=== PATIENT | male | born 1960 | race Caucasian/White ===

== ENCOUNTER → 2020-04-11 08:40 | Outpatient (CLI) | payer OTHER, SELFPAY ==
[2020-04-11 09:21] LABS: Bacteria Urine None Seen; RBC Urine None Seen (0-5/HPF); WBC Urine None Seen (0-5/HPF)
[2020-04-11 10:02] LABS: Add Manual Diff / Slide Review NO; Basophils Absolute Auto 0 /uL (0-100); Basophils Percent Auto 0.4 % (0-2); Eosinophils Absolute Auto 100 /uL (0-450); Eosinophils Percent Auto 1.6 % (2-4); Hematocrit 46.4 % (41-53); Hemoglobin 15.7 g/dL (13.5-17.5); Lymphocytes Absolute Auto 1700 /uL (1100-4500); Lymphocytes Percent Auto 25.1 % (25-40); Mean Corpuscular HGB Conc 33.8 % (30-36); Mean Corpuscular Hemoglobin 29.7 PG (26-34); Mean Corpuscular Volume 87.9 fL (80-100); Monocytes Absolute Auto 800 /uL (0-900); Monocytes Percent Auto 11.1 % (3-14); Neutrophils Absolute Auto 4200 /uL (1500-7000); Neutrophils Percent Auto 61.8 % (50-75); Platelet Count 295 X10^3/uL (150-400); Red Blood Cell Count 5.28 X10^6/uL (4.5-5.9); Red Cell Distribution Width 13.5 % (11.6-14.8); White Blood Cell Count 6.8 X10^3/uL (4.5-11.0)
[2020-04-11 10:04] LABS: Appearance Urine UA CLEAR; Bilirubin Urine UA NEGATIVE (NEGATIVE); Color Urine UA YELLOW; Glucose Urine UA NEGATIVE (Negative); Ketones Urine UA NEGATIVE (NEGATIVE); Leukocyte Esterase Urine UA NEGATIVE (NEGATIVE); Nitrite Urine UA NEGATIVE (Negative); Occult Blood Urine UA NEGATIVE (Negative); Protein Urine UA NEGATIVE (Negative); Specific Gravity Urine UA 1.015 (1.000-1.035); Urobilinogen Urine UA 0.2 E.U./dL (0.2)
[2020-04-11 10:21] LABS: Hemoglobin A1C% w Est Avg Glu 5.8 % (4.0-6.0)
[2020-04-11 10:27] LABS: BUN Creatinine Ratio 20.6 (6-22); Blood Urea Nitrogen 14 mg/dL (9-20); Calcium 9.5 mg/dL (8.4-10.2); Carbon Dioxide 27 mmol/L (22-32); Chloride 101 mmol/L (98-107); Estimated Glomerular Filt Rate > 60.0 mL/min (>60); Glucose 110 mg/dL (80-110); HEMOLYSIS < 15 (0-50); Potassium 4.3 mmol/L (3.4-5.1); Sodium 138 mmol/L (137-145)
[2020-04-11 10:39] LABS: Culture Indicated Urine Cult Not Indicated; Urine Comments Microscopic Normal
== END ==
PROVIDERS: PCP Family Medicine; Referring Provider Orthopaedic Surgery; Visit Provider Orthopaedic Surgery
DX: Z01.818 Encounter for other preprocedural examination (principal); Z01.812 Encounter for preprocedural laboratory examination; R73.9 Hyperglycemia, unspecified; N39.0 Urinary tract infection, site not specified
CPT/HCPCS: 36415; 80048; 81001; 83036; 85025; 93005

== ENCOUNTER → 2020-05-18 13:15 | Outpatient (CLI) | payer OTHER, SELFPAY ==
[2020-05-18 14:50] LABS: COVID19 -Nasal RAPID Negative (Negative)
== END ==
PROVIDERS: PCP Family Medicine; Visit Provider Physician Assistant
DX: Z11.59 Encounter for screening for other viral diseases (principal)
CPT/HCPCS: 87635

== ENCOUNTER 2020-05-22 14:30 | Observation (INO) | payer OTHER, SELFPAY ==
[2020-05-12 12:35] VITALS: BMI 41.8
[2020-05-21] VITALS (17 sets, daily range): BP systolic 84–180; BP diastolic 46–84; PULSE 64–86; RESP 9–20; TEMP 36.2–37.2; O2SAT 90–99; BMI 42.0
[2020-05-21] MEDS: PREGABALIN 75 MG CAPSULE PO (07:05)
[2020-05-21] MEDS: LACTATED RINGERS 1,000 ML 42 ML IV ×2 (07:05→08:40)
[2020-05-21] MEDS: ACETAMINOPHEN 325 MG TABLET 975 MG PO (07:05)
[2020-05-21] MEDS: VANCOMYCIN 1,000 MG/200 ML PIGGYBACK 200 MG IV (07:10)
[2020-05-21] MEDS: CELECOXIB 200 MG CAPSULE PO (07:10)
--- NOTE | 2020-05-21 07:38 | PM.PREOP ---
Pre-operative Note COVID-19 COVID-19 status: Negative Interval Note History & Physical reviewed/Exam performed by Physician: Yes Changes to H&P: No
--- NOTE | 2020-05-21 07:38 | PM.OP.1 ---
Operative Date/Time/Diagnoses Date of procedure: 05/21/20 Time of procedure: 07:58 Pre-op diagnosis: right knee OA Post-op diagnosis: same Procedure & Clinicians Procedure: Right total knee replacement Same procedure as scheduled: Yes Indications: The patient has had progressively worsening right knee pain with radiographic changes consistent with arthritis. Non-operative management has failed and the patient has requested total knee replacement. The risks, benefits and alternatives to surgery were discussed with the patient prior to proceeding. Risks discussed included, but were not limited to, failure to relieve pain, stiffness, infection, nerve damage, deep venous thrombosis, pulmonary embolism, stroke, coma, heart attack, permanent paralysis and , as well as the potential need for eventual revision of the prosthetic. Surgeon: Yazmin De La Cruz Senior Clinical Project Manager: Craig Argueta Anesthesia Type: General and Spinal Operative Notes Findings: Severe right knee osteoarthritis, adequate stability, good bone Closure Type: primary Specimen(s): none sent Prosthetic devices, grafts, tissues, transplants, or devices: [facility] BCS 2 8 femur, 8 tibia, +10 poly, 41 oval patella Applied: drain(s) Estimated Blood Loss (mL): 250 Tourniquet time (min): 74 Procedure in detail: The patient was seen in the pre-operative area, where the patient identified the right knee as the operative site and this was marked with my initials. The patient received pre-operative antibiotics, and was taken to the operating room and placed on the operative table in the supine position. After satisfactory anesthesia, a multimedia services manager out was performed. The right leg was encircled with a tourniquet about the proximal thigh, and the leg was prepared from the toes to the tourniquet with ChloroPrep in the usual fashion and draped through sterile drapes. The leg was elevated and exsanguinated with Eschmark bandage and the tourniquet inflated to [250] mmHg pressure. The knee was approached through an approximately 18 cm incision centered over the patella and carried into the knee through a medial parapatellar arthrotomy. A portion of the medial and lateral meniscus was resected. Soft tissue was carefully mobilized around the patella the patella was measured with a caliper. Bone was resected from the patella and the patellar height was reconstituted with up an appropriate sized patellar component. A cover was then placed on the patella. A small amount of additional medial and lateral meniscus was resected. The distal femur was cut at 5?. A [+2] cut was used. It looked like an appropriate distal femoral cut and the cut was made without difficulty. An extramedullary guide was used for the tibial cut. 10 mm was resected off the least affected side.The tibia was prepared. The rotation was assessed. The patient was placed in extension residual medial and lateral meniscus as well as any residual bone was carefully resected. [No] additional tibia was resected. Hemostasis was achieved especially posteriorly. Additional local was injected into the posterior capsule. The extension gap was assessed and additional releases for gap balancing were performed as necessary. It was checked with the gap soa architect. The femoral component was trial was placed and the notch was finished. The rotation was assessed and the appropriate size femoral guide was placed on the distal femur and finishing cuts were made. There was no evidence of notching. The anterior, posterior and chamfer cuts were then made. The posterior osteophytes and soft tissues were then removed. The posterior capsule was injected with part of a mixture of 60 ml 0.25% Marcaine mixed with 20 ml Exparel for post operative pain control. The remainder of this mixture was injected into the capsule and subcutaneous tissues during cement curing. The tibial and femoral components were then placed and the knee placed through a range of motion. Range of motion was [0-130], with good stability throughout the range. The trials were then removed, and the tibia was finished. The bone was prepared with pulsatile lavage, and dried with a sponge. Cement was applied and the final prosthetics placed. Excess cement was removed during and after cement curing. A brief Betadine soak was performed. After confirming there was no extruded cement posteriorly, the final tibial insert was placed. The knee was copiously irrigated and the tourniquet deflated. Hemostasis was obtained with the Bovie cautery. A drain was placed and brought out superolaterally. The capsule was closed with interrupted nonabsorbable suture. The subcutaneous layer was closed with barbed sutures, and the skin with a running 3-0 V-Lock suture and Surgical glue. An Aquacel Ag dressing was applied and the patient was taken to recovery having tolerated the procedure well. Complications: none Post-operative Condition: stable Disposition: Acute Care Plan for aftercare: The patient will be maintained on a standard total knee replacement protocol with weight bearing as tolerated. The patient will receive aspirin and sequential compression devices for DVT prophylaxis. The patient will be discharged home when safe for the home environment.
[2020-05-21] MEDS: CLINDAMYCIN 900 MG/50 ML PIGGYBACK 50 MG IV ×3 (07:57→23:53)
[2020-05-21] MEDS: TRANEXAMIC ACID 1,000 MG VIAL 1000 MG INJ ×2 (08:05→09:40)
--- NOTE | 2020-05-21 08:14 | SUR.OPER ---
Supine on padded OR bed. Pillow under head, arms secured on padded armboards <90 degree abduction. Safety belt across torso. Non-operative leg secured with tape over blanket over lower leg. Operative leg secured in DeMayo positioner. Foam padded brace at thigh of operative leg.
[2020-05-21] MEDS: BUPIVACAINE LIPOSOME 266 MG/20 ML VIAL INJ (08:19)
[2020-05-21] MEDS: BUPIVACAINE 0.25% W/ EPI (PF) 10 ML VIAL 20 ML INJ (08:20)
[2020-05-21] MEDS: SODIUM CHLORIDE IRRIG SOLUTION 250 ML, POVIDONE-IODINE SPONGE STICKS 1 APPLIC IRR (08:22)
--- NOTE | 2020-05-21 10:40 | DI.RAD.S_ITS ---
PROCEDURE: XR KNEE RT 1TO2V INDICATIONS: post operative films TECHNIQUE: 2 view(s) of the knee acquired. COMPARISON: None. FINDINGS: Bones: Patient is status post knee joint arthroplasty. Hardware components are in expected positions. Visualized bony structures are intact. Soft tissues: Overlying postoperative changes are noted. IMPRESSION: Expected postsurgical change for right knee arthroplasty. Dictated by: Kailey Gilman MD, PhD on 05/21/2020 at 16:43 Approved by: Kailey Gilman MD, PhD on 05/21/2020 at 16:43
[2020-05-21] MEDS: LACTATED RINGERS 1,000 ML 100 ML IV ×2 (11:20→21:28)
[2020-05-21] MEDS: ACETAMINOPHEN 325 MG TABLET 650 MG PO ×2 (12:33→21:28)
[2020-05-21] MEDS: IBUPROFEN 400 MG TABLET PO ×3 (12:33→21:27)
[2020-05-21] MEDS: OXYCODONE IR 5 MG TABLET PO (12:57)
[2020-05-21] MEDS: HYDROMORPHONE 2 MG TABLET PO ×2 (14:36→23:53)
--- NOTE | 2020-05-21 16:53 | PT.IIE ---
Current Diagnoses Unilateral primary osteoarthritis, right knee (05/21/20) Surgery Performed Operation Date: 05/21/20 07:45 Actual Procedures p Total Knee Arthroplasty(Right) - Yazmin De La Cruz MD Surgical History (Last Updated 05/12/20 @ 13:12 by Lucero Banda RN) History of arthroscopy of left shoulder (Acute) History of carpal tunnel release (Acute) History of nasal surgery (Acute) Hx of arthroscopy of left knee (Acute) Hx of knee surgery (Acute ~1975) Medical History (Last Updated 05/12/20 @ 13:12 by Lucero Banda RN) Diverticulitis (Acute) Enlarged prostate (Acute) HLD (hyperlipidemia) (Acute) HTN (hypertension) (Acute) IBS (irritable bowel syndrome) (Acute) OBDULIA on CPAP (Acute) Osteoarthritis (Acute) Physical Therapy Inpatient Evaluation/Re-Eval M1 PT/OT-IP Prior Functional Status Start: 05/21/20 13:41 Freq: NEEDED Status: Active Protocol: Document 05/21/20 14:42 DE (Rec: 05/21/20 14:46 DE [id number]) Medical Review Prior Functional Status Medical History Reviewed Yes Diet/Fluid Consistency Regular Communication WNL. No deficits noted. Able to make needs known. Mobility and Gait IND for all mobility and amb without limitations or using an AD at baseline. Activities of Daily Living and IADL's IND for all ADLs and IADLs including driving at baseline. Social History Household Members spouse Living Arrangements House Number of Floors (Floors) One Floor Number of Stairs To Enter/Railing? 2 small PF steps with no railing. 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 Pt is currently on sick leave. M2 PT-IP Current Condition Start: 05/21/20 13:41 Freq: NEEDED Status: Active Protocol: Document 05/21/20 15:29 DE (Rec: 05/21/20 16:03 DE [id number]) Physical Therapy Current Condition Current Condition Evaluation Date 05/21/20 Treatment Diagnosis R TKA; Difficulty with walking Onset Date 05/21/20 Weight Bearing Status Weight Bearing Status Weight Bear as Tolerated M3 PT-IP Subjective Start: 05/21/20 13:41 Freq: NEEDED Status: Active Protocol: Document 05/21/20 15:29 DE (Rec: 05/21/20 16:03 DE [id number]) Subjective Physical Therapy Visit Type Type Initial Evaluation Visit Start Time 14:28 Visit Stop Time 15:26 Total Visit Minutes 38 Notes SPT Anand led the session under direct supervision of PT Pennie throughout the entire session. Pt was seen in split visit from 1428 to 1440 and from 1500 to 1526. Pt's was present throughout the entire session. Number of WREATH MACHINE OPERATOR Visits 0 Physical Therapy Visit Comments Patient Comments Pt is agreeable to do PT. Patient Goals To return home. Therapy Pain Assessment Pain When Pain Assessed At Rest Pain Present Pain Present Pain Reported Location neck Intensity 5 Scale Used Numeric (0 - 10) Description Aching Pain Management Techniques Timing of Activity with Medications M4 PT-IP Mobility and Gait Start: 05/21/20 13:41 Freq: NEEDED Status: Active Protocol: Document 05/21/20 15:29 DE (Rec: 05/21/20 16:03 DE [id number]) PT-Bed Mobility Assessment Supine to Sit Supine to Sit Contact Guard Assistance, Bedrails Scooting Scooting to Edge of Bed Contact Guard Assistance PT-Transfer Assessment Sit to and From Stand Sit to and from Stand Contact Guard Assistance,Use of Upper Extremities Equipment Transfer Assistive Device Gait Belt,Front Wheeled Walker Orthotic/Prosthetic Devices or Brace: No Transfers Transfer Destination Chair Transfer Technique Stand Step Pivot Transfer Ability Level of Assist Contact Guard Assistance,Use of Upper Extremities Comments Mobility Comments Pt was lying supine in bed with elevated HOB as PT and SPT arrived. Pt's was at bedside. BP in supine was 148/ 89. Pt completed supine to sit at R EOB from flat bed with CGA and use of R bedrail. At EOB, pt performed R heel slides x8 with wash cloth under his foot. Pt then completed sit to stand with CGA and FWW. Pt relied heavily on momentum to stand up. Pt performed side to side weight shifting exercise and was able to tolerate WB on his RLE. Pt then amb ~8 ft to the toilet with CGA and FWW. Pt demonstrated step-to gait pattern with limping, decreased stride length, and decreased feet clearance. Pt attempted to void in standing but was unsuccessful. Pt amb ~ 20 ft out of the bathroom, around foot of bed, and back to the chair with CGA and FWW. Pt demonstrated mild labored breathing during and after amb . Pt sat down on the chair with CGA and use of B armrests . Pt was reclined in the chair . Call light placed within reach. Gait Assessment Gait Gait Assistance Required: Contact Guard Assist Distance (Feet) 20 Able to Maintain Weight Bearing Status Yes During Gait Assistive Devices Assistive Device Gait Belt,Front Wheeled Walker Orthotic/Prosthetic Devices or Brace: No Gait Deviations General Gait Pattern Antalgic,Decreased Stride Length,Decreased Feet Clearance,Flexed Trunk,Step-to Gait Factors Limiting Gait Function Factors Limiting Gait Function Decreased Activity Tolerance, Decreased Strength,Limited Range of Motion,Pain,Poor Balance,Respiratory Distress Comments Gait Comments See mobility comments. Stair Climbing Assessment Comments Stair Climbing Comments Not assessed. PT-Balance Assessment Sitting Balance and Reactions Static Sitting Balance Ability Normal Dynamic Sitting Balance Ability Normal Standing Balance and Reactions Static Standing Balance Ability Good Dynamic Standing Balance Ability Fair M5 PT-IP Objective Assessments Start: 05/21/20 13:41 Freq: NEEDED Status: Active Protocol: Document 05/21/20 15:29 DE (Rec: 05/21/20 16:03 DE [id number]) Orientation Orientation/Cognition Level of Alertness Alert Orientation Name,Age,Birthday,Month,Date, Year,Day of Week,Place, Situation Language Function Ability No Deficits Noted Safety Awareness Understands Safety Issues Memory Description No Deficits Noted Gross Range of Motion Lower Extremity ROM Assessment Right Impaired Strength Lower Extremity Strength Assessment Right Impaired Coordination Assessment Gross Coordination Gross Coordination WNL Sensation Assessment Sensation Gross Sensation WNL Light Touch Intact Muscle Tone Muscle Tone WNL Yes M6 PT-IP Treatment Start: 05/21/20 13:41 Freq: NEEDED Status: Active Protocol: Document 05/21/20 15:29 DE (Rec: 05/21/20 16:03 DE [id number]) Physical Therapy Treatment Exercises Exercises Ankle Pumps,Gluteal Sets,Quad Sets,Heel Slides Education Education Provided Weight Bearing Status,Post-Op Packet,Safety Other Treatments Other Treatment Performed Pt education was provided on WB status, safety, and role of PT. M7 PT-IP Assessment and Plan Start: 05/21/20 13:41 Freq: NEEDED Status: Active Protocol: Document 05/21/20 15:29 DE (Rec: 05/21/20 16:03 DE [id number]) PT Summary Assessment and Plan Potential Rehabilitation Potential Good Status of Condition at Evaluation Stable Summary Impairments Pain,ROM,Strength,Balance,Bed Mobility,Transfers,Gait, Activity Tolerance Assessment Summary Tyrone is a 59 yo male s/p R TKA POD0. At baseline, pt was IND for all mobility, amb, and ADLs including driving without limitations or using assistive device. On evaluation, pt requires CGA for all mobility, transfers, and amb with use of FWW. Pt amb ~20 ft without any loss of balance but demonstrated some labored breathing. Pt is not safe to d/c home at this point . Pt will need to improve activity tolerance and perform 2 PF steps without railing before d/c. PT anticipates pt will d/c home with assistance and FWW once medically stable. Pt will benefit from outpatient PT to improve his knee strength and ROM. Goals Bed Mobility Goal Standby Assistance Transfer Goal Standby Assistance,Front Wheeled Walker Gait Goal Standby Assistance,Front Wheel Walker Gait Distance 100 Other Goals Pt will perform 2 PF steps with FWW and no railing. Days to Meet Goals 5 Frequency of Treatment Frequency Of Treatment Twice a Day Treatment Plan Physical Therapy Treatment Plan Bed Mobility Training,Transfer Training,Gait Training, Therapeutic Exercise,Balance Retraining,Post Op Education, Discharge Planning,Hot or Cold Pack Other Recommendations and Next Treatment Supine to sit without using Focus bedrail. 2 PF steps. Amb distance. Recommendations To Nursing Amount of Assist Needed 1 Person Assist Discharge Recommendations PT Discharge Recommendations Home with Assistance, Outpatient PT Transportation Needs at Discharge Private Vehicle
--- NOTE | 2020-05-21 17:03 | PC.NURSE ---
Addendum entered by Xochilt Bailey R.N. 05/21/20 22:20: Pt continues to have increased H/V drainage 510 ml for shift total. Dr. Guerra notified. Per MD continue to monitor drainage. Addendum entered by Xochilt Bailey R.N. 05/21/20 22:13: Pt noted to have increased drainage from H/V. Dr. De La Cruz notified. Per MD clamp drain for 2 hours. Drain clamped from [id number]. Original Note: Bladder scanned; 446 urine retained. Straight cath completed 650 ml UOP. Pt tolerated well.
[2020-05-21] MEDS: OXYCODONE IR 10 MG TABLET PO ×2 (17:08→21:27)
[2020-05-21] MEDS: ASPIRIN EC 81 MG TABLET PO (21:25)
[2020-05-21] MEDS: DOCUSATE 100 MG CAPSULE PO (21:25)
[2020-05-21] MEDS: lisinopriL 10 MG TABLET 30 MG PO (21:25)
[2020-05-21] MEDS: ATORVASTATIN 20 MG TABLET 10 MG PO (21:26)
[2020-05-21] MEDS: TAMSULOSIN 0.4 MG CAPSULE 0.8 MG PO (21:26)
[2020-05-22] VITALS (8 sets, daily range): BP systolic 137–158; BP diastolic 70–82; PULSE 78–93; RESP 12–16; TEMP 36.1–36.9; O2SAT 94–98
[2020-05-22] MEDS: IBUPROFEN 400 MG TABLET PO ×6 (00:01→21:06)
--- NOTE | 2020-05-22 00:37 | PC.NURSE ---
Patient seen and assessed at 0005. Is alert and oriented. Breath sounds CTA with RA sat of 95%. HRR. BP elevated at 143/76 but was trending higher yesterday afternoon/evening. Denies nausea. BT present and states he has passed flatus. Voiding know per urinal after having retention problems post op; denies dysuria, frequency or urgency. Aquacel dressing covered with andrea wrap to right knee is intact with small spot of drainage noted on distal end. States pain is currently 6/10 but was too early to give Oxycodone so switched to po Dilaudid since Oxycodone does not seem to be lasting long enough; also medicated with scheduled Ibuprofen and ice pack applied. CMS is intact. Wearing bilateral calf SCD's. Fall risk score is moderate but in room and patient verbalizes agreement to call for assistance so bed alarm is not activated at this time. Patient reports he was up with therapy yesterday walking with walker and 1 assist and also worked on stairs and is expecting to DC in a.m.
[2020-05-22] MEDS: HYDROMORPHONE 2 MG TABLET PO ×2 (04:02→10:59)
[2020-05-22 06:12] LABS: Hematocrit 38.2 % (41-53); Hemoglobin 12.9 g/dL (13.5-17.5)
--- NOTE | 2020-05-22 09:31 | P.DS_ITS ---
History of Present Illness History of Present Illness Date Patient Seen: 05/22/20 Time Patient Seen: 09:31 Chief complaint: OPB Narrative: Patient's pain is mild. Denies fever /chills. No nausea /vomiting. Discharge Providers Provider Discharge Date: 05/22/20 Primary care physician: Gino Gu MD Consults: 05/20/20 10:40 Consult to Anesthesiology Routine Comment: Consulting Provider: Anesthesiologist Reason for consultation: Regional block for post operative pain control 05/21/20 11:06 Consult to Discharge Planning Routine Comment: Consult to Physical Therapy Evaluate & Treat Comment: Physician Instructions: postop TKA protocol Consult to Respiratory Therapy Evaluate & Treat Comment: Physician Instructions: Evaluate and treat Discharge provider: Craig Argueta PA-C Summary Hospital Course Discharge Diagnosis: Right knee osteoarthritis Hospital Course: [address] [address] Operative Note Patient: Tyrone Ellis CMR#: [id number] : 1960Acct:[id number] Age/Sex: 59 / M Date of Service: 05/21/20 Provider: Yazmin De La Cruz MD Operative Date/Time/Diagnoses Date of procedure: 05/21/20 Time of procedure: 07:58 Pre-op diagnosis: right knee OA Post-op diagnosis: same Procedure & Clinicians Procedure: Right total knee replacement Same procedure as scheduled: Yes Indications: The patient has had progressively worsening right knee pain with radiographic changes consistent with arthritis. Non-operative management has failed and the patient has requested total knee replacement. The risks, benefits and alternatives to surgery were discussed with the patient prior to proceeding. Risks discussed included, but were not limited to, failure to relieve pain, stiffness, infection, nerve damage, deep venous thrombosis, pulmonary embolism, stroke, coma, heart attack, permanent paralysis and , as well as the potential need for eventual revision of the prosthetic. Surgeon: Yazmin De La Cruz Armhole Feller Handstitching Machine: Craig Argueta Anesthesia Type: General and Spinal Operative Notes Findings: Severe right knee osteoarthritis, adequate stability, good bone Closure Type: primary Specimen(s): none sent Prosthetic devices, grafts, tissues, transplants, or devices: [facility] [employer] [facility] [employer] [facility] BCS 2 8 femur, 8 tibia, +10 poly, 41 oval patella Applied: drain(s) Estimated Blood Loss (mL): 250 Tourniquet time (min): 74 Patient admitted to the hospital for right total knee arthroplasty. Patient consented to the same. Patient taken to operating room yesterday underwent right total knee replacement. Patient back in his room recovering well as in stable condition. Patient did well with physical therapy. Patient does have assistance at home. He will be discharged home today in stable condition. Status at Discharge Cognitive/behavioral status at discharge: at baseline, oriented Functional status at discharge: uses cane/walker Overall status at discharge: patient is progressing back to baseline Time Spent with Patient Time spent: Less than 30 minutes Exam Vital Signs (past 8 hours): - 05/22/20 03:50 05/22/20 08:05 Temperature 98.0 F 97.5 F L Pulse Rate 83 78 Respiratory Rate 16 16 Blood Pressure 139/70 137/77 Pulse Oximetry 96 95 Oxygen Delivery Method Room Air Oxygen Flow Rate 0 Narrative Exam Narrative: 59-year-old male resting comfortably in bed in no apparent distress. Right knee dressing is clean, dry and intact. Motor functions intact distal right lower extremity. Sensation grossly intact to light touch distal right lower extremity. Objective Labs Result Diagrams: 05/22/20 05:30 Labs: Laboratory Results - last 24 hr 05/22/20 05:30 Hgb 12.9 L Hct 38.2 L Discharge Assessment & Plan Assessment and Plan Assessment: Patient progressing as expected status post right total knee arthroplasty Plan of Treatment: Discharged today in stable condition. Discharge Plan Discharge Plan Patient Disposition: Home Discharge orders & Medications Discharge Orders: Discharge (Order); Ordered 05/22/20 Ordered By: Craig Argueta Prescriptions: Continued atorvastatin 10 mg Tablet 10 mg PO BEDTIME RF: 0 tamsulosin [Flomax] 0.4 mg Capsule 0.8 mg PO BEDTIME RF: 0 lisinopril 30 mg Tablet 30 mg PO BEDTIME RF: 0 ibuprofen 600 mg Tablet 600 mg PO QD-BID PRN (Reason: Pain) RF: 0 Multi Complete with Iron 18-400 mg-mcg Tablet 1 tab PO DAILY RF: 0 Follow up/Referrals: Gino Gu MD [Primary Care Provider] - Yazmin De La Cruz MD [Physician] - (2 weeks) Diet/Activity/Treatments Activity: WBAT Cold/Heat Therapy: ice as needed Skin/Wound/Dressing Care Report to your healthcare provider any signs of infection, such as:: chills, fever, increased pain, unusual drainage and unusual redness Dressing: keep clean and dry Visit Report/Discharge Packet Instructions: DI for Knee Replacement Stand Alone Forms: Surgery Discharge Discharge Data Primary Care Provider: Gino Gu Attending Provider: Yazmin De La Cruz VTE Deep Vein Thrombosis/Pulmonary Embolism Present on Admission: No
[2020-05-22] MEDS: DOCUSATE 100 MG CAPSULE PO ×2 (09:40→21:06)
[2020-05-22] MEDS: ASPIRIN EC 81 MG TABLET PO ×2 (09:41→21:07)
[2020-05-22] MEDS: MULTIVITAMIN 1 TABLET 1 TAB PO (09:41)
[2020-05-22] MEDS: OXYCODONE IR 10 MG TABLET PO ×3 (09:41→19:11)
[2020-05-22] MEDS: ACETAMINOPHEN 325 MG TABLET 650 MG PO ×3 (09:42→21:06)
--- NOTE | 2020-05-22 12:03 | PC.NURSE ---
Addendum entered by Kourtney Mendez R.N. 05/22/20 14:48: Patient did not want to do afternoon PT because of pain level. I did get him to walk in the [place] with me with the walker. Patient would like to stay another night to continue PT tomorrow and keep up pain control. Patient pain level has now come to a 6/10. Original Note: Patient pain control an issue after PT this AM, patient reports pain 8/10. Patient given 10mg oxycodone at 0941 and 2mg of dilaudid at 1100. Still has no reports of pain relief. Dannielle BLAKE telephoned and she gave a verbal order for 4mg of Dilaudid Q3 and 50mg of Vistaril Q6. Will see if these changes help pain level.
--- NOTE | 2020-05-22 12:16 | PT.IPTN ---
Current Diagnoses Unilateral primary osteoarthritis, right knee (05/21/20) Surgery Performed Operation Date: 05/21/20 07:45 Actual Procedures p Total Knee Arthroplasty(Right) - Yazmin De La Cruz MD Physical Therapy Treatment Note M2 PT-IP Current Condition Start: 05/21/20 13:41 Freq: NEEDED Status: Active Protocol: Document 05/21/20 15:29 DE (Rec: 05/21/20 16:03 DE [id number]) Physical Therapy Current Condition Current Condition Evaluation Date 05/21/20 Treatment Diagnosis R TKA; Difficulty with walking Onset Date 05/21/20 Weight Bearing Status Weight Bearing Status Weight Bear as Tolerated M3 PT-IP Subjective Start: 05/21/20 13:41 Freq: NEEDED Status: Active Protocol: Document 05/22/20 11:34 DE (Rec: 05/22/20 12:02 DE [id number]) Subjective Physical Therapy Visit Type Type Treatment Note Visit Start Time 09:42 Visit Stop Time 10:12 Total Visit Minutes 30 Notes SPT Anand led the session under direct supervision of PT Eulogio throughout the entire session. Number of DENTAL SERVICE TECHNICIAN Visits 0 Physical Therapy Visit Comments Patient Comments Pt is agreeable to do PT. Patient Goals To return home. Therapy Pain Assessment Pain When Pain Assessed At Rest Pain Present Pain Present Pain Reported Location Right Knee Intensity 3 Scale Used Numeric (0 - 10) Description Aching M4 PT-IP Mobility and Gait Start: 05/21/20 13:41 Freq: NEEDED Status: Active Protocol: Document 05/22/20 11:34 DE (Rec: 05/22/20 12:02 DE [id number]) PT-Bed Mobility Assessment Supine to Sit Supine to Sit Contact Guard Assistance Scooting Scooting to Edge of Bed Contact Guard Assistance PT-Transfer Assessment Sit to and From Stand Sit to and from Stand Contact Guard Assistance,Use of Upper Extremities Equipment Transfer Assistive Device Gait Belt,Front Wheeled Walker Orthotic/Prosthetic Devices or Brace: No Transfers Transfer Destination Chair Transfer Technique Stand Step Pivot Transfer Ability Level of Assist Contact Guard Assistance,Use of Upper Extremities Comments Mobility Comments Pt was lying supine in bed with elevated HOB as PT and SPT arrived. Pt completed supine to sit at R EOB from flat bed CGA without using bedrail. Pt then performed sit to stand with FWW CGA in staggered stance. Pt was able to stand up in a more controlled way than yesterday without using excessive momentum. Pt amb ~8 ft to the toilet with FWW CGA. Pt attempted to void in standing but was unsuccessful. Pt then amb ~60 ft around foot of bed, out in the hallway with FWW CGA. Pt demonstrated antalgic step-to gait pattern decreased stride length, decreased feet clearance, and lack of knee extension. When pt was instructed to try step-through pattern, he was able to do it but he had decreased L stride length compared to the R. Pt demonstrated sweating and mild labored breathing. Pt sat down on w/c and rested for ~1 min. Pt then performed 1 PF step up and down x1 with FWW and 1P min assist. Pt demonstrated slight unsteadiness for ascending but was stable for descending. Pt then amb ~60 ft back to his room and sat down on the chair with FWW CGA. Call light placed within reach. Gait Assessment Gait Gait Assistance Required: Contact Guard Assist Distance (Feet) 60 Able to Maintain Weight Bearing Status Yes During Gait Assistive Devices Assistive Device Gait Belt,Front Wheeled Walker Orthotic/Prosthetic Devices or Brace: No Gait Deviations General Gait Pattern Antalgic,Decreased Stride Length,Decreased Feet Clearance,Flexed Trunk,Step-to Gait Factors Limiting Gait Function Factors Limiting Gait Function Decreased Activity Tolerance, Decreased Strength,Limited Range of Motion,Pain,Poor Balance,Respiratory Distress Comments Gait Comments See mobility comments. Stair Climbing Assessment Evaluation Level of Assist On Stairs Minimal Assistance,1 Person Assistance Devices Stair Climbing Assistive Devices Front Wheel Walker Technique/Endurance Stair Climbing Direction Ascend and Descend Stair Climbing Technique Step to Step Number of Steps Climbed 1 Stair Climbing Set # Repetitions (reps) 1 Comments Stair Climbing Comments See mobility comments. PT-Balance Assessment Sitting Balance and Reactions Static Sitting Balance Ability Normal Dynamic Sitting Balance Ability Normal Standing Balance and Reactions Static Standing Balance Ability Good Dynamic Standing Balance Ability Fair M5 PT-IP Objective Assessments Start: 05/21/20 13:41 Freq: NEEDED Status: Active Protocol: Document 05/21/20 15:29 DE (Rec: 05/21/20 16:03 DE [id number]) Orientation Orientation/Cognition Level of Alertness Alert Orientation Name,Age,Birthday,Month,Date, Year,Day of Week,Place, Situation Language Function Ability No Deficits Noted Safety Awareness Understands Safety Issues Memory Description No Deficits Noted Gross Range of Motion Lower Extremity ROM Assessment Right Impaired Strength Lower Extremity Strength Assessment Right Impaired Coordination Assessment Gross Coordination Gross Coordination WNL Sensation Assessment Sensation Gross Sensation WNL Light Touch Intact Muscle Tone Muscle Tone WNL Yes M6 PT-IP Treatment Start: 05/21/20 13:41 Freq: NEEDED Status: Active Protocol: Document 05/22/20 11:34 DE (Rec: 05/22/20 12:02 DE [id number]) Physical Therapy Treatment Exercises Exercises Ankle Pumps,Gluteal Sets,Quad Sets,Heel Slides Education Education Provided Weight Bearing Status,Post-Op Packet,Safety Other Treatments Other Treatment Performed Pt education was provided on WB status, safety, and role of PT. M7 PT-IP Assessment and Plan Start: 05/21/20 13:41 Freq: NEEDED Status: Active Protocol: Document 05/22/20 11:34 DE (Rec: 05/22/20 12:02 DE [id number]) PT Summary Assessment and Plan Potential Rehabilitation Potential Good Status of Condition at Evaluation Stable Summary Impairments Pain,ROM,Strength,Balance,Bed Mobility,Transfers,Gait, Activity Tolerance Assessment Summary Overall, pt tolerated treatment well and was able to demonstrate improvement in mobility and amb. Pt also performed 1 PF step up and down with FWW and 1P min assist. Pt demonstrated slight unsteadiness when ascending. Pt will need to perform 2 PF steps with FWW without any unsteadiness. PT plan to see pt in the PM with his to ensure safety and provide CG. PT anticipates pt will d/c home with assistance once he is able to perform 2 PF steps and medically stable. Goals Bed Mobility Goal Standby Assistance Transfer Goal Standby Assistance,Front Wheeled Walker Gait Goal Standby Assistance,Front Wheel Walker Gait Distance 100 Other Goals Pt will perform 2 PF steps with FWW and no railing. Days to Meet Goals 5 Frequency of Treatment Frequency Of Treatment Twice a Day Treatment Plan Physical Therapy Treatment Plan Bed Mobility Training,Transfer Training,Gait Training, Therapeutic Exercise,Balance Retraining,Post Op Education, Discharge Planning,Hot or Cold Pack Other Recommendations and Next Treatment 2 PF steps. Focus Recommendations To Nursing Amount of Assist Needed 1 Person Assist Discharge Recommendations PT Discharge Recommendations Home with Assistance, Outpatient PT Transportation Needs at Discharge Private Vehicle This IE noted is written by SPT Anand Coffey. It has been reviewed and approved by PT Anneliese Cavazos
[2020-05-22] MEDS: hydrOXYzine pamoate 25 MG CAPSULE 50 MG PO (12:21)
--- NOTE | 2020-05-22 13:18 | CM.DANOTE ---
Discharge Planning/Care Management DCP: assessment: case received, EMR reviewed. Discussed in Team Rounds. PT is a 59 year old male who admitted yesterday for a scheduled R TKA. Surgeon: Tereso De La Cruz PCP: Gino Gu Payer: Abelardo Ramirez [facility] A dc to home order is noted by sandra Argueta, placed early this morning. PT is working with pt today and thus far noted indicate pt will be able to d/c to home with 's support and OUTPT PT. A check in now shows that pt has been having a great deal of pain since PT session and RN caring for pt on unit has called sandra Keith and new pain medications are being tried. P: likely home with spouse Cassandra's assist when stable for same. Unclear is this will be today...will be following. CM Discharge Assessment Start: 05/22/20 13:16 Freq: Status: Active Protocol: Document 05/22/20 13:17 ITV (Rec: 05/22/20 13:17 ITV [id number]) Discharge Planning Assessment Advance Directives? No History Provided By Medical Record Prior Living Arrangements House Household Members spouse Pre-Anesthesia Assessment Start: 05/12/20 12:35 Freq: Status: Complete Protocol: Document 05/12/20 12:35 CAB (Rec: 05/12/20 13:33 CAB [id number]) Pre-Anesthesia Assessment Preferred Name Alan Patient Information Reviewed Via Phone Assessment Assessment Completed With Patient Diagnostic Results BMP/CMP,CBC,EKG,Urinalysis Comment Labs/EKG @ [facility], COVID screen @ [facility] 05/18/20 Primary Care Provider Gino Gu Seen Specialist in Last 12 Months Yes Specialist Seen Orthopedist Primary Language Tristanian Rn Digestive Required No Height 177.8 cm Weight 132.449 kg Body Mass Index (BMI) 41.8 Hearing Ability Normal Visual Assist Glasses Dentition Type Teeth, Natural Present,Teeth, Missing Barriers to Learning None Other Aids No Hx Anesthesia Reactions No Hx Family Anesthesia Reaction No Hx Malignant Hyperthermia No Hx Blood Transfusions No Anesthesia Review Requested No alcohol intake current Alcohol Intake Frequency Other: Occasional Smoking Status Never smoker Substance Use Type does not use Pain Present Pain Reported Musculoskeletal Symptoms Abnormal Gait,Difficulty Walking,Joint Pain,Neck Pain History of Falling (Recent or History of No ) Patient is completely paralyzed or No completely immobile Mental Status Oriented to own ability Is patient on oxygen? No Does patient have NINA/SOB No Hx Sleep Apnea Yes CPAP/BIPAP use prescribed and used routinely Will Bring CPAP/BIPAP DOS Yes Currently Taking a Beta Becky No Can You Climb a Flight of Stairs Without Yes SOB Hx Chest Pain No Hx SOB No Hx Syncope or Dizziness No Anti-Coagulant Therapy No Has a Data Services Developer No Cardiac Testing No Hx Pacemaker/ICD No Pacemaker Rep Required? No Cardiac Clearance Received Not Applicable Diet Type At Home Regular dysphagia No Urinary Catheter Present No Hx Urinary Self Catheterization No Diabetes No HgbA1C 5.8 Date 04/11/20 Hx Drug Resistant Organism No Presence of External or Internal Medical Yes: CPAP Devices Have you had any close contact with Yes: positive in October someone diagnosed with COVID-19? Marital Status Lives With spouse Prior Living Arrangements House Number of Floors (Floors) One Floor Support System Spouse Does the Patient Have Assistance After Yes Surgery Patient Discharge Plan Description Return Home Comment Pt not advised on length of stay per surgeon Feels Safe in Current Environment Yes Been Physically Hurt or Threatened By a No Person in Current Environment Do you have thoughts of harming yourself None or others? Are you currently considering suicide? No Do you have a plan to hurt yourself or No Plan others? Do You Have Any Spiritual Beliefs That No May Affect Your HC Choices? Do You Have Any Cultural Practices That No May Affect Your HC Choices? Who Can We Speak to About Patient's Care Family, friends Identifying Code for Release of Patient Declines to issue Information Health Care Proxy/Next of Kin Cassandra () Health Care Proxy Emergency Contact Name Cassandra () Emergency Contact Advance Directives? No Power of Environmental Remediation Specialist No PAC Instructions Bring CPAP/ BIPAP,Durable medical equipment,Medications to take/avoid,Nasal antibiotic ,No ETOH/petroleum product on skin DOS,NPO,Pre-surgical wash ,Sturdy shoes/comfortable clothes,Do not bring valuables and remove jewelry
[2020-05-22] MEDS: HYDROMORPHONE 2 MG TABLET 4 MG PO (14:21)
--- NOTE | 2020-05-22 14:22 | PT-IP ANOTE ---
Attempted to see pt at 1340. Pt was asleep while pt's was at bedside. Pt's communicated that pt was having increased pain after doing PF step this morning and does not want to participate in PT this afternoon. Pt's reported that the steps at home are much smaller than the steps here at the hospital and they have raza right next to the steps they can use for more support if they need. Pt's reported that she believes pt will be able to go up the 2 steps to enter home safely with her assistance and FWW and does not want him to have more pain while he is in the hospital before d/c. Will see pt tomorrow morning and try 4 inches step if possible.
[2020-05-22] MEDS: TAMSULOSIN 0.4 MG CAPSULE 0.8 MG PO (21:05)
[2020-05-22] MEDS: lisinopriL 10 MG TABLET 30 MG PO (21:06)
[2020-05-22] MEDS: ATORVASTATIN 20 MG TABLET 10 MG PO (21:07)
[2020-05-22] MEDS: SODIUM CHLORIDE 0.9% FLUSH 10 ML IV (21:08)
[2020-05-23] MEDS: IBUPROFEN 400 MG TABLET PO ×3 (00:49→08:26)
--- NOTE | 2020-05-23 01:37 | PC.NURSE ---
Addendum entered by Janet Jack R.N. 05/23/20 02:38: Up to bathroom with SBA + walker to urinate. States pain in knee is now 4/10 after activity but not wanting any narcotic pain medications at this time. Ice applied and medicated with Vistaril. Original Note: Patient assessed at 2345. Is alert and oriented. Breath sounds diminished but CTA with RA sat of 94%; is using home CPAP. HRR. BP elevated at 154/82 which is consistent with previous readings. Denies nausea. BT present and is passing flatus. Voiding per urinal; denies dysuria, frequency or urgency. Is able to move himself in bed. Gait not assessed but reportedly gets up with walker and 1 assist. Aquacel dressing to right knee is covered with andrea; 2 small spots drainage noted toward distal edge of aquacel. Hemovac is intact and compressed. Rates knee pain severity as 2-3/10 but declines need for pain medication. CMS is intact. Wearing bilateral calf SCD's. Fall risk score is moderate but patient calls approrpriately; bed alarm is activated.
[2020-05-23] MEDS: hydrOXYzine pamoate 25 MG CAPSULE 50 MG PO ×2 (02:37→10:13)
[2020-05-23 04:30] VITALS: BP 144/73; PULSE 78; RESP 16; TEMP 36.4; O2SAT 94
[2020-05-23 07:22] VITALS: BP 137/66; PULSE 76; RESP 16; TEMP 35.9; O2SAT 94
[2020-05-23] MEDS: OXYCODONE IR 10 MG TABLET PO ×2 (08:26→11:19)
[2020-05-23] MEDS: ASPIRIN EC 81 MG TABLET PO (08:26)
[2020-05-23] MEDS: DOCUSATE 100 MG CAPSULE PO (08:26)
[2020-05-23] MEDS: MULTIVITAMIN 1 TABLET 1 TAB PO (08:26)
[2020-05-23] MEDS: ACETAMINOPHEN 325 MG TABLET 650 MG PO (08:27)
[2020-05-23] MEDS: SODIUM CHLORIDE 0.9% FLUSH 10 ML IV (08:27)
--- NOTE | 2020-05-23 08:55 | PM.PN.1 ---
Subjective Subjective Date Patient Seen: 05/23/20 Time Patient Seen: 08:56 Interval history: Patient is POD #2 s/p right TKA with Dr. De La Cruz. He was able to mobilize well with PT yesterday AM but had significant pain control issues thereafter and refused PT in the afternoon due to this. He was transitioned to Dilaudid 2-4mg Q3hrs and Vistaril 50mg Q6hr added for spasms which provided relief overnight. He has been voiding appropriately and tolerating a diet. No complaints. Exam Vital Signs (past 8 hours): - 05/23/20 04:30 05/23/20 07:22 Temperature 97.5 F L 96.6 F L Pulse Rate 78 76 Respiratory Rate 16 16 Blood Pressure 144/73 H 137/66 Pulse Oximetry 94 94 Oxygen Delivery Method Room Air Oxygen Flow Rate 0 Narrative Exam Narrative: 59 year old male resting in bed. Alert and oriented in no acute distress. EVER wrap in place. Underlying Aquacel is CDI with minimal shadow drainage. 5/5 ankle dorsiflexion and plantar flexion. Calves are soft, nontender bilaterally. Objective Labs Result Diagrams: 05/22/20 05:30 Assessment & Plan Assessment & Plan narrative: Patient is POD#2 s/p right TKA. Improved pain control overnight with increased Dilaudid/Vistaril. Will provide scripts of these for discharge. Continue ASA 81mg BID for DVT prophylaxis. Continue to work with PT. is available as medical records receptionist. Discharge to home this afternoon. Quality VTE Deep Vein Thrombosis/Pulmonary Embolism Present on Admission: No
--- NOTE | 2020-05-23 09:00 | PT.IPTN ---
Current Diagnoses Unilateral primary osteoarthritis, right knee (05/22/20) Surgery Performed Operation Date: 05/21/20 07:45 Actual Procedures p Total Knee Arthroplasty(Right) - Yazmin De La Cruz MD Physical Therapy Treatment Note M2 PT-IP Current Condition Start: 05/21/20 13:41 Freq: NEEDED Status: Active Protocol: Document 05/21/20 15:29 DE (Rec: 05/21/20 16:03 DE [id number]) Physical Therapy Current Condition Current Condition Evaluation Date 05/21/20 Treatment Diagnosis R TKA; Difficulty with walking Onset Date 05/21/20 Weight Bearing Status Weight Bearing Status Weight Bear as Tolerated M3 PT-IP Subjective Start: 05/21/20 13:41 Freq: NEEDED Status: Active Protocol: Document 05/23/20 09:00 AB (Rec: 05/23/20 10:40 AB [id number]) Subjective Physical Therapy Visit Type Type Treatment Note Visit Start Time 09:00 Visit Stop Time 09:46 Total Visit Minutes 46 Number of ENTERPRISE MOBILITY ARCHITECT Visits 0 Physical Therapy Visit Comments Patient Comments pt is agreeable to do PT Therapy Pain Assessment Pain When Pain Assessed At Rest Pain Present Pain Present Pain Reported Location Right Knee Intensity 3 Scale Used increases to 4-5/10 with mobility Pain Management Techniques Apply Cold,Distraction, Modification of Treatment,Re- positioning,Timing of Activity with Medications M4 PT-IP Mobility and Gait Start: 05/21/20 13:41 Freq: NEEDED Status: Active Protocol: Document 05/23/20 09:00 AB (Rec: 05/23/20 10:40 AB [id number]) PT-Bed Mobility Assessment Supine to Sit Supine to Sit Standby Assistance PT-Transfer Assessment Sit to and From Stand Sit to and from Stand Contact Guard Assistance,1 Person Assistance,Use of Upper Extremities Equipment Transfer Assistive Device Gait Belt,Front Wheeled Walker Orthotic/Prosthetic Devices or Brace: No Transfers Transfer Destination Toilet Transfer Technique ambulated using FWW Transfer Ability Level of Assist Contact Guard Assistance Comments Mobility Comments caregiver training conducted with spouse. educated on how to assist pt with HEP, using safety belt and how to assist pt. pt completed bed mobility supine to sit SBA. educated spouse on how to assist pt if pt needs assistance. spouse was able to put safety belt on pt and how to assist pt with sit<>stand ambulation using FWW. pt ambulated to the toilet using FWW with spouse assisting. ambulated out of the toilet using FWW. spouse was able to assist pt safely. pt ambulated in the hallway using FWW 75 ft SBA to CGA with spouse assisting. educated on stair climbing. pt completed up/down platform step using FWW with spouse assisting and completed safely . pt assisted back to the room. ambulated from w/c to chair using FWW SBA. positioned pt on chair. call light and table placed within reach. pt and spouse has no further concerns. Gait Assessment Gait Gait Assistance Required: Standby Assistance,Contact Guard Assist Distance (Feet) 75 Assistive Devices Assistive Device Gait Belt,Front Wheeled Walker Orthotic/Prosthetic Devices or Brace: No Gait Deviations General Gait Pattern Antalgic,Decreased Stride Length,Decreased Feet Clearance Factors Limiting Gait Function Factors Limiting Gait Function Decreased Activity Tolerance, Decreased Strength,Limited Range of Motion,Pain,Poor Balance Comments Gait Comments pls refer to mobility section for details Stair Climbing Assessment Evaluation Level of Assist On Stairs Contact Guard Assistance, Minimal Assistance Devices Stair Climbing Assistive Devices Front Wheel Walker Technique/Endurance Stair Climbing Direction Ascend and Descend Stair Climbing Technique Step to Step Number of Steps Climbed 1 Stair Climbing Set # Repetitions (reps) 2 Comments Stair Climbing Comments completed up/down platform step using FWW with spouse assisting and completed safely . M5 PT-IP Objective Assessments Start: 05/21/20 13:41 Freq: NEEDED Status: Active Protocol: Document 05/21/20 15:29 DE (Rec: 05/21/20 16:03 DE [id number]) Orientation Orientation/Cognition Level of Alertness Alert Orientation Name,Age,Birthday,Month,Date, Year,Day of Week,Place, Situation Language Function Ability No Deficits Noted Safety Awareness Understands Safety Issues Memory Description No Deficits Noted Gross Range of Motion Lower Extremity ROM Assessment Right Impaired Strength Lower Extremity Strength Assessment Right Impaired Coordination Assessment Gross Coordination Gross Coordination WNL Sensation Assessment Sensation Gross Sensation WNL Light Touch Intact Muscle Tone Muscle Tone WNL Yes M6 PT-IP Treatment Start: 05/21/20 13:41 Freq: NEEDED Status: Active Protocol: Document 05/23/20 09:00 AB (Rec: 05/23/20 10:40 AB [id number]) Physical Therapy Treatment Exercises Exercises Heel Slides Education Education Provided Safety Other Treatments Other Treatment Performed reviewed HEP M7 PT-IP Assessment and Plan Start: 05/21/20 13:41 Freq: NEEDED Status: Active Protocol: Document 05/23/20 09:00 AB (Rec: 05/23/20 10:40 AB [id number]) PT Summary Assessment and Plan Potential Rehabilitation Potential Good Summary Impairments Pain,ROM,Strength,Balance, Coordination,Sensation,Bed Mobility,Transfers,Gait, Activity Tolerance Progress Towards Goals Progressing Toward Goals Assessment Summary caregiver training conducted and spouse was able to assist pt safely. pt plans to go home today and is set up for outpt PT. pt may go home when medically stable Goals Bed Mobility Goal Standby Assistance Transfer Goal Standby Assistance,Front Wheeled Walker Gait Goal Standby Assistance,Front Wheel Walker Gait Distance 100 Other Goals Pt will perform 2 PF steps with FWW and no railing. Days to Meet Goals 5 Frequency of Treatment Frequency Of Treatment Twice a Day Treatment Plan Physical Therapy Treatment Plan Bed Mobility Training,Transfer Training,Gait Training, Therapeutic Exercise,Balance Retraining,Post Op Education, Discharge Planning,Hot or Cold Pack Recommendations To Nursing Amount of Assist Needed 1 Person Assist Discharge Recommendations PT Discharge Recommendations Home with Assistance, Outpatient PT Transportation Needs at Discharge Private Vehicle
--- NOTE | 2020-05-23 11:07 | CM.DPC ---
Addendum entered by Alyson Jones LPN 05/23/20 14:06: Pt was able to d/c home shortly after noon, in company of his . Original Note: DCP: continued: Ortho HAYDEN Keith was here and has updated the d/c order to today. She wishes pt to work with PT again now that his pain is better managed and then to home this afternoon. OUTPT PT planned.
--- NOTE | 2020-05-23 11:48 | PC.NURSE ---
Day shift: Peprwork signed and all questions answered. Pt's spouse had MD scripts filled already. Pt has all personal belongings. Delbert-vac removed per MD and Pt tolerated well. Pt taken to car in by DIRECTOR OF PURCHASING. Pt medicated for car ride and pain per MAR just prior to d/c. Left unit at approx 1205.
== END 2020-05-23 12:12 | disposition home or self-care (01) ==
LOC: OR 14:56 → AC 14:56
PROVIDERS: Admitting Provider Orthopaedic Surgery; PCP Family Medicine; Referring Provider Family Medicine; Visit Provider Orthopaedic Surgery
PROC: 0SRC0JZ Replacement of Right Knee Joint with Synthetic Substitute, Open Approach (ICD-10-PCS; CPT 27447; principal; 2020-05-21 07:45)
DX: M17.11 Unilateral primary osteoarthritis, right knee (principal); E66.9 Obesity, unspecified; I10 Essential (primary) hypertension; G47.33 Obstructive sleep apnea (adult) (pediatric)
CPT/HCPCS: 27447; 36415; 73560; 85014; 85018; 94760; 97110; 97116; 97161; 97530; C1776; G0378; C9290; J2250; J2704; J3010

== ENCOUNTER 2021-09-28 14:54 | Inpatient (IN) | payer OTHER, SELFPAY ==
[2020-05-21 11:23] VITALS: BMI 42.0
[2021-09-28] VITALS (8 sets, daily range): BP systolic 121–143; BP diastolic 46–62; PULSE 92–99; RESP 14–24; TEMP 36.8–38.3; O2SAT 92–97; BMI 43.7
[2021-09-28] MEDS: LACTATED RINGERS 1,000 ML 100 ML IV ×3 (17:36→23:40)
--- NOTE | 2021-09-28 19:06 | PM.HP.1 ---
History of Present Illness History of Present Illness Date Patient Seen: 09/28/21 Time Patient Seen: 19:06 Date of Onset of Symptoms: 09/27/21 Chief complaint: R INFECTED KNEE Narrative: Hannah had a right total knee arthroplasty approximately a year ago. He notes that he was doing well saw him about 3 months ago and his knee was functioning well with no problems. He says that he woke up in the middle of the night after having a normal day and going out to dinner with his and had incapacitating right knee pain. He notes it was swollen and he had difficulty weight-bearing on his right knee. He was quite concerned and called the office in the morning and then presented to the emergency room at [facility]. He was evaluated there noted to be febrile with a right knee effusion and an aspiration showed evidence of white blood cells, uric acid crystals and possible Gram-positive cocci. He did have an elevated white count and a low-grade fever. I was contacted and recommended that he be transferred for urgent irrigation and debridement and polyethylene exchange for possible periprosthetic infection. Patient History Medical History Diverticulitis Enlarged prostate HLD (hyperlipidemia) HTN (hypertension) IBS (irritable bowel syndrome) OBDULIA on CPAP Osteoarthritis Surgical History History of arthroscopy of left shoulder History of carpal tunnel release History of nasal surgery Hx of arthroscopy of left knee Hx of knee surgery (~1975) Family & Social History Social History: household members spouse Safety & Behavioral: Feels Safe in Current Yes Environment Been Physically Hurt or No Threatened By a Person Suicidal Ideation Description None Suicide Plan Description No Plan Tobacco & Substance use: Smoking Status Never smoker alcohol intake current alcohol intake frequency holiday/special occasion Substance Use Type does not use Meds Home Medications and Allergies Home Medications Medication Instructions Recorded Confirmed Type atorvastatin 10 mg tablet 10 mg PO BEDTIME 05/12/20 09/28/21 History ibuprofen 600 mg tablet 600 mg PO QD-BID PRN 05/12/20 09/28/21 History lisinopril 30 mg tablet 30 mg PO BEDTIME 05/12/20 09/28/21 History tamsulosin 0.4 mg capsule (Flomax) 0.8 mg PO BEDTIME 05/12/20 09/28/21 History multivitamin-ferrous 1 tab PO DAILY 05/21/20 09/28/21 History fumarate-folic acid 18 mg-400 mcg tablet (Multi Complete with Iron) cyclobenzaprine 10 mg tablet 5 mg PO DIRECTED PRN 09/28/21 09/28/21 History Allergies Allergy/AdvReac Type Severity Reaction Status Date / Time Penicillins Allergy Intermediate Rash Verified 05/21/20 06:44 terazosin Allergy Unknown Verified 05/21/20 06:44 cefuroxime AdvReac Intermediate Gastrointestinal Verified 05/21/20 06:45 Upset Review of Systems Review of Systems Narrative: He notes he has been otherwise feeling reasonably well. He denies a recent urinary tract infection, sinus infection or problems with his teeth. He specifically states that he is not a diabetic. 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 Exam Narrative Exam Narrative: HEENT is benign, his neck supple is alert he is oriented his lungs are clear cor regular rate rhythm abdomen soft and benign examination of his right lower extremity shows a well-healed incision, there is no evidence of erythema he has a fairly tense effusion and he has severe pain with attempted range of motion, there is no active drainage he does have a Band-Aid in place. Is neurologically intact distally his calf to soft distally. Objective Labs Labs: White blood cell count is reportedly 22,000, aspirate of the knee showed uric acid crystals and presumptive Gram-positive cocci as well as white blood cell, EKG shows a normal sinus rhythm, x-rays show a right total knee arthroplasty with acceptable overall alignment, no evidence of loosening, soft tissue swelling Assessment & Plan Assessment and plan (1) Knee effusion, right: Status: Acute (2) History of total knee arthroplasty: Status: Acute (3) Gout attack: Status: Acute Plan For Alan has an acute right knee effusion. He has a fever to 102 and an elevated white count. He has a history of a right total knee arthroplasty. Aspirate of his knee was positive for white blood cells, uric acid crystals, and Gram positive cocci. I have recommended irrigation and debridement and revision knee arthroplasty with polyethylene exchange. He was asymptomatic prior to yesterday and has had less than 24 hours of symptoms. His clinical examination is suggestive of a probable periprosthetic infection. His cultures are pending but I have recommended an urgent irrigation and debridement plan for polyethylene exchange. He will remain on IV antibiotics pending culture results. He may require a PICC line and more extended IV antibiotics. The procedure alternatives risks benefits and complications were discussed in detail. I specifically discussed the serious nature of the problem and the a difficulty with periprosthetic infections potentially requiring multiple operations are multiple interventions. He was seen about 3 months ago and was specifically noted to be doing very well at that point with no symptoms and did not have symptoms until less than 24 hours ago. does not have a known history of previous gout attacks. He is not a diabetic. Time Spent With Patient Critical Care time: I spent a total of [] minutes of critical care time on this patient's care today; this time is exclusive of procedural time. Quality VTE Deep Vein Thrombosis/Pulmonary Embolism Present on Admission: No
--- NOTE | 2021-09-28 19:18 | PM.OP.1 ---
Operative Date/Time/Diagnoses Date of procedure: 09/28/21 Time of procedure: 20:00 Pre-op diagnosis: Right knee acute effusion and possible periprosthetic joint infection with history of previous right total knee arthroplasty Post-op diagnosis: same Procedure & Clinicians Procedure: Excisional Irrigation and debridement right knee with polyethylene exchange. Same procedure as scheduled: Yes Indications: This is a 60-year-old with a history of a right total knee arthroplasty have developed an acute right knee effusion spontaneously and had fevers at home with an aspiration that showed white blood cells possible Gram-positive cocci and uric acid crystals. He had fevers to 102 with an elevated white count is brought to the operating room urgently for irrigation debridement of his right knee. His right total knee arthroplasty was functioning well prior to the acute episode Surgeon: Yazmin De La Cruz Space Planner: Kacie Shah Anesthesia Type: General Operative Notes Findings: Large cloudy right knee joint effusion, severe synovitis, components well fixed no evidence of loosening Closure Type: primary Specimen(s): other (Multiple deep cultures and PCR) Prosthetic devices, grafts, tissues, transplants, or devices: De La Cruz and Nephew Journey BCS 2 size 8 +10 tibial polyethylene component Applied: drain(s) Estimated Blood Loss (mL): 250 Blood products transfused: none Procedure in detail: The patient was seen in the pre-operative area, where the patient identified the right knee as the operative site and this was marked with my initials. The patient had pre-operative antibiotics held pending additional cultures, and was taken to the operating room and placed on the operative table in the supine position. After satisfactory anesthesia, a real time analyst out was performed. The right leg was encircled with a tourniquet about the proximal thigh, and the leg was prepared from the toes to the tourniquet with ChloroPrep in the usual fashion and draped through sterile drapes. The leg was elevated and exsanguinated with Eschmark bandage and the tourniquet inflated to [250] mmHg pressure. The knee was approached through an approximately 18 cm incision centered over the patella and carried into the knee through a medial parapatellar arthrotomy. Dissection was carried out through skin and subcutaneous tissues. Capsule was incised cultures were sent of the fluid as well as synovial specimens were taken and sent. An extensive synovectomy was performed and excisional debridement removing inflamed synovium was performed. The components were meticulously examined and carefully scrubbed with a combination of lap and a surgical scrub brush. The polyethylene insert was carefully removed. A posterior synovectomy was performed. There was severe synovitis and an extensive synovectomy was performed. Multiple cultures and PCR was sent. The knee was then meticulously irrigated with a pulsatile lavage, and dried with a sponge. The final tibial insert was placed. The knee was copiously irrigated and the tourniquet deflated. Hemostasis was obtained with the Bovie. A drain was placed and brought out superolaterally. The capsule was closed with interrupted monofilament absorbable suture. The subcutaneous layer was closed with barbed sutures, and the skin with a running 3-0 V-Lock suture and skin elysia. An addison dressing was applied and the patient was taken to recovery having tolerated the procedure well. Complications: none Post-operative Condition: stable Disposition: Acute Care Plan for aftercare: IV antibiotics and PICC line depending upon culture results. Anticipate weeks of IV antibiotics. Discharged home when safe and infections appears adequately controlled. Leave drain in for 2 days.
--- NOTE | 2021-09-28 20:05 | SUR.OPER ---
Supine on padded OR bed. Pillow under head, arms secured on padded armboards <90 degree abduction. Safety belt across torso. Non-operative leg secured with tape over blanket over lower leg. Operative leg secured in DeMayo/Gareth/Nathe positioner. Foam padded brace at thigh of operative leg.
[2021-09-28] MEDS: TRANEXAMIC ACID 1,000 MG VIAL 2000 MG INJ ×2 (21:00→21:39)
[2021-09-28] MEDS: CLINDAMYCIN 900 MG/50 ML PIGGYBACK 50 MG IV (21:39)
[2021-09-28] MEDS: TOBRAMYCIN 1.2 GM VIAL INTRA-ARTI (21:48)
[2021-09-28] MEDS: BUPIVACAINE LIPOSOME 266 MG/20 ML VIAL INJ (21:49)
[2021-09-28] MEDS: BUPIVACAINE 0.25% (PF) 60 ML, EPINEPHrine 0.3 MG INJ (21:50)
[2021-09-28] MEDS: VANCOMYCIN 1,000 MG/200 ML PIGGYBACK 200 MG IV (21:51)
[2021-09-28] MEDS: OXYCODONE IR 10 MG TABLET PO (23:58)
[2021-09-29] VITALS (8 sets, daily range): BP systolic 98–142; BP diastolic 49–73; PULSE 83–90; RESP 17–20; TEMP 36.2–37; O2SAT 93–96
[2021-09-29] MEDS: VANCOMYCIN 1,500 MG/300 ML PIGGYBACK 200 MG IV (01:09)
[2021-09-29] MEDS: HYDROMORPHONE 0.5 MG INJ 0.2 MG IV (01:20)
[2021-09-29 05:24] LABS: Hematocrit 40.1 % (41-53); Hemoglobin 13.6 g/dL (13.5-17.5)
[2021-09-29 05:43] LABS: Alanine Aminotransferase 65 IU/L (<50); Albumin 3.7 g/dL (3.5-5.0); Albumin Globulin Ratio 1.2 (1.0-2.8); Alkaline Phosphatase 65 U/L (38-126); Aspartate Aminotransferase 32 IU/L (17-59); BUN Creatinine Ratio 16.3 (6-22); Bilirubin Total 1.1 mg/dL (0.2-1.3); Blood Urea Nitrogen 16 mg/dL (9-20); Calcium 8.3 mg/dL (8.4-10.2); Carbon Dioxide 21 mmol/L (22-32); Chloride 103 mmol/L (98-107); Estimated Glomerular Filt Rate > 60.0 mL/min (>60); Globulin 3.1 g/dL (1.7-4.1); Glucose 133 mg/dL (80-110); HEMOLYSIS < 15 (0-50); Potassium 3.6 mmol/L (3.4-5.1); Sodium 135 mmol/L (137-145); Total Protein 6.8 g/dL (6.3-8.2)
--- NOTE | 2021-09-29 06:09 | PC.NURSE ---
Received a call from the lab at [facility] stating that both sets of the aerobic bottle were positive for cocci resembling staff, Dr. Savage notified. Awaiting fax of results.
[2021-09-29] MEDS: ACETAMINOPHEN 325 MG TABLET 650 MG PO ×3 (08:44→21:05)
[2021-09-29] MEDS: DOCUSATE 100 MG CAPSULE PO ×2 (08:44→21:05)
[2021-09-29] MEDS: MULTIVITAMIN 1 TABLET 1 TAB PO (08:44)
[2021-09-29] MEDS: ASPIRIN EC 81 MG TABLET PO ×2 (08:44→21:05)
[2021-09-29] MEDS: HYDROMORPHONE 2 MG TABLET PO (08:45)
--- NOTE | 2021-09-29 10:30 | CM.DANOTE ---
Addendum entered by Pauline Mancia R.N. 09/29/21 15:52: Faxed [facility] PICC line information, as it was inserted today. Addendum entered by Pauline Mancia R.N. 09/29/21 12:39: Faxed referral over to [facility], and updated Kenn about referral. He will review. Included face sheet, h&P, medication sheet, labs. Patient will be getting PICC line according to ortho notes. Original Note: DCP: Case received, EMR reviewed and met with patient. Introduced self and role. Was able to obtain information from patient regarding his baseline activity level prior to hospitalization. DCP assessment completed with information currently available. Patient is a 60 year old male who admitted yesterday afternoon to the care of the orthopedic team. PCP: Dr. Gu. Payer: confirmed: [facility]. Patient came to the hospital sent by [facility] secondary to having increased knee pain and swelling. According to notes, patient had right total knee arthroplasty about a year ago, and had seen orthopedics for a follow up 3 months ago. He had been functioning with no problems. Patient had awoken in the middle of the night with increased pain and swelling. He went to the ER at [facility], had a fever, and a right knee effusion. The aspiration of the knee noted white blood cells, as well as uric acid crystals. It was then recommended that patient come here for urgent irrigation and debridment. 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 If this is the case, he will get PICC line. Met with patient in his room. He is alert and oriented, resting in bed. 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 He resides in [facility] [place] [facility] with his spouse, Cassandra. Discussed with patient the possibility of him needing home ABO, and he is not opposed to this. P: DCP to continue to follow. Patient could need IV ABO, but is not yet determined. May send referral to [facility]. Pauline Mancia RN/Motorboat Mechanic Inboard Discharge Planning/Care Management CM Discharge Assessment Start: 09/29/21 10:29 Freq: Status: Active Protocol: Document 09/29/21 10:29 [email or web address] (Rec: 09/29/21 10:30 [id number]) Discharge Planning Assessment Assigned Lumber Press Operator Pauline Mancia RN/Motorboat Mechanic Inboard Advance Directives? No History Provided By Medical Record Household Members spouse Type of transporation used prior to Drives own vehicle admit Independent with ADL's Yes Is patient alert and oriented? Yes Caregiver for Another No Barriers to Discharge No Comment If patient does need home IV, he is prepared for this, and has Zhou which most likely would cover. Discharge Plan Home Transportation Arrangement Spouse Referrals Initiated Other Additional Comment May send referral to [facility], but ABO is not yet identified Whiteboard Updated in Patient Room with Yes name and ext. # of Lumber Press Operator Review Status In Process Next Review Type Continued Stay Review
--- NOTE | 2021-09-29 10:50 | PT.IIE ---
Current Diagnoses Gout, unspecified (09/28/21) Effusion, right knee (09/28/21) Infection and inflammatory reaction due to internal right knee prosthesis, initial encounter (09/28/21) Presence of unspecified artificial knee joint (09/28/21) Surgery Performed Operation Date: 09/28/21 18:15 Actual Procedures p Knee I&D & poly exchange(Right) - Yazmin De La Cruz MD Medical History (Last Reviewed 09/28/21 @ 20:12 by Bita Estrada RN) Diverticulitis Enlarged prostate HLD (hyperlipidemia) HTN (hypertension) IBS (irritable bowel syndrome) OBDULIA on CPAP Osteoarthritis Physical Therapy Inpatient Evaluation/Re-Eval M1 PT/OT-IP Prior Functional Status Start: 09/29/21 12:57 Freq: NEEDED Status: Active Protocol: Document 09/29/21 10:50 AB (Rec: 09/29/21 13:09 AB [id number]) Medical Review Prior Functional Status Medical History Reviewed Yes Communication able to make needs known Mobility and Gait pt stated that he is independent with all mobilities and ambulation without AD Social History Household Members spouse Living Arrangements House Number of Floors (Floors) One Floor Number of Stairs To Enter/Railing? 2 platform steps to enter without rails Home Environment Tub/Shower Home Equipment Front Wheel Walker,Straight Cane,Shower Seat without Backrest,Hand Held Shower,Grab Bars Near Toilet,Grab Bars In Shower M2 PT-IP Current Condition Start: 09/29/21 12:57 Freq: NEEDED Status: Active Protocol: Document 09/29/21 10:50 AB (Rec: 09/29/21 13:09 AB [email or web address]) Physical Therapy Current Condition Current Condition Evaluation Date 09/29/21 Treatment Diagnosis s/p R TKA revision and I&D; difficulty in walking Onset Date 09/28/21 M3 PT-IP Subjective Start: 09/29/21 12:57 Freq: NEEDED Status: Active Protocol: Document 09/29/21 10:50 AB (Rec: 09/29/21 13:09 AB [email or web address]) Subjective Physical Therapy Visit Type Type Initial Evaluation Visit Start Time 10:50 Visit Stop Time 11:15 Total Visit Minutes 25 Number of PACKING MACHINE TENDER Visits 0 Physical Therapy Visit Comments Patient Comments requesting to use the toilet Therapy Pain Assessment Pain When Pain Assessed At Rest Pain Present Pain Present Pain Reported Location Right Knee Intensity 4 Scale Used Numeric (0 - 10) Pain Management Techniques Distraction,Modification of Treatment,Re-positioning, Timing of Activity with Medications M4 PT-IP Mobility and Gait Start: 09/29/21 12:57 Freq: NEEDED Status: Active Protocol: Document 09/29/21 10:50 AB (Rec: 09/29/21 13:09 AB [id number]) PT-Bed Mobility Assessment Supine to Sit Supine to Sit Standby Assistance PT-Transfer Assessment Sit to and From Stand Sit to and from Stand Minimal Assistance,1 Person Assistance,Use of Upper Extremities Equipment Transfer Assistive Device Gait Belt,Front Wheeled Walker Orthotic/Prosthetic Devices or Brace: No Transfers Transfer Destination Toilet Transfer Technique ambulated using FWW Transfer Ability Level of Assist Moderate Assistance,1 Person Assistance,Use of Upper Extremities Comments Mobility Comments completed supine to sit SBA. able to sit on EOB SBA. completed sit to stand min A and ambulated to the toilet using FWW mod A and max cues. (+) R knee buckling and cued for quads contraction and required PT to stabilize knee. pt completed sit to stand from the toilet min A using grab bar and ambulated to the chair using FWW mod A and cues . pt agreed to sit up on chair. positioned on chair. call light and table placed within reach. Gait Assessment Gait Gait Assistance Required: Moderate Assistance Distance (Feet) 20 Able to Maintain Weight Bearing Status Yes During Gait Assistive Devices Assistive Device Gait Belt,Front Wheeled Walker Orthotic/Prosthetic Devices or Brace: No Gait Deviations General Gait Pattern Antalgic,Decreased Stride Length,Decreased Feet Clearance,Step-to Gait Factors Limiting Gait Function Factors Limiting Gait Function Decreased Activity Tolerance, Decreased Strength,Limited Range of Motion,Pain,Poor Balance,Poor Safety Awareness PT-Balance Assessment Sitting Balance and Reactions Static Sitting Balance Ability Good Dynamic Sitting Balance Ability Good Standing Balance and Reactions Static Standing Balance Ability Fair Dynamic Standing Balance Ability Poor Device Used FWW M5 PT-IP Objective Assessments Start: 09/29/21 12:57 Freq: NEEDED Status: Active Protocol: Document 09/29/21 10:50 AB (Rec: 09/29/21 13:09 AB [id number]) Orientation Orientation/Cognition Level of Alertness Alert Orientation Name,Place,Situation Safety Awareness Decreased Safety Awareness Memory Description No Deficits Noted Gross Range of Motion Lower Extremity ROM Assessment Right Impaired Impairments R knee flexion: ~ 40 deg R knee extension: 15 deg less to 0 Strength Lower Extremity Strength Assessment Right Impaired Hip 4-/5 Knee 3-/5 Sensation Assessment Sensation Gross Sensation WNL Muscle Tone Muscle Tone WNL Yes M6 PT-IP Treatment Start: 09/29/21 12:57 Freq: NEEDED Status: Active Protocol: Document 09/29/21 10:50 AB (Rec: 09/29/21 13:09 AB [id number]) Physical Therapy Treatment Education Education Provided Precautions,Weight Bearing Status,Safety M7 PT-IP Assessment and Plan Start: 09/29/21 12:57 Freq: NEEDED Status: Active Protocol: Document 09/29/21 10:50 AB (Rec: 09/29/21 13:09 AB [email or web address]) PT Summary Assessment and Plan Potential Rehabilitation Potential Good Status of Condition at Evaluation Evolving Summary Impairments Pain,ROM,Strength,Balance, Coordination,Sensation,Tone, Cognition,Bed Mobility, Transfers,Gait,Activity Tolerance Assessment Summary pt requiring mod A with mobility using FWW. will need further assessment to determine safe d/c plan. will conduct caregiver training when appropriate as well as stair climbing training. pt may require HHPT vs out pt PT depending on progress. Goals Bed Mobility Goal Standby Assistance Transfer Goal Standby Assistance,Front Wheeled Walker Gait Goal Standby Assistance,Front Wheel Walker Gait Distance 200 Other Goals up/down 2 platform steps using fWW SBA Days to Meet Goals 10 Frequency of Treatment Frequency Of Treatment Twice a Day Treatment Plan Physical Therapy Treatment Plan Bed Mobility Training,Transfer Training,Gait Training, Therapeutic Exercise,Balance Retraining,Post Op Education, Discharge Planning,Hot or Cold Pack,Neuromuscular Re-ed, Coordination Retraining,Manual Therapy Weight Bearing Status Weight Bearing Status Weight Bear as Tolerated Allowed Weight Bearing Amount (enter % RLE WBAT or #) (%) Recommendations To Nursing Amount of Assist Needed 1 Person Assist Discharge Recommendations PT Discharge Recommendations Home with 30/01 Assist Available,Home Health,SNF Rehab,Home vs SNF Transportation Needs at Discharge Private Vehicle,Wheelchair/ Cabulance
--- NOTE | 2021-09-29 10:56 | PM.PNPO.1 ---
Subjective Subjective Date Patient Seen: 09/29/21 Time Patient Seen: 15:52 Interval history: Resting comfortably in bed, eating and voiding without difficulty. Worked with PT today. Both pt and are comfortable with his going home with HH for IV antibiotic infusion and PT if needed; they have multiple people for support. Exam Vital Signs (past 8 hours): - 09/29/21 06:22 09/29/21 08:35 Temperature 98.4 F 97.6 F Pulse Rate 90 83 Respiratory Rate 17 20 Blood Pressure 142/63 H 120/53 L Pulse Oximetry 94 95 Oxygen Delivery Method Nasal Cannula Oxygen Flow Rate 0 Narrative Exam Narrative: 5/5 strength in hip flexors, quadriceps, hamstrings, DF, PF, EHL bilaterally. Sensation to light touch intact in BLE. Calves soft, compressible, nontender and without palpable cords or masses. Const General: cooperative and healthy appearing Orientation: alert, awake and oriented x3 Objective Labs Result Diagrams: 09/29/21 04:43 09/29/21 04:43 Labs: Laboratory Results - last 24 hr 09/29/21 09/29/21 04:43 04:43 Hgb 13.6 Hct 40.1 L Sodium 135 L Potassium 3.6 Chloride 103 Carbon Dioxide 21 L BUN 16 Creatinine 0.98 Estimated GFR > 60.0 BUN/Creatinine Ratio 16.3 Glucose 133 H Calcium 8.3 L Total Bilirubin 1.1 AST 32 ALT 65 H Alkaline Phosphatase 65 Total Protein 6.8 Albumin 3.7 Globulin 3.1 Albumin/Globulin Ratio 1.2 PFSH Medical History Diverticulitis Enlarged prostate HLD (hyperlipidemia) HTN (hypertension) IBS (irritable bowel syndrome) OBDULIA on CPAP Osteoarthritis Surgical History History of arthroscopy of left shoulder History of carpal tunnel release History of nasal surgery Hx of arthroscopy of left knee Hx of knee surgery (~1975) Social History household members: spouse Smoking Status: Never smoker alcohol intake: current Assessment & Plan Post-op Assessment and plan (1) Status post revision of total knee: Assessment and Plan narrative: POD# 1 s/p I&D of right knee and poly exchange. Mobilize w/ PT, multimodal pain control, ASA BID and SCDs for VTE prophylaxis. (2) History of total knee arthroplasty: (3) Knee effusion, right: (4) Bacteremia due to Gram-positive bacteria: Assessment and Plan narrative: IH blood cultures pending, but per Dr De La Cruz, blood cxs done at [facility] ED yesterday were positive for GPC. Dr Toya Pearson with infectious disease at [facility] has been contacted for help managing this patient. PICC line placed. Will leave on vancomycin pending cultures, sensitivities, and further ID recommendations. Postoperative Procedures: Procedures Operation Date: 09/28/21 18:15 Actual Procedure Side Surgeon p Knee I&D & poly exchange Right Yazmin De La Cruz MD Quality VTE Deep Vein Thrombosis/Pulmonary Embolism Present on Admission: No
[2021-09-29 11:19] LABS: White Blood Cell Count 20.8 X10^3/uL (4.5-11.0)
[2021-09-29 11:22] LABS: Add Manual Diff / Slide Review YES
--- NOTE | 2021-09-29 11:40 | DI.RAD.S_ITS ---
PROCEDURE: XR CHEST FOR PICC 1V INDICATIONS: line placement COMPARISON: None. FINDINGS: PICC was placed by the intravenous therapy team from the left side. Fluoroscopic spot film demonstrates the tip of PICC projecting to the area of mid SVC. IMPRESSION: Tip of PICC projects to the area of mid SVC. Dictated by: Kailey Gilman MD, PhD on 09/29/2021 at 11:57 Approved by: Kailey Gilman MD, PhD on 09/29/2021 at 11:58
[2021-09-29 11:42] LABS: Erythrocyte Sedimentation Rate 12 MM/HR (0-15)
[2021-09-29 11:44] LABS: Neutrophils Absolute Manual 17680 /uL (3000-5900); RBC Morphology Normal Morphology; Total Cells Counted 100
[2021-09-29] MEDS: OXYCODONE IR 5 MG TABLET PO (12:07)
--- NOTE | 2021-09-29 12:16 | DI.ECHO.S_ITS ---
[facility] +---------+ : : [address] : : : : [id number] : : : : Phone: [phone]+ Echocardiogram Report + + :Name: PACO MCLAUGHLIN Study Date: 09/29/2021 Height: 70 in : :[facility] ReadingLocation: Weight: 304 lb : : Gender: Male BSA: 2.5 m2 : :: 1960 Age: 60 yrs BP: 141/60 mmHg: :Reason For Study: ENDOCARDITIS : : Performed By: Meng Fields : :Referring: HECTOR SILVA A : + + Interpretation Summary The ejection fraction is estimated to be 60-65%. No significant valvular heart disease is noted. If endocarditis is clinically suspected a VLAD may be requested. Procedure: A two-dimensional transthoracic echocardiogram with color flow and Doppler was performed. The study quality was technically adequate. A contrast injection of Definity was performed to improve assessment of LV function. The patient was in normal sinus rhythm during the exam. Left Ventricle: The left ventricle is normal in size. There is normal left ventricular wall thickness. The ejection fraction is estimated to be 60-65%. There are no focal wall motion abnormalities. Right Ventricle: The right ventricle is normal in size and function. Atria: Both atria are normal in size. There is no Doppler evidence for an atrial septal defect. Mitral Valve: The mitral valve is normal in structure and function. There is trace mitral regurgitation. Aortic Valve: The aortic valve is trileaflet. The aortic valve opens well. No aortic regurgitation is present. Tricuspid Valve: The tricuspid valve is normal in structure and function. No tricuspid regurgitation. Pulmonary artery pressures cannot be estimated because of the lack of a measurable TR jet velocity but the IVC suggests a CVP of around 8 mmHg. Pulmonic Valve: The pulmonic valve leaflets are thin and pliable; valve motion is normal. There is no pulmonic valvular regurgitation. Great Vessels: The aortic root is normal size. The ascending aorta is at the upper limits of normal in size. The pulmonary artery is normal size. The IVC is dilated (diameter is greater than 2.1 cm) yet it collapses greater than 50% with a sniff. This suggests a right atrial pressure of 8 mm Hg. Pericardium/ Pleura There is no pericardial effusion. There is no pleural effusion. MMode/2D Measurements & Calculations LVIDd: 5.3 cm LVOT diam: 2.4 cm LVIDs: 3.2 cm Ao root diam: 3.6 cm FS: 38.6 % asc Aorta Diam: 3.5 cm EPSS: 0.65 cm IVSd: 1.0 cm LVPWd: 1.00 cm LV george. diameter/BSA (cm/m^2): 2.1 LV sys. diameter/BSA (cm/m^2): 1.3 LA A2 area: 21.0 cm2 RA long axis: 5.9 cm LA A4 area: 29.4 cm2 RA area: 20.6 cm2 LA length (vol): 6.3 cm RA vol: 61.0 ml LA vol: 82.7 ml RA : 24.4 ml/m2 LA vol index: 33.1 ml/m2 IVC diam: 2.9 cm TAPSE: 3.1 cm Doppler Measurements & Calculations Ao V2 max: 185.0 cm/sec LVOT Max Jaylen: 136.5 cm/sec Ao V2 mean: 151.5 cm/sec LV V1 max P.5 mmHg Ao max P.7 mmHg LV V1 VTI: 21.2 cm Ao mean P.6 mmHg MARSHALL(I,D): 3.2 cm2 Ao V2 VTI: 31.1 cm MARSHALL(V,D): 3.4 cm2 sev ratio: 0.68 MARSHALL indexed to BSA (cm^2/m^2): 1.3 MV E max jaylen: 65.9 cm/sec PA V2 max: 129.3 cm/sec MV A max jaylen: 91.1 cm/sec PA V2 mean: 93.8 cm/sec MV E/A: 0.72 PA mean P.9 mmHg Med Peak E' Jaylen: 6.9 cm/sec PA pr(Accel): 36.2 mmHg E/E' med: 9.6 Lat Peak E' Jaylen: 8.5 cm/sec E/E' lat: 7.8 E/e' average: 8.7 MV dec time: 0.20 sec SV(LVOT): 98.8 ml Reading Physician:04:49 PM
[2021-09-29 13:53] LABS: C-Reactive Protein Quant 34.9 mg/dL (<1.0)
--- NOTE | 2021-09-29 17:45 | PT.IPTN ---
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, initial encounter (09/28/21) Presence of unspecified artificial knee joint (09/28/21) Surgery Performed Operation Date: 09/28/21 18:15 Actual Procedures p Knee I&D & poly exchange(Right) - Yazmin De La Cruz MD Physical Therapy Treatment Note M2 PT-IP Current Condition Start: 09/29/21 12:57 Freq: NEEDED Status: Active Protocol: Document 09/29/21 17:12 MA (Rec: 09/29/21 18:27 MA [id number]) Physical Therapy Current Condition Current Condition Evaluation Date 09/29/21 Treatment Diagnosis s/p R TKA revision and I&D; difficulty in walking Onset Date 09/28/21 M3 PT-IP Subjective Start: 09/29/21 12:57 Freq: NEEDED Status: Active Protocol: Document 09/29/21 17:12 MA (Rec: 09/29/21 18:27 MA [id number]) Subjective Physical Therapy Visit Type Type Treatment Note Visit Start Time 17:12 Visit Stop Time 17:45 Total Visit Minutes 33 Number of EQUITY TRADER Visits 1 Physical Therapy Visit Comments Patient Comments Pt willing to work with PT and try step Therapy Pain Assessment Pain When Pain Assessed During Mobility Pain Present Pain Present Pain Reported Location Right Knee Intensity 6 Scale Used Numeric (0 - 10) Pain Management Techniques Apply Cold,Elevation,Re- positioning,Timing of Activity with Medications M4 PT-IP Mobility and Gait Start: 09/29/21 12:57 Freq: NEEDED Status: Active Protocol: Document 09/29/21 17:12 MA (Rec: 09/29/21 18:27 MA [id number]) PT-Bed Mobility Assessment Supine to Sit Supine to Sit Standby Assistance Scooting Scooting to Edge of Bed Standby Assistance PT-Transfer Assessment Sit to and From Stand Sit to and from Stand Minimal Assistance,1 Person Assistance,Use of Upper Extremities Equipment Transfer Assistive Device Gait Belt,Front Wheeled Walker Orthotic/Prosthetic Devices or Brace: No Transfers Transfer Destination Chair,Toilet Transfer Technique ambulated using FWW Transfer Ability Level of Assist Minimal Assistance,1 Person Assistance,Use of Upper Extremities Comments Mobility Comments Pt was able to complete bed mobility SBA. He requires min A for sit<>stand with cues for hand placement. Pt initially had no pain while supine in bed but had pain upon standing /10. Pt is able to ambulate Min A-CGA with gait belt and FWW once he finds his balance. Pt abulates 5 ft to platform set up in room where he is instructed to place walker on step and step up using LLE first. He then steps down with walker then RLE, relying heavily upon concepcion UEs due to pain. Pt requires Mod A x1 for step. When stepping up, pt's wound drain dislodges and pt requests using restroom while waiting for nurse. Pt ambulates 5 ft into bathroom where he is Min A for sit<> stand from the toilet with cues to use grab bar. Nurse reattaches drain and pt is able to ambulate CGA 5 ft to room chair with FWW and gait belt. Gait Assessment Gait Gait Assistance Required: Minimum Assistance,1 Person Assist Distance (Feet) 20 Able to Maintain Weight Bearing Status Yes During Gait Assistive Devices Assistive Device Gait Belt,Front Wheeled Walker Orthotic/Prosthetic Devices or Brace: No Gait Deviations General Gait Pattern Antalgic,Decreased Stride Length,Decreased Feet Clearance,Step-to Gait Factors Limiting Gait Function Factors Limiting Gait Function Decreased Activity Tolerance, Decreased Strength,Limited Range of Motion,Pain,Poor Balance,Poor Safety Awareness Stair Climbing Assessment Evaluation Level of Assist On Stairs Minimal Assistance,Moderate Assistance,1 Person Assistance Devices Stair Climbing Assistive Devices Front Wheel Walker Technique/Endurance Stair Climbing Direction Ascend and Descend Stair Climbing Technique Step to Step Number of Steps Climbed 1 Stair Climbing Set # Repetitions (reps) 1 Comments Stair Climbing Comments Pt is Min A for ascending stairs and Mod A for descending stairs. See mobility section for details PT-Balance Assessment Sitting Balance and Reactions Static Sitting Balance Ability Good Dynamic Sitting Balance Ability Good Standing Balance and Reactions Static Standing Balance Ability Fair Dynamic Standing Balance Ability Poor Device Used FWW M5 PT-IP Objective Assessments Start: 09/29/21 12:57 Freq: NEEDED Status: Active Protocol: Document 09/29/21 10:50 AB (Rec: 09/29/21 13:09 AB [id number]) Orientation Orientation/Cognition Level of Alertness Alert Orientation Name,Place,Situation Safety Awareness Decreased Safety Awareness Memory Description No Deficits Noted Gross Range of Motion Lower Extremity ROM Assessment Right Impaired Impairments R knee flexion: ~ 40 deg R knee extension: 15 deg less to 0 Strength Lower Extremity Strength Assessment Right Impaired Hip 4-/5 Knee 3-/5 Sensation Assessment Sensation Gross Sensation WNL Muscle Tone Muscle Tone WNL Yes M6 PT-IP Treatment Start: 09/29/21 12:57 Freq: NEEDED Status: Active Protocol: Document 09/29/21 17:12 MA (Rec: 09/29/21 18:27 MA [id number]) Physical Therapy Treatment Education Education Provided Precautions,Weight Bearing Status,Safety Other Treatments Other Treatment Performed Educated pt on proper way to step up on platform/stairs. Adjusted pt's personal walker for home use. M7 PT-IP Assessment and Plan Start: 09/29/21 12:57 Freq: NEEDED Status: Active Protocol: Document 09/29/21 17:12 MA (Rec: 09/29/21 18:27 MA [id number]) PT Summary Assessment and Plan Potential Rehabilitation Potential Good Status of Condition at Evaluation Evolving Summary Impairments Pain,ROM,Strength,Balance, Coordination,Sensation,Tone, Cognition,Bed Mobility, Transfers,Gait,Activity Tolerance Assessment Summary Pt is SBA for all bed mobility and Mary-CGA for ambulation with FWW and gait belt. He requires Min A and cues for standing from toilet due to its low height but is CGA when standing from EOB. Pt ambulates 15 feet in room today with rest break for toileting needs. He is able to perform single platform step using FWW and gait belt with cues for ascending with LLE first and descending with RLE first. During stair training, pt's drain begins leaking and nurse is called to reconnect drain. Adjusted pt's personal walker to proper height. Pt required cues to ensure he has both LEs inside of walker before sit>stand or will stand up with LLE on outside of walker due to pt's large build and narrow walker width. Pt will need to continue with stair training prior to d/c due to stair training interrupted with wound drain leaking. Pt may require HHPT depending on progress. Goals Bed Mobility Goal Standby Assistance Transfer Goal Standby Assistance,Front Wheeled Walker Gait Goal Standby Assistance,Front Wheel Walker Gait Distance 200 Other Goals up/down 2 platform steps using fWW SBA Days to Meet Goals 10 Frequency of Treatment Frequency Of Treatment Twice a Day Treatment Plan Physical Therapy Treatment Plan Bed Mobility Training,Transfer Training,Gait Training, Therapeutic Exercise,Balance Retraining,Post Op Education, Discharge Planning,Hot or Cold Pack,Neuromuscular Re-ed, Coordination Retraining,Manual Therapy Other Recommendations and Next Treatment 2 PF steps. Focus Weight Bearing Status Weight Bearing Status Weight Bear as Tolerated Allowed Weight Bearing Amount (enter % RLE WBAT or #) (%) Recommendations To Nursing Amount of Assist Needed Standby Assistance Discharge Recommendations PT Discharge Recommendations Home with 30/01 Assist Available,Home Health,SNF Rehab,Home vs SNF Transportation Needs at Discharge Private Vehicle,Wheelchair/ Cabulance
[2021-09-29] MEDS: VANCOMYCIN 2,000 MG/400 ML PIGGYBACK 200 MG IV (19:00)
[2021-09-29] MEDS: ATORVASTATIN 20 MG TABLET 10 MG PO (21:04)
[2021-09-29] MEDS: lisinopriL 10 MG TABLET 30 MG PO (21:05)
[2021-09-29] MEDS: TAMSULOSIN 0.4 MG CAPSULE 0.8 MG PO (21:05)
[2021-09-30 01:08] VITALS: BP 144/65; PULSE 85; RESP 18; TEMP 36.3; O2SAT 95
[2021-09-30] MEDS: OXYCODONE IR 5 MG TABLET PO ×2 (04:59→08:39)
[2021-09-30 05:11] VITALS: BP 143/68; PULSE 84; RESP 18; TEMP 36.6; O2SAT 94
[2021-09-30] MEDS: ACETAMINOPHEN 325 MG TABLET 650 MG PO ×3 (08:38→20:08)
[2021-09-30] MEDS: CEFAZOLIN 2 GM/20 ML SYRINGE IV ×3 (08:38→23:27)
[2021-09-30] MEDS: MULTIVITAMIN 1 TABLET 1 TAB PO (08:39)
[2021-09-30] MEDS: DOCUSATE 100 MG CAPSULE PO ×2 (08:39→20:08)
[2021-09-30] MEDS: ASPIRIN EC 81 MG TABLET PO ×2 (08:39→20:07)
[2021-09-30 09:01] LABS: Acinetobacter baumannii Not Detected (Not Detect); Candida albicans Not Detected (Not Detect); Candida glabrata Not Detected (Not Detect); Candida krusei Not Detected (Not Detect); Candida parapsilosis Not Detected (Not Detect); Candida tropicalis Not Detected (Not Detect); E. coli Not Detected (Not Detect); Enterobacter cloacae complex Not Detected (Not Detect); Enterobacteriaceae species Not Detected (Not Detect); Enterococcus species Not Detected (Not Detect); Haemophilus influenzae Not Detected (Not Detect); Listeria monocytogenes Not Detected (Not Detect); Methicillin-resistant gene Not Detected (Not Detect); Neisseria meningitidis Not Detected (Not Detect); Proteus species Not Detected (Not Detect); Pseudomonas aeruginosa Not Detected (Not Detect); Serratia marcescens Not Detected (Not Detect); Staphylococcus species Detected (Not Detect); Streptococcus agalactiae (Gr B Not Detected (Not Detect); Streptococcus pneumonia Not Detected (Not Detect); Streptococcus pyogenes (Gr A) Not Detected (Not Detect); Streptococcus species Not Detected (Not Detect)
[2021-09-30 09:11] LABS: Add Manual Diff / Slide Review NO; Basophils Absolute Auto 0 /uL (0-100); Basophils Percent Auto 0.2 % (0-2); Eosinophils Absolute Auto 100 /uL (0-450); Eosinophils Percent Auto 0.4 % (2-4); Hematocrit 39.8 % (41-53); Hemoglobin 13.4 g/dL (13.5-17.5); Lymphocytes Absolute Auto 900 /uL (1100-4500); Lymphocytes Percent Auto 6.2 % (25-40); Mean Corpuscular HGB Conc 33.7 % (30-36); Mean Corpuscular Hemoglobin 29.2 PG (26-34); Mean Corpuscular Volume 86.5 fL (80-100); Monocytes Absolute Auto 900 /uL (0-900); Monocytes Percent Auto 5.9 % (3-14); Neutrophils Absolute Auto 12700 /uL (1500-7000); Neutrophils Percent Auto 87.3 % (50-75); Platelet Count 247 X10^3/uL (150-400); Red Blood Cell Count 4.59 X10^6/uL (4.5-5.9); Red Cell Distribution Width 13.9 % (11.6-14.8); White Blood Cell Count 14.6 X10^3/uL (4.5-11.0)
[2021-09-30 10:00] VITALS: BP 147/60; PULSE 84; RESP 18; TEMP 36.2; O2SAT 93
--- NOTE | 2021-09-30 11:06 | P.PN_ITS ---
Subjective Subjective Date Patient Seen: 09/30/21 Time Patient Seen: 11:07 Interval history: Resting comfortably in bed. Ambulating, voiding, eating without difficulty. Good pain control. Exam Vital Signs (past 8 hours): - 09/30/21 05:11 09/30/21 10:00 Temperature 97.8 F 97.1 F L Pulse Rate 84 84 Respiratory Rate 18 18 Blood Pressure 143/68 H 147/60 H Pulse Oximetry 94 93 Oxygen Delivery Method Room Air Oxygen Flow Rate 0 Narrative Exam Narrative: 5/5 strength in hip flexors, quadriceps, hamstrings, DF, PF, EHL bilaterally. Sensation to light touch intact in BLE. Calves soft, compressible, nontender and without palpable cords or masses. Objective ECG Impression: Echocardiogram 09/29/2021: The ejection fraction is estimated to be 60-65%. No significant valvular heart disease is noted. If endocarditis is clinically suspected a VLAD may be requested. Labs Result Diagrams: 09/30/21 08:50 09/29/21 04:43 Labs: Laboratory Results - last 24 hr 09/29/21 09/29/21 09/29/21 04:43 04:43 14:00 WBC 20.8 H RBC Hgb Hct MCV MCH MCHC RDW Plt Count Neut % (Auto) Not Reportable Lymph % (Auto) Not Reportable [place] % (Auto) Not Reportable Eos % (Auto) Not Reportable Baso % (Auto) Not Reportable Neut # (Auto) Lymph # (Auto) [place] # (Auto) Eos # (Auto) Baso # (Auto) Total Counted 100 Seg Neutrophils % 81.0 H Band Neutrophils % 4.0 Lymphocytes % (Manual) 3.0 L Atypical Lymphs % 2.0 H Monocytes % (Manual) 10.0 Neutrophils # (Manual) 76591 H RBC Morphology Normal morphology ESR 12 C-Reactive Protein 34.9 H A. baumannii (PCR) Not detected Sayra albicans (PCR) Not detected C. glabrata (PCR) Not detected C. krusei (PCR) Not detected C. parapsilosis (PCR) Not detected C. tropicalis (PCR) Not detected Enterobacteriac sp PCR Not detected E. cloacae complex PCR Not detected Enterococcus sp PCR Not detected E. coli (PCR) Not detected H. influenzae (PCR) Not detected Klebsiella oxytoca PCR Not detected Klebsiella pneumoniae Not detected List. monocytogenes PCR Not detected N. meningitidis (PCR) Not detected Proteus species (PCR) Not detected Serratia marcescens PCR Not detected Staphylococcus sp PCR Detected H Staph aureus (PCR) Detected H mecA-Methicil Res Gene Not detected Streptococcus sp PCR Not detected Group A Strep (PCR) Not detected Strep agalactiae (PCR) Not detected Strep pneumoniae (PCR) Not detected P. aeruginosa (PCR) Not detected Oleg/B-Vanco Res Genes Not Reportable KPC-Carbap Res Gene PCR Not Reportable 09/30/21 08:50 WBC 14.6 H RBC 4.59 Hgb 13.4 L Hct 39.8 L MCV 86.5 MCH 29.2 MCHC 33.7 RDW 13.9 Plt Count 247 Neut % (Auto) 87.3 H Lymph % (Auto) 6.2 L [place] % (Auto) 5.9 Eos % (Auto) 0.4 L Baso % (Auto) 0.2 Neut # (Auto) 27179 H Lymph # (Auto) 900 L [place] # (Auto) 900 Eos # (Auto) 100 Baso # (Auto) 0 Total Counted Seg Neutrophils % Band Neutrophils % Lymphocytes % (Manual) Atypical Lymphs % Monocytes % (Manual) Neutrophils # (Manual) RBC Morphology ESR C-Reactive Protein A. baumannii (PCR) Sayra albicans (PCR) C. glabrata (PCR) C. krusei (PCR) C. parapsilosis (PCR) C. tropicalis (PCR) Enterobacteriac sp PCR E. cloacae complex PCR Enterococcus sp PCR E. coli (PCR) H. influenzae (PCR) Klebsiella oxytoca PCR Klebsiella pneumoniae List. monocytogenes PCR N. meningitidis (PCR) Proteus species (PCR) Serratia marcescens PCR Staphylococcus sp PCR Staph aureus (PCR) mecA-Methicil Res Gene Streptococcus sp PCR Group A Strep (PCR) Strep agalactiae (PCR) Strep pneumoniae (PCR) P. aeruginosa (PCR) Oleg/B-Vanco Res Genes KPC-Carbap Res Gene PCR [facility] Medical History Diverticulitis Enlarged prostate HLD (hyperlipidemia) HTN (hypertension) IBS (irritable bowel syndrome) OBDULIA on CPAP Osteoarthritis Surgical History History of arthroscopy of left shoulder History of carpal tunnel release History of nasal surgery Hx of arthroscopy of left knee Hx of knee surgery (~1975) Social History household members: spouse Smoking Status: Never smoker alcohol intake: current Assessment & Plan Post-op Assessment and plan (1) Status post revision of total knee: Assessment and Plan narrative: POD# 2 s/p I&D and poly exchange right knee. Per Dr De La Cruz, may need removal of all hardware and antibiotic spacer; she will discuss further with patient tomorrow. (2) Bacteremia due to Gram-positive bacteria: Assessment and Plan narrative: Continuing vancomycin, ancef added. Afebrile, WBC decreasing. Echo negative for valvular disease, low suspicion for endocarditis at this point. Postoperative Procedures: Procedures Operation Date: 09/28/21 18:15 Actual Procedure Side Surgeon p Knee I&D & poly exchange Right Yazmin De La Cruz MD Quality VTE Deep Vein Thrombosis/Pulmonary Embolism Present on Admission: No
--- NOTE | 2021-09-30 11:59 | PT.IPTN ---
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, initial encounter (09/28/21) Presence of unspecified artificial knee joint (09/28/21) Surgery Performed Operation Date: 09/28/21 18:15 Actual Procedures p Knee I&D & poly exchange(Right) - Yazmin De La Cruz MD Physical Therapy Treatment Note M2 PT-IP Current Condition Start: 09/29/21 12:57 Freq: NEEDED Status: Active Protocol: Document 09/29/21 17:12 MA (Rec: 09/29/21 18:27 MA [id number]) Physical Therapy Current Condition Current Condition Evaluation Date 09/29/21 Treatment Diagnosis s/p R TKA revision and I&D; difficulty in walking Onset Date 09/28/21 M3 PT-IP Subjective Start: 09/29/21 12:57 Freq: NEEDED Status: Active Protocol: Document 09/30/21 11:43 KS (Rec: 09/30/21 14:09 KS [id number]) Subjective Physical Therapy Visit Type Type Treatment Note Visit Start Time 11:43 Visit Stop Time 11:59 Total Visit Minutes 16 Number of SHARED SERVICES AND OUTSOURCING MANAGER Visits 2 Physical Therapy Visit Comments Patient Comments Pt agreeable to working w/ therapy. Therapy Pain Assessment Pain When Pain Assessed During Mobility Pain Present Pain Present Pain Reported M4 PT-IP Mobility and Gait Start: 09/29/21 12:57 Freq: NEEDED Status: Active Protocol: Document 09/30/21 11:43 KS (Rec: 09/30/21 14:09 KS [id number]) PT-Bed Mobility Assessment Supine to Sit Supine to Sit Standby Assistance,Head of Bed Elevated Scooting Scooting to Edge of Bed Standby Assistance PT-Transfer Assessment Sit to and From Stand Sit to and from Stand Contact Guard Assistance,1 Person Assistance,Use of Upper Extremities Equipment Transfer Assistive Device Gait Belt,Front Wheeled Walker Orthotic/Prosthetic Devices or Brace: No Transfers Transfer Destination Chair Transfer Technique ambulated using FWW Transfer Ability Level of Assist Contact Guard Assistance,1 Person Assistance,Use of Upper Extremities Comments Mobility Comments Pt in bed upon arrival and agreeable to ambulate around room. SBA for sup<>sit w/ HOB elevated and SBA for scooting EOB. Pt able to sit<>stand w/ FWW CGA. He then ambulated ~50 ft around room w/ FWW CGA before transferring to chair. Pt performed bilateral ankle pumps, LAQs, heel slides, and glute sets. Pt left in chair w / all needs in reach. Gait Assessment Gait Gait Assistance Required: Contact Guard Assist,1 Person Assist Distance (Feet) 50 Able to Maintain Weight Bearing Status Yes During Gait Assistive Devices Assistive Device Gait Belt,Front Wheeled Walker Orthotic/Prosthetic Devices or Brace: No Gait Deviations General Gait Pattern Antalgic,Decreased Stride Length,Decreased Feet Clearance,Step-to Gait Factors Limiting Gait Function Factors Limiting Gait Function Decreased Activity Tolerance, Decreased Strength,Limited Range of Motion,Pain,Poor Balance,Poor Safety Awareness Stair Climbing Assessment Comments Stair Climbing Comments Plan to assess this PM. PT-Balance Assessment Sitting Balance and Reactions Static Sitting Balance Ability Good Dynamic Sitting Balance Ability Good Standing Balance and Reactions Static Standing Balance Ability Good Dynamic Standing Balance Ability Fair Device Used FWW M5 PT-IP Objective Assessments Start: 09/29/21 12:57 Freq: NEEDED Status: Active Protocol: Document 09/29/21 10:50 AB (Rec: 09/29/21 13:09 AB [id number]) Orientation Orientation/Cognition Level of Alertness Alert Orientation Name,Place,Situation Safety Awareness Decreased Safety Awareness Memory Description No Deficits Noted Gross Range of Motion Lower Extremity ROM Assessment Right Impaired Impairments R knee flexion: ~ 40 deg R knee extension: 15 deg less to 0 Strength Lower Extremity Strength Assessment Right Impaired Hip 4-/5 Knee 3-/5 Sensation Assessment Sensation Gross Sensation WNL Muscle Tone Muscle Tone WNL Yes M6 PT-IP Treatment Start: 09/29/21 12:57 Freq: NEEDED Status: Active Protocol: Document 09/30/21 11:43 KS (Rec: 09/30/21 14:09 KS [id number]) Physical Therapy Treatment Exercises Exercises Ankle Pumps,Gluteal Sets,Heel Slides,Elbow Flexion/Extension Education Education Provided Precautions,Weight Bearing Status,Safety M7 PT-IP Assessment and Plan Start: 09/29/21 12:57 Freq: NEEDED Status: Active Protocol: Document 09/30/21 11:43 KS (Rec: 09/30/21 14:09 KS [id number]) PT Summary Assessment and Plan Potential Rehabilitation Potential Good Status of Condition at Evaluation Evolving Summary Impairments Pain,ROM,Strength,Balance, Coordination,Sensation,Tone, Cognition,Bed Mobility, Transfers,Gait,Activity Tolerance Assessment Summary Pt SBA for bed mobility, CGA for transfers and ambulation w / FWW. Able to tolerate 50 ft ambulation today and perform LE exercises to improve strength and ROM. Plan to reassess stairs this PM. Pt may require HHPT depending on progress. Goals Bed Mobility Goal Standby Assistance Transfer Goal Standby Assistance,Front Wheeled Walker Gait Goal Standby Assistance,Front Wheel Walker Gait Distance 200 Other Goals up/down 2 platform steps using fWW SBA Days to Meet Goals 10 Frequency of Treatment Frequency Of Treatment Twice a Day Treatment Plan Physical Therapy Treatment Plan Bed Mobility Training,Transfer Training,Gait Training, Therapeutic Exercise,Balance Retraining,Post Op Education, Discharge Planning,Hot or Cold Pack,Neuromuscular Re-ed, Coordination Retraining,Manual Therapy Other Recommendations and Next Treatment 2 PF steps. Focus Weight Bearing Status Weight Bearing Status Weight Bear as Tolerated Allowed Weight Bearing Amount (enter % RLE WBAT or #) (%) Recommendations To Nursing Amount of Assist Needed Standby Assistance Discharge Recommendations PT Discharge Recommendations Home with 30/01 Assist Available,Home Health,SNF Rehab,Home vs SNF Transportation Needs at Discharge Private Vehicle,Wheelchair/ Cabulance
[2021-09-30 12:14] LABS: Alanine Aminotransferase 58 IU/L (<50); Albumin 3.7 g/dL (3.5-5.0); Albumin Globulin Ratio 1.1 (1.0-2.8); Alkaline Phosphatase 78 U/L (38-126); Aspartate Aminotransferase 42 IU/L (17-59); BUN Creatinine Ratio 17.5 (6-22); Bilirubin Total 1.2 mg/dL (0.2-1.3); Blood Urea Nitrogen 14 mg/dL (9-20); Calcium 9.2 mg/dL (8.4-10.2); Carbon Dioxide 24 mmol/L (22-32); Chloride 101 mmol/L (98-107); Estimated Glomerular Filt Rate > 60.0 mL/min (>60); Globulin 3.4 g/dL (1.7-4.1); Glucose 128 mg/dL (80-110); HEMOLYSIS < 15 (0-50); Potassium 3.6 mmol/L (3.4-5.1); Sodium 136 mmol/L (137-145); Total Protein 7.1 g/dL (6.3-8.2)
[2021-09-30 12:41] LABS: C-Reactive Protein Quant 39.4 mg/dL (<1.0)
--- NOTE | 2021-09-30 13:32 | CM.DPC ---
Discharge Plan Cont: COLLECTION AGENT spoke with Kenn at [facility] who is requesting information as to which medication/drug patient will require as well as what doctor will be following patient after discharge from hospital. Kenn stated he will need the PICC insertion record as well. Kenn is hopeful they can open service with patient over weekend depending on their staffing. Provider was not able to answer these questions as cultures were still pending. Patient is not yet medically stable for discharge at this time. Alexi LAMBERT
[2021-09-30] MEDS: VANCOMYCIN 2,000 MG/400 ML PIGGYBACK 200 MG IV (13:50)
--- NOTE | 2021-09-30 16:30 | PT.IPTN ---
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, initial encounter (09/28/21) Presence of unspecified artificial knee joint (09/28/21) Surgery Performed Operation Date: 09/28/21 18:15 Actual Procedures p Knee I&D & poly exchange(Right) - Yazmin De La Cruz MD Physical Therapy Treatment Note M2 PT-IP Current Condition Start: 09/29/21 12:57 Freq: NEEDED Status: Active Protocol: Document 09/29/21 17:12 MA (Rec: 09/29/21 18:27 MA [id number]) Physical Therapy Current Condition Current Condition Evaluation Date 09/29/21 Treatment Diagnosis s/p R TKA revision and I&D; difficulty in walking Onset Date 09/28/21 M3 PT-IP Subjective Start: 09/29/21 12:57 Freq: NEEDED Status: Active Protocol: Document 09/30/21 16:05 KS (Rec: 09/30/21 16:58 KS [id number]) Subjective Physical Therapy Visit Type Type Treatment Note Visit Start Time 16:05 Visit Stop Time 16:30 Total Visit Minutes 25 Number of MACHINE SORTER Visits 3 Physical Therapy Visit Comments Patient Comments Pt agreeable to working w/ therapy. Therapy Pain Assessment Pain When Pain Assessed During Mobility Pain Present Pain Present Pain Reported M4 PT-IP Mobility and Gait Start: 09/29/21 12:57 Freq: NEEDED Status: Active Protocol: Document 09/30/21 16:05 KS (Rec: 09/30/21 16:58 KS [id number]) PT-Bed Mobility Assessment Supine to Sit Supine to Sit Standby Assistance,Head of Bed Elevated Sit to Supine Sit to Supine Contact Guard Assistance Scooting Scooting to Edge of Bed Standby Assistance PT-Transfer Assessment Sit to and From Stand Sit to and from Stand Contact Guard Assistance,1 Person Assistance,Use of Upper Extremities Equipment Transfer Assistive Device Gait Belt,Front Wheeled Walker Orthotic/Prosthetic Devices or Brace: No Transfers Transfer Destination Chair Transfer Technique ambulated using FWW Transfer Ability Level of Assist Contact Guard Assistance,1 Person Assistance,Use of Upper Extremities Comments Mobility Comments Pt in bed upon arrival and agreeable to ambulation. SBA for sup<>sit and scooting EOB. CGA for sit<>stand w/ FWW and ambulated ~70 ft around room before going to bathroom and having bowel movement independently. Pt ambulated to sink to wash hands and then requested to get back in bed. CGA for sit<>sup. Pt left in bed w/ all needs in reach. Gait Assessment Gait Gait Assistance Required: Contact Guard Assist,1 Person Assist Distance (Feet) 80 Able to Maintain Weight Bearing Status Yes During Gait Assistive Devices Assistive Device Gait Belt,Front Wheeled Walker Orthotic/Prosthetic Devices or Brace: No Gait Deviations General Gait Pattern Antalgic,Decreased Stride Length,Decreased Feet Clearance,Step-to Gait Factors Limiting Gait Function Factors Limiting Gait Function Decreased Activity Tolerance, Decreased Strength,Limited Range of Motion,Pain,Poor Balance,Poor Safety Awareness Comments Gait Comments Pt w/ low toelrance for ambulation due to weakness and pain but able to ambulate 80 ft w/ FWW CGA. Stair Climbing Assessment Comments Stair Climbing Comments Pt agreeable to complete tomorrow. PT-Balance Assessment Sitting Balance and Reactions Static Sitting Balance Ability Good Dynamic Sitting Balance Ability Good Standing Balance and Reactions Static Standing Balance Ability Good Dynamic Standing Balance Ability Fair Device Used FWW M5 PT-IP Objective Assessments Start: 09/29/21 12:57 Freq: NEEDED Status: Active Protocol: Document 09/29/21 10:50 AB (Rec: 09/29/21 13:09 AB [id number]) Orientation Orientation/Cognition Level of Alertness Alert Orientation Name,Place,Situation Safety Awareness Decreased Safety Awareness Memory Description No Deficits Noted Gross Range of Motion Lower Extremity ROM Assessment Right Impaired Impairments R knee flexion: ~ 40 deg R knee extension: 15 deg less to 0 Strength Lower Extremity Strength Assessment Right Impaired Hip 4-/5 Knee 3-/5 Sensation Assessment Sensation Gross Sensation WNL Muscle Tone Muscle Tone WNL Yes M6 PT-IP Treatment Start: 09/29/21 12:57 Freq: NEEDED Status: Active Protocol: Document 09/30/21 16:05 KS (Rec: 09/30/21 16:58 KS [id number]) Physical Therapy Treatment Education Education Provided Precautions,Weight Bearing Status,Safety M7 PT-IP Assessment and Plan Start: 09/29/21 12:57 Freq: NEEDED Status: Active Protocol: Document 09/30/21 16:05 KS (Rec: 09/30/21 16:58 KS [id number]) PT Summary Assessment and Plan Potential Rehabilitation Potential Good Status of Condition at Evaluation Evolving Summary Impairments Pain,ROM,Strength,Balance, Coordination,Sensation,Tone, Cognition,Bed Mobility, Transfers,Gait,Activity Tolerance Assessment Summary Pt w/ slightly more tolerance for ambulation this PM, but remains limited by pain and weakness. SBA for bed mobility , CGA for transfers and ambulation. Pt agreeable to stair training tomorrow. Pt may require HHPT depending on progress. Goals Bed Mobility Goal Standby Assistance Transfer Goal Standby Assistance,Front Wheeled Walker Gait Goal Standby Assistance,Front Wheel Walker Gait Distance 200 Other Goals up/down 2 platform steps using fWW SBA Days to Meet Goals 10 Frequency of Treatment Frequency Of Treatment Twice a Day Treatment Plan Physical Therapy Treatment Plan Bed Mobility Training,Transfer Training,Gait Training, Therapeutic Exercise,Balance Retraining,Post Op Education, Discharge Planning,Hot or Cold Pack,Neuromuscular Re-ed, Coordination Retraining,Manual Therapy Other Recommendations and Next Treatment 2 PF steps. Focus Weight Bearing Status Weight Bearing Status Weight Bear as Tolerated Allowed Weight Bearing Amount (enter % RLE WBAT or #) (%) Recommendations To Nursing Amount of Assist Needed Standby Assistance Discharge Recommendations PT Discharge Recommendations Home with / Assist Available,Home Health,SNF Rehab,Home vs SNF Transportation Needs at Discharge Private Vehicle,Wheelchair/ Cabulance
[2021-09-30 18:00] VITALS: BP 113/62; PULSE 84; RESP 16; TEMP 36.2; O2SAT 93
[2021-09-30] MEDS: lisinopriL 10 MG TABLET 30 MG PO (20:07)
[2021-09-30] MEDS: ATORVASTATIN 20 MG TABLET 10 MG PO (20:07)
[2021-09-30] MEDS: TAMSULOSIN 0.4 MG CAPSULE 0.8 MG PO (20:07)
[2021-09-30] MEDS: SODIUM CHLORIDE 0.9% FLUSH 10 ML IV (20:08)
[2021-09-30 20:25] VITALS: BP 111/55; PULSE 79; RESP 18; TEMP 36.9; O2SAT 100
[2021-09-30 23:30] VITALS: BP 147/68; PULSE 78; RESP 14; TEMP 36; O2SAT 94
[2021-10-01] VITALS (14 sets, daily range): BP systolic 120–178; BP diastolic 62–92; PULSE 75–85; RESP 11–18; TEMP 36–36.9; O2SAT 94–98; BMI 43.0
[2021-10-01] MEDS: OXYCODONE IR 5 MG TABLET PO ×2 (00:39→22:43)
[2021-10-01 06:31] LABS: Add Manual Diff / Slide Review NO; Basophils Absolute Auto 0 /uL (0-100); Basophils Percent Auto 0.4 % (0-2); Eosinophils Absolute Auto 100 /uL (0-450); Hematocrit 39.2 % (41-53); Hemoglobin 13.4 g/dL (13.5-17.5); Lymphocytes Absolute Auto 900 /uL (1100-4500); Lymphocytes Percent Auto 7.6 % (25-40); Mean Corpuscular Hemoglobin 29.4 PG (26-34); Mean Corpuscular Volume 86.4 fL (80-100); Monocytes Absolute Auto 1100 /uL (0-900); Monocytes Percent Auto 8.9 % (3-14); Neutrophils Absolute Auto 10100 /uL (1500-7000); Neutrophils Percent Auto 82.1 % (50-75); Platelet Count 271 X10^3/uL (150-400); Red Blood Cell Count 4.54 X10^6/uL (4.5-5.9); Red Cell Distribution Width 13.8 % (11.6-14.8); White Blood Cell Count 12.3 X10^3/uL (4.5-11.0)
[2021-10-01 06:37] LABS: Alanine Aminotransferase 54 IU/L (<50); Albumin 3.5 g/dL (3.5-5.0); Alkaline Phosphatase 78 U/L (38-126); Aspartate Aminotransferase 37 IU/L (17-59); BUN Creatinine Ratio 21.2 (6-22); Bilirubin Total 0.8 mg/dL (0.2-1.3); Blood Urea Nitrogen 14 mg/dL (9-20); Calcium 8.8 mg/dL (8.4-10.2); Carbon Dioxide 24 mmol/L (22-32); Chloride 103 mmol/L (98-107); Estimated Glomerular Filt Rate > 60.0 mL/min (>60); Globulin 3.4 g/dL (1.7-4.1); Glucose 128 mg/dL (80-110); HEMOLYSIS < 15 (0-50); Potassium 3.6 mmol/L (3.4-5.1); Sodium 136 mmol/L (137-145); Total Protein 6.9 g/dL (6.3-8.2)
[2021-10-01] MEDS: VANCOMYCIN 2,000 MG/400 ML PIGGYBACK 200 MG IV (06:40)
[2021-10-01 06:55] LABS: C-Reactive Protein Quant 24.7 mg/dL (<1.0)
[2021-10-01 06:59] LABS: Vancomycin Trough < 5.0 ug/mL (10-20)
--- NOTE | 2021-10-01 07:35 | P.PN_ITS ---
Subjective Subjective Date Patient Seen: 10/01/21 Time Patient Seen: 07:35 Interval history: The patient states he is feeling better this morning, but still complaining of night sweats. He denies fevers or chills. Exam Vital Signs (past 8 hours): - 10/01/21 05:10 Temperature 97.9 F Pulse Rate 80 Respiratory Rate 16 Blood Pressure 133/75 Pulse Oximetry 94 Oxygen Delivery Method Room Air Oxygen Flow Rate 0 Narrative Exam Narrative: Pleasant 60year old male, resting comfortably in bed. Dressing is C/D/I. Bilateral lower extremity: motor function is grossly intact, sensation is grossly intact to light touch, calves are soft and nonTTP. Objective Labs Result Diagrams: 10/01/21 06:07 10/01/21 06:07 Labs: Laboratory Results - last 24 hr 09/29/21 09/30/21 09/30/21 14:00 08:50 08:50 WBC 14.6 H RBC 4.59 Hgb 13.4 L Hct 39.8 L MCV 86.5 MCH 29.2 MCHC 33.7 RDW 13.9 Plt Count 247 Neut % (Auto) 87.3 H Lymph % (Auto) 6.2 L [place] % (Auto) 5.9 Eos % (Auto) 0.4 L Baso % (Auto) 0.2 Neut # (Auto) 10680 H Lymph # (Auto) 900 L [place] # (Auto) 900 Eos # (Auto) 100 Baso # (Auto) 0 Sodium 136 L Potassium 3.6 Chloride 101 Carbon Dioxide 24 BUN 14 Creatinine 0.80 Estimated GFR > 60.0 BUN/Creatinine Ratio 17.5 Glucose 128 H Calcium 9.2 Total Bilirubin 1.2 AST 42 ALT 58 H Alkaline Phosphatase 78 C-Reactive Protein 39.4 H Total Protein 7.1 Albumin 3.7 Globulin 3.4 Albumin/Globulin Ratio 1.1 Vancomycin Trough A. baumannii (PCR) Not detected Sayra albicans (PCR) Not detected C. glabrata (PCR) Not detected C. krusei (PCR) Not detected C. parapsilosis (PCR) Not detected C. tropicalis (PCR) Not detected Enterobacteriac sp PCR Not detected E. cloacae complex PCR Not detected Enterococcus sp PCR Not detected E. coli (PCR) Not detected H. influenzae (PCR) Not detected Klebsiella oxytoca PCR Not detected Klebsiella pneumoniae Not detected List. monocytogenes PCR Not detected N. meningitidis (PCR) Not detected Proteus species (PCR) Not detected Serratia marcescens PCR Not detected Staphylococcus sp PCR Detected H Staph aureus (PCR) Detected H mecA-Methicil Res Gene Not detected Streptococcus sp PCR Not detected Group A Strep (PCR) Not detected Strep agalactiae (PCR) Not detected Strep pneumoniae (PCR) Not detected P. aeruginosa (PCR) Not detected Oleg/B-Vanco Res Genes Not Reportable KPC-Carbap Res Gene PCR Not Reportable 10/01/21 10/01/21 10/01/21 06:07 06:07 06:07 WBC 12.3 H RBC 4.54 Hgb 13.4 L Hct 39.2 L MCV 86.4 MCH 29.4 MCHC 34.0 RDW 13.8 Plt Count 271 Neut % (Auto) 82.1 H Lymph % (Auto) 7.6 L [place] % (Auto) 8.9 Eos % (Auto) 1.0 L Baso % (Auto) 0.4 Neut # (Auto) 85246 H Lymph # (Auto) 900 L [place] # (Auto) 1100 H Eos # (Auto) 100 Baso # (Auto) 0 Sodium 136 L Potassium 3.6 Chloride 103 Carbon Dioxide 24 BUN 14 Creatinine 0.66 Estimated GFR > 60.0 BUN/Creatinine Ratio 21.2 Glucose 128 H Calcium 8.8 Total Bilirubin 0.8 AST 37 ALT 54 H Alkaline Phosphatase 78 C-Reactive Protein 24.7 H Total Protein 6.9 Albumin 3.5 Globulin 3.4 Albumin/Globulin Ratio 1.0 Vancomycin Trough < 5.0 L A. baumannii (PCR) Sayra albicans (PCR) C. glabrata (PCR) C. krusei (PCR) C. parapsilosis (PCR) C. tropicalis (PCR) Enterobacteriac sp PCR E. cloacae complex PCR Enterococcus sp PCR E. coli (PCR) H. influenzae (PCR) Klebsiella oxytoca PCR Klebsiella pneumoniae List. monocytogenes PCR N. meningitidis (PCR) Proteus species (PCR) Serratia marcescens PCR Staphylococcus sp PCR Staph aureus (PCR) mecA-Methicil Res Gene Streptococcus sp PCR Group A Strep (PCR) Strep agalactiae (PCR) Strep pneumoniae (PCR) P. aeruginosa (PCR) Oleg/B-Vanco Res Genes KPC-Carbap Res Gene PCR [facility] Medical History Diverticulitis Enlarged prostate HLD (hyperlipidemia) HTN (hypertension) IBS (irritable bowel syndrome) OBDULIA on CPAP Osteoarthritis Surgical History History of arthroscopy of left shoulder History of carpal tunnel release History of nasal surgery Hx of arthroscopy of left knee Hx of knee surgery (~1975) Social History household members: spouse Smoking Status: Never smoker alcohol intake: current Assessment & Plan Post-op Postoperative Procedures: Procedures Operation Date: 09/28/21 18:15 Actual Procedure Side Surgeon p Knee I&D & poly exchange Right Yazmin De La Cruz MD Postoperative day: 3 Postoperative status narrative: -status post right knee I&D and poly exchange Postoperative plan narrative: -Per Dr. De La Cruz, patient is likely returning to the OR this afternoon for another I&D or possible explant -NPO -WBC is trending downwards, but still elevated at 12.3. CRP is elevated at 24 -Continue vancomycin and ancef Quality VTE Deep Vein Thrombosis/Pulmonary Embolism Present on Admission: No
[2021-10-01] MEDS: VANCOMYCIN TROUGH 1 REQUEST MISC (08:52)
[2021-10-01] MEDS: ACETAMINOPHEN 325 MG TABLET 650 MG PO ×2 (08:56→22:39)
[2021-10-01] MEDS: CEFAZOLIN 2 GM/20 ML SYRINGE IV ×4 (08:56→23:31)
[2021-10-01] MEDS: MULTIVITAMIN 1 TABLET 1 TAB PO (08:56)
[2021-10-01] MEDS: ASPIRIN EC 81 MG TABLET PO ×2 (08:56→22:38)
[2021-10-01] MEDS: SODIUM CHLORIDE 0.9% FLUSH 10 ML IV ×2 (08:57→22:40)
[2021-10-01] MEDS: VANCOMYCIN PEAK 1 REQUEST MISC (10:15)
--- NOTE | 2021-10-01 10:58 | CM.DPC ---
DCP Cont: Per Ortho PA, pt now likely to head back to the OR this afternoon for further I&D vs possible explant. SW called Kenn at [facility] and updated that timeline for d/c is still undetermined and unclear if pt will still need Vanco and Ancef at d/c or not but faxed [facility] pt's current MAR, the PICC insertion note, and the Ortho PA prog note. Dr Pearson to be the following ID MD. Plan: BSA/AML COMPLIANCE OFFICER to keep [facility] updated tomorrow if more determined after I&D this afternoon as [facility] tentatively planning on maybe d/c Monday. [facility] will still need the discharge summary with the IV-Abx needed, dosing, frequency and for [facility] to manage at discharge. AURORA Peters
--- NOTE | 2021-10-01 10:59 | PC.NURSE ---
Pt awake, denies discomfort at this time. MD in to see. Pt NPO at this time until Md returns in regard to surgery. Hemavac drain discontinued as per orders. Vanco level draw from PICC w/o incidence. Dsg to right knee CDI, pt request andrea wrap be loosened. Call light w/in reach, pt calls appropriately for needs. Stable post op course.
[2021-10-01 11:29] LABS: Vancomycin Peak 15.9 ug/mL (20-40)
--- NOTE | 2021-10-01 11:31 | PT.IPTN ---
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, initial encounter (09/28/21) Presence of unspecified artificial knee joint (09/28/21) Surgery Performed Operation Date: 09/28/21 18:15 Actual Procedures p Knee I&D & poly exchange(Right) - Yazmin De La Cruz MD Physical Therapy Treatment Note M2 PT-IP Current Condition Start: 09/29/21 12:57 Freq: NEEDED Status: Active Protocol: Document 09/29/21 17:12 MA (Rec: 09/29/21 18:27 MA [id number]) Physical Therapy Current Condition Current Condition Evaluation Date 09/29/21 Treatment Diagnosis s/p R TKA revision and I&D; difficulty in walking Onset Date 09/28/21 M3 PT-IP Subjective Start: 09/29/21 12:57 Freq: NEEDED Status: Active Protocol: Document 10/01/21 11:08 KS (Rec: 10/01/21 12:26 KS [id number]) Subjective Physical Therapy Visit Type Type Treatment Note Visit Start Time 11:08 Visit Stop Time 11:31 Total Visit Minutes 23 Number of CIVIL DESIGN TECHNICIAN Visits 4 Physical Therapy Visit Comments Patient Comments Pt agreeable to working w/ therapy. Therapy Pain Assessment Pain When Pain Assessed At Rest Pain Present Pain Present Pain Reported Location Right Knee Intensity 2 Scale Used Numeric (0 - 10) Pain Management Techniques Apply Cold,Elevation,Re- positioning,Timing of Activity with Medications M4 PT-IP Mobility and Gait Start: 09/29/21 12:57 Freq: NEEDED Status: Active Protocol: Document 10/01/21 11:08 KS (Rec: 10/01/21 12:26 KS [id number]) PT-Bed Mobility Assessment Scooting Scooting to Edge of Bed Standby Assistance PT-Transfer Assessment Sit to and From Stand Sit to and from Stand Contact Guard Assistance,1 Person Assistance,Use of Upper Extremities Equipment Transfer Assistive Device Gait Belt,Front Wheeled Walker Orthotic/Prosthetic Devices or Brace: No Transfers Transfer Destination Chair Transfer Technique ambulated using FWW Transfer Ability Level of Assist Contact Guard Assistance,1 Person Assistance,Use of Upper Extremities Comments Mobility Comments Pt in chair upon arrival from therapy and agreeable to ambulate around room. CGA for sit<>stand w/ FWW, pt ambulated ~120 ft around room w/ FWW CGA. Pt then requested to sit down due to fatigue. Pt able to complete 1x10 bilateral ankle pumps, quad sets, heel slides, and glute sets. Left in chair w/ all needs in reach. Gait Assessment Gait Gait Assistance Required: Contact Guard Assist,1 Person Assist Distance (Feet) 120 Able to Maintain Weight Bearing Status Yes During Gait Assistive Devices Assistive Device Gait Belt,Front Wheeled Walker Orthotic/Prosthetic Devices or Brace: No Gait Deviations General Gait Pattern Antalgic,Decreased Stride Length,Decreased Feet Clearance,Step-to Gait Factors Limiting Gait Function Factors Limiting Gait Function Decreased Activity Tolerance, Decreased Strength,Limited Range of Motion,Pain,Poor Balance,Poor Safety Awareness Comments Gait Comments Pt w/ low tolerance for ambulation due to weakness and pain but able to ambulate 120 ft w/ FWW CGA. PT-Balance Assessment Sitting Balance and Reactions Static Sitting Balance Ability Good Dynamic Sitting Balance Ability Good Standing Balance and Reactions Static Standing Balance Ability Good Dynamic Standing Balance Ability Fair Device Used FWW M5 PT-IP Objective Assessments Start: 09/29/21 12:57 Freq: NEEDED Status: Active Protocol: Document 09/29/21 10:50 AB (Rec: 09/29/21 13:09 AB [id number]) Orientation Orientation/Cognition Level of Alertness Alert Orientation Name,Place,Situation Safety Awareness Decreased Safety Awareness Memory Description No Deficits Noted Gross Range of Motion Lower Extremity ROM Assessment Right Impaired Impairments R knee flexion: ~ 40 deg R knee extension: 15 deg less to 0 Strength Lower Extremity Strength Assessment Right Impaired Hip 4-/5 Knee 3-/5 Sensation Assessment Sensation Gross Sensation WNL Muscle Tone Muscle Tone WNL Yes M6 PT-IP Treatment Start: 09/29/21 12:57 Freq: NEEDED Status: Active Protocol: Document 10/01/21 11:08 KS (Rec: 10/01/21 12:26 KS [id number]) Physical Therapy Treatment Exercises Exercises Ankle Pumps,Gluteal Sets,Quad Sets,Heel Slides Education Education Provided Precautions,Weight Bearing Status,Safety M7 PT-IP Assessment and Plan Start: 09/29/21 12:57 Freq: NEEDED Status: Active Protocol: Document 10/01/21 11:08 KS (Rec: 10/01/21 12:26 KS [id number]) PT Summary Assessment and Plan Potential Rehabilitation Potential Good Status of Condition at Evaluation Evolving Summary Impairments Pain,ROM,Strength,Balance, Coordination,Sensation,Tone, Cognition,Bed Mobility, Transfers,Gait,Activity Tolerance Assessment Summary Pt able to tolerate more ambulation today, but still remains limited by low activity tolerance. Able to complete exercises for strengthening, ROM, and blood flow. Pt may require HHPT depending on progress. Goals Bed Mobility Goal Standby Assistance Transfer Goal Standby Assistance,Front Wheeled Walker Gait Goal Standby Assistance,Front Wheel Walker Gait Distance 200 Other Goals up/down 2 platform steps using fWW SBA Days to Meet Goals 10 Frequency of Treatment Frequency Of Treatment Twice a Day Treatment Plan Physical Therapy Treatment Plan Bed Mobility Training,Transfer Training,Gait Training, Therapeutic Exercise,Balance Retraining,Post Op Education, Discharge Planning,Hot or Cold Pack,Neuromuscular Re-ed, Coordination Retraining,Manual Therapy Other Recommendations and Next Treatment 2 PF steps. Focus Weight Bearing Status Weight Bearing Status Weight Bear as Tolerated Allowed Weight Bearing Amount (enter % RLE WBAT or #) (%) Recommendations To Nursing Amount of Assist Needed Standby Assistance Discharge Recommendations PT Discharge Recommendations Home with 30/01 Assist Available,Home Health,SNF Rehab,Home vs SNF Transportation Needs at Discharge Private Vehicle,Wheelchair/ Cabulance
--- NOTE | 2021-10-01 14:30 | PT-IP ANOTE ---
Attempted to see pt at 14:30, pt had just met w/ Dr. De La Cruz and will be going back to the OR at 1600 and would like to rest until then
[2021-10-01] MEDS: LACTATED RINGERS 1,000 ML 42 ML IV ×2 (15:44→22:44)
--- NOTE | 2021-10-01 16:21 | PM.PNPO.1 ---
Subjective Subjective Date Patient Seen: 10/01/21 Time Patient Seen: 14:00 Interval history: Alan and I had an extensive discussion today. I have also been in contact with Dr. Christianne marlow RO from Infectious Disease. He has 4 positive blood cultures for Staph aureus and had cultures of his knee positive for Staph aureus. He has had some initial response to his irrigation do and debridement and polyethylene exchange but he has had positive blood cultures after his irrigation and debridement. He did not have symptoms for up to a year after his total knee arthroplasty but then it blew up precipitously and he was brought in with sepsis. Exam Vital Signs (past 8 hours): - 10/01/21 15:56 Temperature 97.7 F Pulse Rate 78 Respiratory Rate 16 Blood Pressure 138/82 Pulse Oximetry 97 Oxygen Delivery Method Room Air Oxygen Flow Rate 0 Narrative Exam Narrative: Is resting comfortably in bed HEENT is benign lungs are clear cor regular rate and rhythm his right knee dressing is in place, there was moderate joint effusion there is no erythema has fair range of motion Objective Labs Result Diagrams: 10/01/21 06:07 10/01/21 06:07 Labs: Laboratory Results - last 24 hr 10/01/21 10/01/21 10/01/21 06:07 06:07 06:07 WBC 12.3 H RBC 4.54 Hgb 13.4 L Hct 39.2 L MCV 86.4 MCH 29.4 MCHC 34.0 RDW 13.8 Plt Count 271 Neut % (Auto) 82.1 H Lymph % (Auto) 7.6 L [place] % (Auto) 8.9 Eos % (Auto) 1.0 L Baso % (Auto) 0.4 Neut # (Auto) 46396 H Lymph # (Auto) 900 L [place] # (Auto) 1100 H Eos # (Auto) 100 Baso # (Auto) 0 Sodium 136 L Potassium 3.6 Chloride 103 Carbon Dioxide 24 BUN 14 Creatinine 0.66 Estimated GFR > 60.0 BUN/Creatinine Ratio 21.2 Glucose 128 H Calcium 8.8 Total Bilirubin 0.8 AST 37 ALT 54 H Alkaline Phosphatase 78 C-Reactive Protein 24.7 H Total Protein 6.9 Albumin 3.5 Globulin 3.4 Albumin/Globulin Ratio 1.0 Vancomycin Peak Vancomycin Trough < 5.0 L 10/01/21 10:30 WBC RBC Hgb Hct MCV MCH MCHC RDW Plt Count Neut % (Auto) Lymph % (Auto) [place] % (Auto) Eos % (Auto) Baso % (Auto) Neut # (Auto) Lymph # (Auto) [place] # (Auto) Eos # (Auto) Baso # (Auto) Sodium Potassium Chloride Carbon Dioxide BUN Creatinine Estimated GFR BUN/Creatinine Ratio Glucose Calcium Total Bilirubin AST ALT Alkaline Phosphatase C-Reactive Protein Total Protein Albumin Globulin Albumin/Globulin Ratio Vancomycin Peak 15.9 L Vancomycin Trough PFSH Medical History Diverticulitis Enlarged prostate HLD (hyperlipidemia) HTN (hypertension) IBS (irritable bowel syndrome) OBDULIA on CPAP Osteoarthritis Surgical History History of arthroscopy of left shoulder History of carpal tunnel release History of nasal surgery Hx of arthroscopy of left knee Hx of knee surgery (~1975) Social History household members: spouse Smoking Status: Never smoker alcohol intake: current Assessment & Plan Post-op Postoperative Procedures: Procedures Operation Date: 09/28/21 18:15 Actual Procedure Side Surgeon p Knee I&D & poly exchange Right Yazmin De La Cruz MD Operation Date: 10/01/21 16:15 <No data on this case meets the specified criteria> Postoperative status narrative: We had an extensive discussion today. Unfortunately he has a periprosthetic joint if it infection with Staph aureus. He was treated emergently when he came in in sepsis. He has had some initial response but after extensive consideration an extensive discussion with Infectious Disease and with the patient I think his best chance for curing his staph infection is to do a 2 staged exchange arthroplasty. The risks benefits complications and the plan for removal of his knee replacement placement of an antibiotic spacer and need for secondary revision knee arthroplasty as well as prolonged IV antibiotics was discussed in detail. Patient understands and agrees. Quality VTE Deep Vein Thrombosis/Pulmonary Embolism Present on Admission: No
[2021-10-01] MEDS: TRANEXAMIC ACID 1,000 MG VIAL 2000 MG INJ ×2 (16:40→18:50)
[2021-10-01] MEDS: TOBRAMYCIN 1.2 GM VIAL INTRA-ARTI (17:16)
[2021-10-01] MEDS: VANCOMYCIN 1,000 MG VIAL 1000 MG INTRA-ARTI (17:18)
[2021-10-01] MEDS: BUPIVACAINE 0.25% (PF) 60 ML, EPINEPHrine 0.3 MG INJ (17:20)
[2021-10-01] MEDS: BUPIVACAINE LIPOSOME 266 MG/20 ML VIAL INJ (17:21)
--- NOTE | 2021-10-01 20:38 | PM.OP.1 ---
Operative Date/Time/Diagnoses Date of procedure: 10/01/21 Time of procedure: 16:30 Pre-op diagnosis: PERIPROSTHETIC RIGHT KNEE INFECTION Post-op diagnosis: same Procedure & Clinicians Procedure: Revision right total knee arthroplasty with placement of an antibiotic spacer Same procedure as scheduled: Yes Indications: This is a 60-year-old gentleman who is over a year after right total knee arthroplasty who presented with an acute septicemia with Staph aureus her positive blood cultures and positive knee cultures. Previously underwent an irrigation and debridement and poly exchange but due to some persistent bacteremia and positive blood cultures it was felt that he needed a 2 staged exchange total joint arthroplasty with placement of an antibiotic spacer. Surgeon: Yazmin De La Cruz Member Service Representative: Kacie Shah Anesthesia Type: General Operative Notes Findings: No obvious gross persistent infection, extensive debridement done with a full synovectomy and removal of all previous components and cement. Closure Type: primary Specimen(s): other (Multiple cultures) Prosthetic devices, grafts, tissues, transplants, or devices: Antibiotic spacer placed with a size 7 femur, size 13 dished poly Applied: drain(s) Estimated Blood Loss (mL): 350 Blood products transfused: none Tourniquet time (min): 127 Procedure in detail: The patient was seen in the pre-operative area, where the patient identified the right knee as the operative site and this was marked with my initials. The patient received pre-operative antibiotics, and was taken to the operating room and placed on the operative table in the supine position. After satisfactory anesthesia, a timekeeping supervisor out was performed. The right leg was encircled with a tourniquet about the proximal thigh, and the leg was prepared from the toes to the tourniquet with ChloroPrep in the usual fashion and draped through sterile drapes. The leg was elevated and exsanguinated with Eschmark bandage and the tourniquet inflated to [250] mmHg pressure. The knee was approached through an approximately 22 cm incision centered over the patella and carried into the knee through a medial parapatellar arthrotomy. Soft tissue was carefully mobilized around the patella the patella component was meticulously removed with a saw. Residual cement was meticulously resected. The pegs were carefully removed. All cement from the peg holes were carefully removed and a culture was sent from the deep patella. Synovial cultures were also sent. An extensive synovectomy was performed. The patella was carefully mobilized. Polyethylene was removed. Attention was then directed to the femur. The femur was meticulously removed using a combination of ITP S saw multiple osteotomes and meticulous dissection around the component to carefully free it from the underlying cement mantle. The femoral component was removed with really very minimal bone loss. Tourniquet was kept elevated and I meticulously dissected around to define the prosthetic cement interface and to try and remove the prosthesis with minimal bone loss. It was densely adherent to the bone and required fairly extensive work to free it. Attention was then directed at the tibia. Combination of oscillating saw T PS multiple osteotomes including stacked osteotomes and a tibial extractor was used to remove the tibial component. There is no significant loss on the medial side of the knee was a little bit of bone loss in the posterolateral corner. Was little difficult to free the tibia adequately to anteriorly translate the tibia and clear the posterolateral corner despite meticulously freeing the medial soft tissues in order to allowed anterior subluxation of the tibia. Next the knee was meticulously irrigated with pulse lavage. I specifically checked the femoral canal both of the tibia and the of the femur and used a drill to drill small amount of residual cement at the tip of the tibia and then used a combination of curettes to remove any residual cement. An extra medullary guide it being use previously and there was no but not significant canal penetration on the tibial side. Tourniquet was deflated with a total tourniquet time of 127 minutes. After completely cleaning the knee and checking for any residual cement soft tissue or infected appearing synovium, the knee was irrigated with dilute iodine. Next the knee was provisionally closed with interrupted PDS and skin juan c. It was covered with an IOband. The knee was then re-prepped and draped and a new set up was opened. Juan C and provisional stitches were removed. The bone was meticulously irrigated with normal saline. Trial components were placed and they appeared to appropriately fit to the femur and tibia. I used a dished polyethylene for slight increased AP stability. The bone was carefully irrigated. It was left just a little bit moist to allow cement fixation without maximum interdigitation. The polyethylene component was roughened with a saw. It was then cemented into place without difficulty. I did place a small pegged on the tibial component in order to provide additional stability. Antibiotic cement tobramycin and vancomycin was used. The femoral component was cemented with a separate batch. The cement was carefully allowed to harden. Patient was placed thru a range of motion there was acceptable tracking of the quad mechanism and adequate stability at 0, 45 and 90?. Posterior capsule was injected with part of a mixture of 60 ml 0.25% Marcaine mixed with 20 ml Exparel for post operative pain control. The remainder of this mixture was injected into the capsule and subcutaneous tissues during cement curing.l tibial and femoral components were then placed and the knee placed through a range of motion. Range of motion was [0-130], with good stability throughout the range. The knee was copiously irrigated. Hemostasis was obtained with the Bovie cautery. A drain was placed and brought out superolaterally. The capsule was closed with interrupted monofilament PDS suture. The subcutaneous layer was closed with PDS and skin juan c. A addison dressing was applied and the patient was taken to recovery having tolerated the procedure well. Complications: none Post-operative Condition: stable Disposition: Acute Care Plan for aftercare: Continue IV antibiotics for 6 weeks postoperatively. Ancef 2 g IV q.8 hours. Patient needs a new PICC line placed prior to discharged when he has had negative blood cultures for at least 48 hours. Plan is to attempt to send him home on IV antibiotics. He can be partial weight-bearing on the right lower extremity. He will follow up with me and Dr. Toya Pearson from Infectious Disease.
[2021-10-01] MEDS: HYDROMORPHONE 2 MG INJ IV ×3 (21:07→21:34)
[2021-10-01] MEDS: fentaNYL 250 MCG/5 ML INJ IV (21:08)
[2021-10-01] MEDS: ONDANSETRON 4 MG/2 ML INJ IV (21:08)
--- NOTE | 2021-10-01 21:20 | DI.RAD.S_ITS ---
PROCEDURE: XR KNEE RT 1TO2V INDICATIONS: right knee total prosthetic removal TECHNIQUE: Two views of the knee acquired. COMPARISON: [facility], CR, XR KNEE 3 VIEWS RIGHT, 09/28/2021, 9:43. [facility], CR, XR KNEE RT 1TO2V, 05/21/2020, 10:21. FINDINGS: Bones: There are interval postsurgical changes status post removal of the tibial component of the right knee prosthesis. There is cement material demonstrated within the surgical site within the proximal tibia. Associated lucencies along the lateral cemento-osseous interface are noted within the proximal tibia which may reflect loosening or infection. Soft tissues: Overlying postoperative changes are noted. There is a moderate joint effusion. IMPRESSION: 1. Interval postsurgical changes consistent with removal of fracture fragments described on recent CT. 2. Postsurgical changes status post revision right knee prosthesis with removal of the tibial component. Mildly displaced fractures of the lateral and medial tibial plateau are demonstrated. Dictated by: Anand Fernandes M.D. on 10/01/2021 at 22:50 Approved by: Anand Fernandes M.D. on 10/01/2021 at 22:54
--- NOTE | 2021-10-01 21:31 | SUR.PHASEI ---
Patient resting comfortably and talking with PACU nurse; DI unable to perform xray at this time due to commitments in the ER.
[2021-10-01] MEDS: DOCUSATE 100 MG CAPSULE PO (22:38)
[2021-10-01] MEDS: lisinopriL 10 MG TABLET 30 MG PO (22:38)
[2021-10-01] MEDS: ATORVASTATIN 20 MG TABLET 10 MG PO (22:38)
[2021-10-01] MEDS: TAMSULOSIN 0.4 MG CAPSULE 0.8 MG PO (22:39)
[2021-10-01] MEDS: HYDROMORPHONE 2 MG TABLET PO (23:32)
[2021-10-02] VITALS (8 sets, daily range): BP systolic 111–135; BP diastolic 56–65; PULSE 78–91; RESP 16–20; TEMP 35.7–37.1; O2SAT 94–97
[2021-10-02] MEDS: VANCOMYCIN 2,000 MG/400 ML PIGGYBACK 200 MG IV ×3 (00:35→15:53)
[2021-10-02] MEDS: HYDROMORPHONE 2 MG TABLET PO ×3 (02:58→13:49)
[2021-10-02] MEDS: DOCUSATE 100 MG CAPSULE PO ×2 (07:54→22:04)
[2021-10-02] MEDS: ACETAMINOPHEN 325 MG TABLET 650 MG PO ×3 (07:54→22:02)
[2021-10-02] MEDS: CEFAZOLIN 2 GM/20 ML SYRINGE IV ×2 (07:54→15:16)
[2021-10-02] MEDS: ASPIRIN EC 81 MG TABLET PO ×2 (07:55→22:03)
[2021-10-02] MEDS: MULTIVITAMIN 1 TABLET 1 TAB PO (07:55)
--- NOTE | 2021-10-02 09:12 | P.PN_ITS ---
Subjective Subjective Date Patient Seen: 10/02/21 Time Patient Seen: 09:12 Interval history: Pt sitting up in chair, says right knee feels numb. Exam Vital Signs (past 8 hours): - 10/02/21 04:46 10/02/21 08:15 Temperature 96.8 F L 96.3 F L Pulse Rate 78 91 H Respiratory Rate 17 18 Blood Pressure 131/61 111/61 Pulse Oximetry 96 96 Oxygen Delivery Method Nasal Cannula Oxygen Flow Rate 2 Narrative Exam Narrative: 5/5 strength in hip flexors, quadriceps, hamstrings, DF, PF, EHL bilaterally. With the exception of numbness around surgical site, sensation to light touch intact in BLE. Calves soft, compressible, nontender and without palpable cords or masses. Objective Labs Result Diagrams: 10/01/21 06:07 10/01/21 06:07 Labs: Laboratory Results - last 24 hr 10/01/21 10:30 Vancomycin Peak 15.9 L PFSH Medical History Diverticulitis Enlarged prostate HLD (hyperlipidemia) HTN (hypertension) IBS (irritable bowel syndrome) OBDULIA on CPAP Osteoarthritis Surgical History History of arthroscopy of left shoulder History of carpal tunnel release History of nasal surgery Hx of arthroscopy of left knee Hx of knee surgery (~1975) Social History household members: spouse Smoking Status: Never smoker alcohol intake: current Assessment & Plan Post-op Assessment and plan (1) Status post revision of total knee: Assessment and Plan narrative: POD# 4 s/p knee washout and poly exchange POD# 1 s/p I&D, removal and replacement of hardware Continue daily blood cultures, await new wound culture results. Continue IV vancomycin and cefazolin for now. Dr De La Cruz continues to confer with [facility]. Mobilize with PT. Multimodal pain management. SCDs and ASA for VTE prophylaxis. Postoperative Procedures: Procedures Operation Date: 09/28/21 18:15 Actual Procedure Side Surgeon p Knee I&D & poly exchange Right Yazmin De La Cruz MD Operation Date: 10/01/21 16:15 Actual Procedure Side Surgeon p Total Knee I&D + removal of TKA Right Yazmin Mendez De La Cruz MD Quality VTE Deep Vein Thrombosis/Pulmonary Embolism Present on Admission: No
[2021-10-02] MEDS: SODIUM CHLORIDE 0.9% FLUSH 10 ML IV ×2 (11:45→22:06)
[2021-10-02 12:06] LABS: Add Manual Diff / Slide Review NO; Basophils Absolute Auto 0 /uL (0-100); Basophils Percent Auto 0.3 % (0-2); Eosinophils Absolute Auto 0 /uL (0-450); Eosinophils Percent Auto 0.3 % (2-4); Hematocrit 36.4 % (41-53); Hemoglobin 12.5 g/dL (13.5-17.5); Lymphocytes Absolute Auto 800 /uL (1100-4500); Mean Corpuscular HGB Conc 34.3 % (30-36); Mean Corpuscular Volume 87.4 fL (80-100); Monocytes Absolute Auto 1300 /uL (0-900); Monocytes Percent Auto 11.4 % (3-14); Neutrophils Absolute Auto 9400 /uL (1500-7000); Platelet Count 287 X10^3/uL (150-400); Red Blood Cell Count 4.16 X10^6/uL (4.5-5.9); Red Cell Distribution Width 13.9 % (11.6-14.8); White Blood Cell Count 11.5 X10^3/uL (4.5-11.0)
[2021-10-02 12:18] LABS: Alanine Aminotransferase 38 IU/L (<50); Albumin 3.5 g/dL (3.5-5.0); Albumin Globulin Ratio 1.1 (1.0-2.8); Alkaline Phosphatase 70 U/L (38-126); Aspartate Aminotransferase 32 IU/L (17-59); BUN Creatinine Ratio 16.7 (6-22); Bilirubin Total 0.8 mg/dL (0.2-1.3); Blood Urea Nitrogen 12 mg/dL (9-20); Calcium 8.5 mg/dL (8.4-10.2); Carbon Dioxide 21 mmol/L (22-32); Chloride 102 mmol/L (98-107); Estimated Glomerular Filt Rate > 60.0 mL/min (>60); Globulin 3.2 g/dL (1.7-4.1); Glucose 173 mg/dL (80-110); HEMOLYSIS < 15 (0-50); Potassium 3.9 mmol/L (3.4-5.1); Sodium 134 mmol/L (137-145); Total Protein 6.7 g/dL (6.3-8.2)
[2021-10-02 12:32] LABS: C-Reactive Protein Quant 22.3 mg/dL (<1.0)
--- NOTE | 2021-10-02 12:44 | PT-IP ANOTE ---
checked on pt but pt eating lunch. will check back in the afternoon.
--- NOTE | 2021-10-02 13:08 | PT.IPRE ---
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, initial encounter (09/28/21) Presence of unspecified artificial knee joint (09/28/21) Surgery Performed Operation Date: 09/28/21 18:15 Actual Procedures p Knee I&D & poly exchange(Right) - Yazmin De La Cruz MD Operation Date: 10/01/21 16:15 Actual Procedures p Total Knee I&D + removal of TKA(Right) - Yazmin De La Cruz MD Medical History (Last Reviewed 10/01/21 @ 07:37 by Fannie Manning PA-C) Diverticulitis Enlarged prostate HLD (hyperlipidemia) HTN (hypertension) IBS (irritable bowel syndrome) OBDULIA on CPAP Osteoarthritis Physical Therapy Inpatient Evaluation/Re-Eval M1 PT/OT-IP Prior Functional Status Start: 09/29/21 12:57 Freq: NEEDED Status: Active Protocol: Document 10/02/21 13:08 AB (Rec: 10/02/21 15:23 AB [email or web address]) Medical Review Prior Functional Status Medical History Reviewed Yes Communication able to make needs known Mobility and Gait pt stated that he is independent with all mobilities and ambulation without AD Social History Household Members spouse Living Arrangements House Number of Floors (Floors) One Floor Number of Stairs To Enter/Railing? 2 platform steps to enter without rails Home Environment Tub/Shower Home Equipment Front Wheel Walker,Straight Cane,Shower Seat without Backrest,Hand Held Shower,Grab Bars Near Toilet,Grab Bars In Shower M2 PT-IP Current Condition Start: 09/29/21 12:57 Freq: NEEDED Status: Active Protocol: Document 10/02/21 13:08 AB (Rec: 10/02/21 15:23 AB [email or web address]) Physical Therapy Current Condition Current Condition Evaluation Date 09/29/21 Treatment Diagnosis s/p R TKA revision; difficulty in walking Onset Date 09/28/21 M3 PT-IP Subjective Start: 09/29/21 12:57 Freq: NEEDED Status: Active Protocol: Document 10/02/21 13:08 AB (Rec: 10/02/21 15:23 AB [id number]) Subjective Physical Therapy Visit Type Type Re-Evaluation Visit Start Time 13:08 Visit Stop Time 13:20 Total Visit Minutes 12 Notes pt was admitted 09/28 s/p R TKA with polyethylene exchange and was WBAT but yesterday underwent another revision on R knee now with antibiotic space and is 50% PWB. Number of ANALYSIS MGR Visits 0 M4 PT-IP Mobility and Gait Start: 09/29/21 12:57 Freq: NEEDED Status: Active Protocol: Document 10/02/21 13:08 AB (Rec: 10/02/21 15:23 [email or web address]) PT-Bed Mobility Assessment Sit to Supine Sit to Supine Standby Assistance PT-Transfer Assessment Sit to and From Stand Sit to and from Stand Contact Guard Assistance,1 Person Assistance Equipment Transfer Assistive Device Gait Belt,Front Wheeled Walker Orthotic/Prosthetic Devices or Brace: No Transfers Transfer Destination Bed Transfer Technique ambulated Transfer Ability Level of Assist Standby Assistance,Contact Guard Assistance,1 Person Assistance,Use of Upper Extremities Comments Mobility Comments pt getting out of the toilet. completed sit to stand cGA. cued for 50% PWB on RLE. pt ambulated to the bed ~ 12 ft. educated on PWB on RLE and how to do sit<>stand. pt wanted to lay back in bed and completed sit to supine SBA. positioned in bed. call light and table placed within reach. Gait Assessment Gait Gait Assistance Required: Contact Guard Assist Distance (Feet) 12 Able to Maintain Weight Bearing Status Yes During Gait Assistive Devices Assistive Device Gait Belt,Front Wheeled Walker Orthotic/Prosthetic Devices or Brace: No Gait Deviations General Gait Pattern Antalgic,Decreased Stride Length,Decreased Feet Clearance Factors Limiting Gait Function Factors Limiting Gait Function Decreased Activity Tolerance, Decreased Strength,Difficulty Following Directions,Limited Range of Motion,Pain,Poor Balance PT-Balance Assessment Sitting Balance and Reactions Static Sitting Balance Ability Good Dynamic Sitting Balance Ability Good Standing Balance and Reactions Static Standing Balance Ability Fair Dynamic Standing Balance Ability Fair Device Used FWW M5 PT-IP Objective Assessments Start: 09/29/21 12:57 Freq: NEEDED Status: Active Protocol: Document 10/02/21 13:08 AB (Rec: 10/02/21 15:23 [email or web address]) Orientation Orientation/Cognition Level of Alertness Alert Orientation Name Language Function Ability No Deficits Noted Safety Awareness Decreased Safety Awareness Memory Description No Deficits Noted Strength Lower Extremity Strength Assessment Right Impaired Hip 4-/5 Knee 3-/5 Sensation Assessment Sensation Gross Sensation Right LE Impaired Sensation Description Numbness Comments Sensation Comments stated that R foot is still numb Muscle Tone Muscle Tone WNL Yes M6 PT-IP Treatment Start: 09/29/21 12:57 Freq: NEEDED Status: Active Protocol: Document 10/02/21 13:08 AB (Rec: 10/02/21 15:23 AB [id number]) Physical Therapy Treatment Education Education Provided Precautions,Weight Bearing Status,Safety M7 PT-IP Assessment and Plan Start: 09/29/21 12:57 Freq: NEEDED Status: Active Protocol: Document 10/02/21 13:08 AB (Rec: 10/02/21 15:23 AB [email or web address]) PT Summary Assessment and Plan Potential Rehabilitation Potential Good Status of Condition at Evaluation Evolving Summary Impairments Pain,ROM,Strength,Balance, Coordination,Sensation,Tone, Cognition,Bed Mobility, Transfers,Gait,Activity Tolerance Assessment Summary pt underwent another R TKA revision but now with antibiotic space and is 50% PWB on RLE. pt requiring CGA with mobility and able to maintain weight bearing restriction but with cues provided. will continue to assess progress. Goals Bed Mobility Goal Standby Assistance Transfer Goal Standby Assistance,Front Wheeled Walker Gait Goal Standby Assistance,Front Wheel Walker Gait Distance 200 Other Goals up/down 2 platform steps using fWW SBA Days to Meet Goals 10 Frequency of Treatment Frequency Of Treatment Twice a Day Treatment Plan Physical Therapy Treatment Plan Bed Mobility Training,Transfer Training,Gait Training, Therapeutic Exercise,Balance Retraining,Post Op Education, Discharge Planning,Hot or Cold Pack,Neuromuscular Re-ed, Coordination Retraining,Manual Therapy Weight Bearing Status Weight Bearing Status Partial Weight Bearing Allowed Weight Bearing Amount (enter % RLE 50% PWB or #) (%) Recommendations To Nursing Amount of Assist Needed 1 Person Assist Discharge Recommendations PT Discharge Recommendations Home with 30/01 Assist Available,Home Health,SNF Rehab,Home vs SNF Transportation Needs at Discharge Private Vehicle,Wheelchair/ Cabulance
--- NOTE | 2021-10-02 14:14 | PC.NURSE ---
Pt resting at intervals T/O day. SpO2 97% RA, lungs clear. Med w/ po Dilaudid x 2 w/ good relief. Dsg to right surgical knee CDI Hemavac intact/patent. Sat in chair for couple hours. Call light w/in reach, pt calls appropriately for needs. Continue w/plan of care.
--- NOTE | 2021-10-02 15:27 | CM.DPC ---
DCP Cont: Shana, pharmacist at [facility] called asking for updates. They already ran his Cefazolin through his insurance regarding cost. She indicated that they had been in contact with infectious disease MD, Dr. Melchor, and stated that he most likely would go home on the Cefazolin. She stated, they are prepared to do teaching tomorrow if patient is to discharge, but if another medication is added on, will have to wait until Monday so the paperwork can be completed. P: DCP to continue to follow. Plan at this time if home with [facility]. Pauline Mancia RN/Park Maintainer
[2021-10-02 21:33] LABS: Vancomycin Random 17.8 ug/mL (10-40)
[2021-10-02] MEDS: TAMSULOSIN 0.4 MG CAPSULE 0.8 MG PO (22:03)
[2021-10-02] MEDS: ATORVASTATIN 20 MG TABLET 10 MG PO (22:03)
[2021-10-02] MEDS: OXYCODONE IR 5 MG TABLET PO (22:04)
[2021-10-02] MEDS: lisinopriL 10 MG TABLET 30 MG PO (22:05)
[2021-10-03 00:07] VITALS: BP 128/54; PULSE 81; RESP 20; TEMP 35.9; O2SAT 95
[2021-10-03] MEDS: VANCOMYCIN TROUGH 1 REQUEST MISC (00:18)
[2021-10-03] MEDS: CEFAZOLIN 2 GM/20 ML SYRINGE IV ×4 (00:19→23:33)
[2021-10-03] MEDS: OXYCODONE IR 10 MG TABLET PO (00:35)
[2021-10-03 00:50] LABS: Vancomycin Trough 11.3 ug/mL (10-20)
[2021-10-03] MEDS: VANCOMYCIN 2,000 MG/400 ML PIGGYBACK 200 MG IV ×3 (01:02→15:29)
[2021-10-03] MEDS: VANCOMYCIN PEAK 1 REQUEST MISC (04:00)
[2021-10-03 04:39] VITALS: BP 139/64; PULSE 96; RESP 18; TEMP 36.4; O2SAT 95
[2021-10-03 07:15] VITALS: BP 145/69; PULSE 85; RESP 18; TEMP 36.1; O2SAT 97
[2021-10-03] MEDS: ACETAMINOPHEN 325 MG TABLET 650 MG PO ×3 (08:42→20:35)
[2021-10-03] MEDS: ASPIRIN EC 81 MG TABLET PO ×2 (08:42→20:34)
[2021-10-03] MEDS: DOCUSATE 100 MG CAPSULE PO ×2 (08:43→20:37)
[2021-10-03] MEDS: MULTIVITAMIN 1 TABLET 1 TAB PO (08:43)
[2021-10-03] MEDS: SODIUM CHLORIDE 0.9% FLUSH 10 ML IV ×2 (08:45→20:36)
--- NOTE | 2021-10-03 09:08 | PC.NURSE ---
Addendum entered by Tracie Pinzon R.N. 10/03/21 15:47: amb room with PT c/o right knee pain 7/10, medicated with ibuprofen and dilaudid po per request as the dilaudid works better, and he thinks the oxy po may give somewhat of a headache will monitor. HV pull and line intact, applied 4x4 drsg with paper tape, pt cindy well. Addendum entered by Tracie Pinzon R.N. 10/03/21 10:01: pt up in chair with PT, c/o pain 7/10 in right knee, medicated with oxy 5mg and ibuprofen 600mg with monitor. Original Note: Pt alert and oriented. denies pain, taking po without difficulty, Ra 96% right knee drsg CDI, wiggles toes HV and Fabiola in place. call light within reach.
--- NOTE | 2021-10-03 09:39 | PT.IPTN ---
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, initial encounter (09/28/21) Presence of unspecified artificial knee joint (09/28/21) Surgery Performed Operation Date: 09/28/21 18:15 Actual Procedures p Knee I&D & poly exchange(Right) - Yazmin De La Cruz MD Operation Date: 10/01/21 16:15 Actual Procedures p Total Knee I&D + removal of TKA(Right) - Yazmin De La Cruz MD Physical Therapy Treatment Note M2 PT-IP Current Condition Start: 09/29/21 12:57 Freq: NEEDED Status: Active Protocol: Document 10/02/21 13:08 AB (Rec: 10/02/21 15:23 AB [email or web address]) Physical Therapy Current Condition Current Condition Evaluation Date 09/29/21 Treatment Diagnosis s/p R TKA revision; difficulty in walking Onset Date 09/28/21 M3 PT-IP Subjective Start: 09/29/21 12:57 Freq: NEEDED Status: Active Protocol: Document 10/03/21 09:39 AW (Rec: 10/03/21 10:48 AW [email or web address]) Subjective Physical Therapy Visit Type Type Treatment Note Visit Start Time 09:15 Visit Stop Time 09:39 Total Visit Minutes 24 Number of FLAG SIGNALMAN Visits 0 Physical Therapy Visit Comments Patient Comments Pt agreeable to working w/ therapy. Therapy Pain Assessment Pain When Pain Assessed At Rest Pain Present Pain Present Denied Pain M4 PT-IP Mobility and Gait Start: 09/29/21 12:57 Freq: NEEDED Status: Active Protocol: Document 10/03/21 09:39 AW (Rec: 10/03/21 10:48 AW [email or web address]) PT-Bed Mobility Assessment Supine to Sit Supine to Sit Standby Assistance,Head of Bed Elevated Scooting Scooting to Edge of Bed Standby Assistance PT-Transfer Assessment Sit to and From Stand Sit to and from Stand Standby Assistance,Use of Upper Extremities Equipment Transfer Assistive Device Gait Belt,Front Wheeled Walker Orthotic/Prosthetic Devices or Brace: No Transfers Transfer Destination Toilet Transfer Technique ambulated with FWW Transfer Ability Level of Assist Standby Assistance,Contact Guard Assistance,1 Person Assistance,Use of Upper Extremities Comments Mobility Comments Pt was in bed as PT arrived. With HOB elevated (has adj bed at home), he completed supine to sit SBA using LLE to lift RLE and moving slowly with increased effort. Pt stood SBA and used FWW to ambulate toward the platform step at foot of bed. Educated pt extensively on technique and pt stepped up mod A and cues. He pushed the FWW forward and stepped down mod A and cues. Pt asked to use the toilet. He ambulated 15 feet to the toilet and transferred SBA with cues to use the grab bar to control descent. Ortho surgeon and pt's arrived and pt was left on the toilet with instruction to call RN when ready to get up. Gait Assessment Gait Gait Assistance Required: Standby Assistance,Contact Guard Assist Distance (Feet) 15 Able to Maintain Weight Bearing Status Yes During Gait Assistive Devices Assistive Device Gait Belt,Front Wheeled Walker Orthotic/Prosthetic Devices or Brace: No Gait Deviations General Gait Pattern Antalgic,Decreased Stride Length,Decreased Feet Clearance Factors Limiting Gait Function Factors Limiting Gait Function Decreased Activity Tolerance, Decreased Strength,Difficulty Following Directions,Limited Range of Motion,Pain,Poor Balance Comments Gait Comments Pt is able to ambulate 12 feet with FWW and TTWB RLE. Stair Climbing Assessment Evaluation Level of Assist On Stairs Moderate Assistance,1 Person Assistance Devices Stair Climbing Assistive Devices Front Wheel Walker Technique/Endurance Stair Climbing Direction Ascend and Descend Stair Climbing Technique Step to Step Number of Steps Climbed 1 Stair Climbing Set # Repetitions (reps) 1 Comments Stair Climbing Comments See mobility comments for details. PT-Balance Assessment Sitting Balance and Reactions Static Sitting Balance Ability Good Dynamic Sitting Balance Ability Good Standing Balance and Reactions Static Standing Balance Ability Fair Dynamic Standing Balance Ability Fair Device Used FWW M5 PT-IP Objective Assessments Start: 09/29/21 12:57 Freq: NEEDED Status: Active Protocol: Document 10/02/21 13:08 AB (Rec: 10/02/21 15:23 AB [email or web address]) Orientation Orientation/Cognition Level of Alertness Alert Orientation Name Language Function Ability No Deficits Noted Safety Awareness Decreased Safety Awareness Memory Description No Deficits Noted Strength Lower Extremity Strength Assessment Right Impaired Hip 4-/5 Knee 3-/5 Sensation Assessment Sensation Gross Sensation Right LE Impaired Sensation Description Numbness Comments Sensation Comments stated that R foot is still numb Muscle Tone Muscle Tone WNL Yes M6 PT-IP Treatment Start: 09/29/21 12:57 Freq: NEEDED Status: Active Protocol: Document 10/03/21 09:39 AW (Rec: 10/03/21 10:48 AW [email or web address]) Physical Therapy Treatment Education Education Provided Weight Bearing Status,Safety M7 PT-IP Assessment and Plan Start: 09/29/21 12:57 Freq: NEEDED Status: Active Protocol: Document 10/03/21 09:39 AW (Rec: 10/03/21 10:48 AW [email or web address]) PT Summary Assessment and Plan Potential Rehabilitation Potential Good Status of Condition at Evaluation Evolving Summary Impairments Pain,ROM,Strength,Balance, Coordination,Sensation,Tone, Cognition,Bed Mobility, Transfers,Gait,Activity Tolerance Progress Towards Goals Progressing Toward Goals,Slow Progress due to Pain,Slow Progress due to Activity Tolerance Assessment Summary Pt needs SBA/CGA for short distance ambulation with FWW but is able to maintain 50% PWB RLE. On platform step, pt needed mod A and cues. Will need caregiver training prior to discharge. Plan is for home and pt will require PT. Goals Bed Mobility Goal Standby Assistance Transfer Goal Standby Assistance,Front Wheeled Walker Gait Goal Standby Assistance,Front Wheel Walker Gait Distance 200 Other Goals up/down 2 platform steps using fWW SBA Days to Meet Goals 10 Frequency of Treatment Frequency Of Treatment Twice a Day Treatment Plan Physical Therapy Treatment Plan Bed Mobility Training,Transfer Training,Gait Training, Therapeutic Exercise,Balance Retraining,Post Op Education, Discharge Planning,Hot or Cold Pack,Neuromuscular Re-ed, Coordination Retraining,Manual Therapy Other Recommendations and Next Treatment 2 PF steps. Focus Weight Bearing Status Weight Bearing Status Partial Weight Bearing Allowed Weight Bearing Amount (enter % RLE 50% PWB or #) (%) Recommendations To Nursing Amount of Assist Needed 1 Person Assist Discharge Recommendations PT Discharge Recommendations Home with 30/01 Assist Available,Home Health,Home vs SNF Transportation Needs at Discharge Private Vehicle,Wheelchair/ Cabulance
[2021-10-03] MEDS: IBUPROFEN 600 MG TABLET PO ×2 (09:58→15:40)
[2021-10-03] MEDS: OXYCODONE IR 5 MG TABLET PO (09:59)
--- NOTE | 2021-10-03 10:05 | P.PN_ITS ---
Subjective Subjective Date Patient Seen: 10/03/21 Time Patient Seen: 09:45 Interval history: The patient reports he he is reasonably comfortable. He is having difficulty negotiating a small step as per physical therapy. This is necessary in preparation for discharge home. Exam Vital Signs (past 8 hours): - 10/03/21 04:39 10/03/21 07:15 Temperature 97.5 F L 97.0 F L Pulse Rate 96 H 85 Respiratory Rate 18 18 Blood Pressure 139/64 145/69 H Pulse Oximetry 95 97 Oxygen Delivery Method Nasal Cannula Oxygen Flow Rate 0 Narrative Exam Narrative: Right knee wound is dressed with no drainage on the bandage. There is moderate swelling of the right knee, no erythema. Calf is soft. Light touch is subjectively reduced in the toes however object of Veronica intact. He can dorsiflex and plantar flex the toes on command. Drain has put out 70 mL in the past 24 hours. Objective Labs Result Diagrams: 10/02/21 11:37 10/02/21 11:37 Labs: Laboratory Results - last 24 hr 10/02/21 10/02/21 10/02/21 11:37 11:37 20:50 WBC 11.5 H RBC 4.16 L Hgb 12.5 L Hct 36.4 L MCV 87.4 MCH 30.0 MCHC 34.3 RDW 13.9 Plt Count 287 Neut % (Auto) 81.0 H Lymph % (Auto) 7.0 L Anderson % (Auto) 11.4 Eos % (Auto) 0.3 L Baso % (Auto) 0.3 Neut # (Auto) 9400 H Lymph # (Auto) 800 L Anderson # (Auto) 1300 H Eos # (Auto) 0 Baso # (Auto) 0 Sodium 134 L Potassium 3.9 Chloride 102 Carbon Dioxide 21 L BUN 12 Creatinine 0.72 Estimated GFR > 60.0 BUN/Creatinine Ratio 16.7 Glucose 173 H Calcium 8.5 Total Bilirubin 0.8 AST 32 ALT 38 Alkaline Phosphatase 70 C-Reactive Protein 22.3 H Total Protein 6.7 Albumin 3.5 Globulin 3.2 Albumin/Globulin Ratio 1.1 Vancomycin Peak Cancelled Vancomycin Trough Random Vancomycin 17.8 10/02/21 10/03/21 23:59 04:30 WBC RBC Hgb Hct MCV MCH MCHC RDW Plt Count Neut % (Auto) Lymph % (Auto) Anderson % (Auto) Eos % (Auto) Baso % (Auto) Neut # (Auto) Lymph # (Auto) Anderson # (Auto) Eos # (Auto) Baso # (Auto) Sodium Potassium Chloride Carbon Dioxide BUN Creatinine Estimated GFR BUN/Creatinine Ratio Glucose Calcium Total Bilirubin AST ALT Alkaline Phosphatase C-Reactive Protein Total Protein Albumin Globulin Albumin/Globulin Ratio Vancomycin Peak 24.0 Vancomycin Trough 11.3 Random Vancomycin PFSH Medical History Diverticulitis Enlarged prostate HLD (hyperlipidemia) HTN (hypertension) IBS (irritable bowel syndrome) OBDULIA on CPAP Osteoarthritis Surgical History History of arthroscopy of left shoulder History of carpal tunnel release History of nasal surgery Hx of arthroscopy of left knee Hx of knee surgery (~1975) Social History household members: spouse Smoking Status: Never smoker alcohol intake: current Assessment & Plan Post-op Postoperative Procedures: Procedures Operation Date: 09/28/21 18:15 Actual Procedure Side Surgeon p Knee I&D & poly exchange Right Yazmin De La Cruz MD Operation Date: 10/01/21 16:15 Actual Procedure Side Surgeon p Total Knee I&D + removal of TKA Right Yazmin De La Cruz MD Postoperative day: 2 Postoperative status: doing well, anemia and other (Osteomyelitis and septic arthritis right knee) Postoperative plan: routine post-op care and ambulate Postoperative plan narrative: He is stable postoperatively from the explant of an infected right total knee replacement. Cultures are growing Gram positive cocci but sensitivities are pending. He is on vancomycin. Discharge on appropriate antibiotics depends on the sensitivities which should be available tomorrow. He does have a mild post hemorrhagic anemia which does not require specific treatment. His drain output has been reduced and we will discontinue his drain today. He has had a PICC line placed and is ready for discharge on h ome IV antibiotics once we have appropriate data on which to base decisions on antibiotic coverage. Time Spent With Patient Time with patient: less than 15 minutes Quality VTE Deep Vein Thrombosis/Pulmonary Embolism Present on Admission: No
[2021-10-03 11:20] VITALS: BP 148/65; PULSE 86; RESP 19; TEMP 36; O2SAT 96
--- NOTE | 2021-10-03 13:35 | CM.DPC ---
Addendum entered by Pauline Mancia R.N. 10/03/21 16:03: Maninder CasperTRussell indicated that home health may be advisable, for he may have thought that this search planner was talking about outpatient P.T. Went ahead and completed face to face. Can discuss again with patient tomorrow regarding his selection of home health agencies. Went ahead and added nursing on face to face for PICC line drsng changes and labs, and P.T. to work on stairs and mobility. Original Note: DCP Cont: Met briefly with patient. Dr. Penn had been here to see patient, but sensitivities are still pending. Asked patient if he was interested in going to rehab, just to clarify, and he stated, I'm going home. Asked him if he was interested in home health for P.t, nursing, and he stated, I'm not sure, Dr. Penn said to go home and rest, and wait until outpatient appointment. Left patient the Medicare Choice List with home health agencies in case he changes his mind, or if ortho indicates otherwise. He did work with P.T. today. P: DCP to continue to follow. Plan is home with [facility], home health is still up in the air. Pauline Mancia RN/Computer Operations Analyst
[2021-10-03] MEDS: HYDROMORPHONE 2 MG TABLET PO (15:42)
--- NOTE | 2021-10-03 15:57 | PT.IPTN ---
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, initial encounter (09/28/21) Presence of unspecified artificial knee joint (09/28/21) Surgery Performed Operation Date: 09/28/21 18:15 Actual Procedures p Knee I&D & poly exchange(Right) - Yazmin De La Cruz MD Operation Date: 10/01/21 16:15 Actual Procedures p Total Knee I&D + removal of TKA(Right) - Yazmin De La Cruz MD Physical Therapy Treatment Note M2 PT-IP Current Condition Start: 09/29/21 12:57 Freq: NEEDED Status: Active Protocol: Document 10/02/21 13:08 AB (Rec: 10/02/21 15:23 AB [email or web address]) Physical Therapy Current Condition Current Condition Evaluation Date 09/29/21 Treatment Diagnosis s/p R TKA revision; difficulty in walking Onset Date 09/28/21 M3 PT-IP Subjective Start: 09/29/21 12:57 Freq: NEEDED Status: Active Protocol: Document 10/03/21 15:57 AW (Rec: 10/03/21 16:13 AW [email or web address]) Subjective Physical Therapy Visit Type Type Treatment Note Visit Start Time 15:33 Visit Stop Time 15:57 Total Visit Minutes 24 Number of ASPHALT SMOOTHER Visits 0 Physical Therapy Visit Comments Patient Comments Pt is willing to participate with PT Patient Goals Return home with family support Therapy Pain Assessment Pain When Pain Assessed During Mobility Pain Present Pain Present Pain Reported Location Right Knee Intensity 6 Scale Used Numeric (0 - 10) Pain Management Techniques Apply Cold,Elevation,Re- positioning,Timing of Activity with Medications M4 PT-IP Mobility and Gait Start: 09/29/21 12:57 Freq: NEEDED Status: Active Protocol: Document 10/03/21 15:57 AW (Rec: 10/03/21 16:13 AW [id number]) PT-Bed Mobility Assessment Supine to Sit Supine to Sit Standby Assistance,Head of Bed Elevated Sit to Supine Sit to Supine Standby Assistance Scooting Scooting to Edge of Bed Standby Assistance PT-Transfer Assessment Sit to and From Stand Sit to and from Stand Standby Assistance,Use of Upper Extremities Equipment Transfer Assistive Device Gait Belt,Front Wheeled Walker Orthotic/Prosthetic Devices or Brace: No Transfers Transfer Destination Toilet Transfer Technique ambulated with FWW Transfer Ability Level of Assist Standby Assistance,1 Person Assistance,Use of Upper Extremities Comments Mobility Comments Pt was in bed as PT arrived. He agreed to get up, using LLE to lift RLE to left side of bed. Supine to sit was slow and labored but SBA. He stood SBA and used FWW to ambulate 35 feet in the room SBA before transferring to the toilet. PT faded cues and pt was able to properly off-weight RLE during transitions. He returned to bed with FWW and completed sit to supine SBA with LLE lifting RLE to the bed. Pt was left with call light in hand and bed alarm on . Gait Assessment Gait Gait Assistance Required: Standby Assistance,Contact Guard Assist Distance (Feet) 35 Able to Maintain Weight Bearing Status Yes During Gait Assistive Devices Assistive Device Gait Belt,Front Wheeled Walker Orthotic/Prosthetic Devices or Brace: No Gait Deviations General Gait Pattern Antalgic,Decreased Stride Length,Decreased Feet Clearance,Step-to Gait Factors Limiting Gait Function Factors Limiting Gait Function Decreased Activity Tolerance, Decreased Strength,Limited Range of Motion,Pain,Poor Balance Comments Gait Comments Pt increased gait distance to 35 feet. He fatigues quickly but is able to maintain PWB 50 %. Stair Climbing Assessment Comments Stair Climbing Comments Will need to follow up in AM to set up caregiver training with for stair management . PT-Balance Assessment Sitting Balance and Reactions Static Sitting Balance Ability Good Dynamic Sitting Balance Ability Good Standing Balance and Reactions Static Standing Balance Ability Fair Dynamic Standing Balance Ability Fair Device Used FWW M5 PT-IP Objective Assessments Start: 09/29/21 12:57 Freq: NEEDED Status: Active Protocol: Document 10/02/21 13:08 AB (Rec: 10/02/21 15:23 AB [email or web address]) Orientation Orientation/Cognition Level of Alertness Alert Orientation Name Language Function Ability No Deficits Noted Safety Awareness Decreased Safety Awareness Memory Description No Deficits Noted Strength Lower Extremity Strength Assessment Right Impaired Hip 4-/5 Knee 3-/5 Sensation Assessment Sensation Gross Sensation Right LE Impaired Sensation Description Numbness Comments Sensation Comments stated that R foot is still numb Muscle Tone Muscle Tone WNL Yes M6 PT-IP Treatment Start: 09/29/21 12:57 Freq: NEEDED Status: Active Protocol: Document 10/03/21 15:57 AW (Rec: 03/27/22 16:13 AW [id number]) Physical Therapy Treatment Education Education Provided Weight Bearing Status,Safety Other Treatments Other Treatment Performed Shoulder circles and scapular retractions peformed in standing to address strain caused by intense UE weightbearing. M7 PT-IP Assessment and Plan Start: 09/29/21 12:57 Freq: NEEDED Status: Active Protocol: Document 10/03/21 15:57 AW (Rec: 10/03/21 16:13 AW [id number]) PT Summary Assessment and Plan Potential Rehabilitation Potential Good Status of Condition at Evaluation Evolving Summary Impairments Pain,ROM,Strength,Balance, Coordination,Sensation,Tone, Cognition,Bed Mobility, Transfers,Gait,Activity Tolerance Assessment Summary Alan was able to progress his ambulation distance to 35 feet with FWW and good attention to 50% PWB RLE. Will need to coordinate caregiver training for step management before pt discharges. Goals Bed Mobility Goal Standby Assistance Transfer Goal Standby Assistance,Front Wheeled Walker Gait Goal Standby Assistance,Front Wheel Walker Gait Distance 200 Other Goals up/down 2 platform steps using fWW SBA Days to Meet Goals 10 Frequency of Treatment Frequency Of Treatment Twice a Day Treatment Plan Physical Therapy Treatment Plan Bed Mobility Training,Transfer Training,Gait Training, Therapeutic Exercise,Balance Retraining,Post Op Education, Discharge Planning,Hot or Cold Pack,Neuromuscular Re-ed, Coordination Retraining,Manual Therapy Other Recommendations and Next Treatment coordinate time for CGT with Focus (?) Weight Bearing Status Weight Bearing Status Partial Weight Bearing Allowed Weight Bearing Amount (enter % RLE 50% PWB or #) (%) Recommendations To Nursing Amount of Assist Needed 1 Person Assist Discharge Recommendations PT Discharge Recommendations Home with 30/01 Assist Available,Home Health Transportation Needs at Discharge Private Vehicle,Wheelchair/ Cabulance
[2021-10-03 20:00] VITALS: BP 115/52; PULSE 84; RESP 18; TEMP 36.4; O2SAT 96
[2021-10-03 20:34] VITALS: BP 115/52; PULSE 84
[2021-10-03] MEDS: lisinopriL 10 MG TABLET 30 MG PO (20:34)
[2021-10-03] MEDS: TAMSULOSIN 0.4 MG CAPSULE 0.8 MG PO (20:34)
[2021-10-03] MEDS: ATORVASTATIN 20 MG TABLET 10 MG PO (20:35)
[2021-10-03] MEDS: SODIUM CHLORIDE 0.9% 250 ML 21 ML IV (23:34)
[2021-10-04] VITALS (7 sets, daily range): BP systolic 109–142; BP diastolic 54–66; PULSE 72–89; RESP 16–18; TEMP 35.7–36.7; O2SAT 94–97
[2021-10-04] MEDS: VANCOMYCIN 2,000 MG/400 ML PIGGYBACK 200 MG IV ×2 (00:09→09:03)
[2021-10-04] MEDS: IBUPROFEN 600 MG TABLET PO (02:18)
[2021-10-04] MEDS: HYDROMORPHONE 2 MG TABLET PO ×4 (02:18→15:28)
--- NOTE | 2021-10-04 06:50 | PC.NURSE ---
Pt was sat on his chair tonight for about 2 hours. Pt was able to transfer himself with FWW and SBA. Pt taking dilaudid 2mg PO for pain and was able to sleep most of the night.
[2021-10-04] MEDS: ASPIRIN EC 81 MG TABLET PO ×2 (09:03→20:22)
[2021-10-04] MEDS: ACETAMINOPHEN 325 MG TABLET 650 MG PO ×3 (09:03→20:23)
[2021-10-04] MEDS: CEFAZOLIN 2 GM/20 ML SYRINGE IV ×2 (09:03→15:29)
[2021-10-04] MEDS: DOCUSATE 100 MG CAPSULE PO ×2 (09:03→20:20)
[2021-10-04] MEDS: MULTIVITAMIN 1 TABLET 1 TAB PO (09:04)
[2021-10-04] MEDS: SODIUM CHLORIDE 0.9% FLUSH 10 ML IV ×2 (09:04→20:23)
--- NOTE | 2021-10-04 10:36 | PT.IPTN ---
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, initial encounter (09/28/21) Presence of unspecified artificial knee joint (09/28/21) Surgery Performed Operation Date: 09/28/21 18:15 Actual Procedures p Knee I&D & poly exchange(Right) - Yazmin De La Cruz MD Operation Date: 10/01/21 16:15 Actual Procedures p Total Knee I&D + removal of TKA(Right) - Yazmin De La Cruz MD Physical Therapy Treatment Note M2 PT-IP Current Condition Start: 09/29/21 12:57 Freq: NEEDED Status: Active Protocol: Document 10/02/21 13:08 AB (Rec: 10/02/21 15:23 AB [id number]) Physical Therapy Current Condition Current Condition Evaluation Date 09/29/21 Treatment Diagnosis s/p R TKA revision; difficulty in walking Onset Date 09/28/21 M3 PT-IP Subjective Start: 09/29/21 12:57 Freq: NEEDED Status: Active Protocol: Document 10/04/21 10:12 KS (Rec: 10/04/21 12:10 KS [id number]) Subjective Physical Therapy Visit Type Type Treatment Note Visit Start Time 10:12 Visit Stop Time 10:36 Total Visit Minutes 24 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 of 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 FIXER APPRENTICE Visits 1 Physical Therapy Visit Comments Patient Comments Pt is willing to participate with PT Patient Goals Return home with family support M4 PT-IP Mobility and Gait Start: 09/29/21 12:57 Freq: NEEDED Status: Active Protocol: Document 10/04/21 10:12 KS (Rec: 10/04/21 12:10 KS [id number]) PT-Bed Mobility Assessment Supine to Sit Supine to Sit Standby Assistance,Head of Bed Elevated Sit to Supine Sit to Supine Standby Assistance Scooting Scooting to Edge of Bed Standby Assistance PT-Transfer Assessment Sit to and From Stand Sit to and from Stand Standby Assistance,Use of Upper Extremities Equipment Transfer Assistive Device Gait Belt,Front Wheeled Walker Orthotic/Prosthetic Devices or Brace: No Transfers Transfer Destination Bed Transfer Technique ambulated with FWW Transfer Ability Level of Assist Standby Assistance,1 Person Assistance,Use of Upper Extremities Comments Mobility Comments Pt SBA for sup<>sit and scooting EOB w/ HOb elevated. SBA for sit<>Stand w/ FWW. Pt ambulated ~20 ft around room w / FWW SB while maintaining PWB . He then ascended/descended platform step w/ FWW going backwards while ascending CGA and cues. Able to complete twice and states he feels confident to complete at home also. Pt ambulated additonal 20 ft and returned to bed SBA using LLE to self assist RLE into bed. Gait Assessment Gait Gait Assistance Required: Standby Assistance,1 Person Assist Distance (Feet) 40 Able to Maintain Weight Bearing Status Yes During Gait Assistive Devices Assistive Device Gait Belt,Front Wheeled Walker Orthotic/Prosthetic Devices or Brace: No Gait Deviations General Gait Pattern Antalgic,Decreased Stride Length,Decreased Feet Clearance,Step-to Gait Factors Limiting Gait Function Factors Limiting Gait Function Decreased Activity Tolerance, Decreased Strength,Limited Range of Motion,Pain,Poor Balance Comments Gait Comments Able to maintain PWB throughout. Stair Climbing Assessment Evaluation Level of Assist On Stairs Contact Guard Assistance,1 Person Assistance Devices Stair Climbing Assistive Devices Front Wheel Walker Technique/Endurance Stair Climbing Direction Ascend and Descend Stair Climbing Technique Step to Step Number of Steps Climbed 1 Stair Climbing Set # Repetitions (reps) 2 Comments Stair Climbing Comments Pt able to ascend platform step twice backwards w/ cues and CGA and descend twice going forwards CGA and cues for sequencing. PT-Balance Assessment Sitting Balance and Reactions Static Sitting Balance Ability Good Dynamic Sitting Balance Ability Good Standing Balance and Reactions Static Standing Balance Ability Fair Dynamic Standing Balance Ability Fair Device Used FWW M5 PT-IP Objective Assessments Start: 09/29/21 12:57 Freq: NEEDED Status: Active Protocol: Document 10/02/21 13:08 AB (Rec: 10/02/21 15:23 AB [id number]) Orientation Orientation/Cognition Level of Alertness Alert Orientation Name Language Function Ability No Deficits Noted Safety Awareness Decreased Safety Awareness Memory Description No Deficits Noted Strength Lower Extremity Strength Assessment Right Impaired Hip 4-/5 Knee 3-/5 Sensation Assessment Sensation Gross Sensation Right LE Impaired Sensation Description Numbness Comments Sensation Comments stated that R foot is still numb Muscle Tone Muscle Tone WNL Yes M6 PT-IP Treatment Start: 09/29/21 12:57 Freq: NEEDED Status: Active Protocol: Document 10/04/21 10:12 KS (Rec: 10/04/21 12:10 KS [id number]) Physical Therapy Treatment Education Education Provided Weight Bearing Status,Safety M7 PT-IP Assessment and Plan Start: 09/29/21 12:57 Freq: NEEDED Status: Active Protocol: Document 10/04/21 10:12 MARIANO (Rec: 10/04/21 12:10 MARIANO [id number]) PT Summary Assessment and Plan Potential Rehabilitation Potential Good Status of Condition at Evaluation Evolving Summary Impairments Pain,ROM,Strength,Balance, Coordination,Sensation,Tone, Cognition,Bed Mobility, Transfers,Gait,Activity Tolerance Assessment Summary Pt able to ascend platform step backwards w/ FWW CGA and cues today and descend going forwards. Pt states he feels confident in performing stairs this way at home. He ambulated ~40 ft while maintaining PWB. Goals Bed Mobility Goal Standby Assistance Transfer Goal Standby Assistance,Front Wheeled Walker Gait Goal Standby Assistance,Front Wheel Walker Gait Distance 200 Other Goals up/down 2 platform steps using fWW SBA Days to Meet Goals 10 Frequency of Treatment Frequency Of Treatment Twice a Day Treatment Plan Physical Therapy Treatment Plan Bed Mobility Training,Transfer Training,Gait Training, Therapeutic Exercise,Balance Retraining,Post Op Education, Discharge Planning,Hot or Cold Pack,Neuromuscular Re-ed, Coordination Retraining,Manual Therapy Other Recommendations and Next Treatment coordinate time for CGT with Focus (?) Weight Bearing Status Weight Bearing Status Partial Weight Bearing Allowed Weight Bearing Amount (enter % RLE 50% PWB or #) (%) Recommendations To Nursing Amount of Assist Needed 1 Person Assist Discharge Recommendations PT Discharge Recommendations Home with 30/01 Assist Available,Home Health Transportation Needs at Discharge Private Vehicle,Wheelchair/ Cabulance
--- NOTE | 2021-10-04 11:29 | CM.DPC ---
Addendum entered by Pauline Mancia R.N. 10/04/21 15:33: Was able to get in touch with Kenn at [facility], and he is updated on patient. He will talk to nursing to see if the nurse will go to his home for teaching, or come here. He is aware of the times of his antibiotics. Addendum entered by Pauline Mancia R.N. 10/04/21 15:00: Spoke to Dr. De La Cruz, orthopedist. Confirmed that patient will be discharged only on Ancef 2 grams q [address] hours, but Dr. De La Cruz indicated that patient may need new PICC line today, most likely ready tomorrow. Left a message with Kenn at [facility]. Verified with nurse, Xochilt, that patient is currently receiving medication 12:15am, 0815, and 1615. Left this information with Kenn on his voice mail. In the message also let him know that patient does not want home health, wants [facility] to do PICC dressing changes. Original Note: DCP Cont: Nurse Coordinator, Xochilt, called this DC planner scheduler and let her know that sensitivities are in. Encouraged her to have nurse call ortho to see if they decide on an antibiotic for patient to go home on. Called patient and revisited home health. He stated, he really doesn't want it at this time, as long as [facility] can do the dressing changes. Let him know that this bilingual patient support caseworker will update [facility] on this. P: DCP to continue to follow closely. Patient has declined home health at this time. As soon as ABO is identified, can update [facility]. Pauline Mancia RN/[employer]
--- NOTE | 2021-10-04 13:49 | PT-IP ANOTE ---
Pt wanting to hold on PT this PM due to fatigue and still unsure if he is going home. Pt completed stair training and ambulation earlier and feels safe to return home. Will check back tomorrow.
--- NOTE | 2021-10-04 16:23 | P.PN_ITS ---
Subjective Subjective Date Patient Seen: 10/04/21 Time Patient Seen: 07:30 Interval history: Patient states his pain is [id number]. Denies fever chills. No nausea vomiting. Exam Vital Signs (past 8 hours): - 10/04/21 09:07 10/04/21 15:00 Temperature 98 F Pulse Rate 78 Respiratory Rate 16 Blood Pressure 134/61 Pulse Oximetry 96 96 Oxygen Delivery Method Room Air Oxygen Flow Rate 0 Narrative Exam Narrative: 60-year-old male resting comfortably in bed in no apparent distress. Dressing is Clean, dry, intact. Motor function intact bilateral lower extremity. Sensation grossly intact to light touch bilateral lower extremities. Objective Labs Result Diagrams: 10/02/21 11:37 10/02/21 11:37 [facility] Medical History Diverticulitis Enlarged prostate HLD (hyperlipidemia) HTN (hypertension) IBS (irritable bowel syndrome) OBDULIA on CPAP Osteoarthritis Surgical History History of arthroscopy of left shoulder History of carpal tunnel release History of nasal surgery Hx of arthroscopy of left knee Hx of knee surgery (~1975) Social History household members: spouse Smoking Status: Never smoker alcohol intake: current Assessment & Plan Post-op Postoperative Procedures: Procedures Operation Date: 09/28/21 18:15 Actual Procedure Side Surgeon p Knee I&D & poly exchange Right Yazmin De La Cruz MD Operation Date: 10/01/21 16:15 Actual Procedure Side Surgeon p Total Knee I&D + removal of TKA Right Yazmin De La Cruz MD Postoperative status narrative: Patient status post excisional irrigation and debridement right knee with polyethylene exchange September 28, [address] De La Cruz. Postoperative plan narrative: Cultures this morning were not yet finalized. After cultures were finalized Dr. De La Cruz was notified and she consulted with Infectious Disease. ID recommending continue 2 g IV Ancef q.8 hours x6 weeks. Stop vancomycin. Infectious Disease also recommend changing out his PICC line prior to discharge. Patient has been mobilizing with physical therapy and will be discharged home tomorrow. Patient has follow-up appointment with infectious disease October 06, 2021 at 2:30 p.m. Quality VTE Deep Vein Thrombosis/Pulmonary Embolism Present on Admission: No
[2021-10-04] MEDS: ATORVASTATIN 20 MG TABLET 10 MG PO (20:22)
[2021-10-04] MEDS: TAMSULOSIN 0.4 MG CAPSULE 0.8 MG PO (20:22)
[2021-10-04] MEDS: lisinopriL 10 MG TABLET 30 MG PO (20:23)
[2021-10-05] MEDS: CEFAZOLIN 2 GM/20 ML SYRINGE IV ×3 (00:48→15:23)
[2021-10-05] MEDS: HYDROMORPHONE 2 MG TABLET PO (01:48)
[2021-10-05 02:00] VITALS: BP 135/60; PULSE 77; RESP 18; TEMP 36.2; O2SAT 95
[2021-10-05 07:00] VITALS: BP 133/61; PULSE 79; RESP 18; TEMP 35.7; O2SAT 96
[2021-10-05] MEDS: ACETAMINOPHEN 325 MG TABLET 650 MG PO ×2 (09:05→14:49)
[2021-10-05] MEDS: ASPIRIN EC 81 MG TABLET PO (09:06)
[2021-10-05] MEDS: MULTIVITAMIN 1 TABLET 1 TAB PO (09:06)
[2021-10-05] MEDS: DOCUSATE 100 MG CAPSULE PO (09:06)
--- NOTE | 2021-10-05 09:28 | DI.RAD.S_ITS ---
PROCEDURE: XR CHEST FOR PICC 1V INDICATIONS: line placement COMPARISON: [facility], CR, XR CHEST FOR PICC 1V, 09/29/2021, 11:41. FINDINGS: PICC was placed by the intravenous therapy team from the left side. Fluoroscopic spot film demonstrates the tip of PICC projecting to the area of mid SVC. IMPRESSION: Tip of PICC projects to the area of mid SVC. Approved by: Antwan Randall M.D. on 10/05/2021 at 9:30
[2021-10-05 09:57] VITALS: O2SAT 99
[2021-10-05] MEDS: OXYCODONE IR 5 MG TABLET PO ×2 (10:38→14:55)
--- NOTE | 2021-10-05 10:38 | PT-IP ANOTE ---
Attempted to see pt at 10:38, pt awaiting d/c home and states he has no further needs from PT and feels confident in ability to return home.
--- NOTE | 2021-10-05 11:01 | PM.DS.1 ---
History of Present Illness History of Present Illness Date Patient Seen: 10/05/21 Time Patient Seen: 11:01 Chief complaint: Right knee pain/infection, H/O R TKA Narrative: Patient is complaining of [id number] right knee pain this morning after his right total knee arthroplasty revision. His PICC line was changed today. He is receiving Ancef every 8 hours. Partial weight-bearing on his right lower extremity. Patient denies any new numbness or tingling. No fevers, chills, night sweats. Overall he is feeling well like to be discharged home today. Discharge Providers Provider Date of admission: 09/28/21 14:54 Discharge Date: 10/05/21 Primary care physician: Gino Gu MD Consults: 09/28/21 19:29 Consult to Anesthesiology Routine Comment: Consulting Provider: Anesthesiologist Reason for consultation: Regional block for post operative pain control 09/28/21 23:19 Consult to Discharge Planning Routine Comment: Consult to Physical Therapy Evaluate & Treat Comment: Physician Instructions: postop TKA protocol Consult to Respiratory Therapy Evaluate & Treat Comment: Physician Instructions: Evaluate and treat 09/29/21 07:05 Consult to Respiratory Therapy Evaluate & Treat Comment: 60y M s/p rev TKA/poly exchange, BMI 43, OBDULIA+CPAP Physician Instructions: Evaluate and treat Discharge provider: Fannie Manning PA-C Summary Hospital Course Discharge Diagnosis: PERIPROSTHETIC RIGHT KNEE INFECTION Hospital Course: Operative Date/Time/Diagnoses Date of procedure: 10/01/21 Time of procedure: 16:30 Procedure & Clinicians Procedure: Revision right total knee arthroplasty with placement of an antibiotic spacer Same procedure as scheduled: Yes Indications: This is a 60-year-old gentleman who is over a year after right total knee arthroplasty who presented with an acute septicemia with Staph aureus her positive blood cultures and positive knee cultures.? Previously underwent an irrigation and debridement and poly exchange but due to some persistent bacteremia and positive blood cultures it was felt that he needed a 2 staged exchange total joint arthroplasty with placement of an antibiotic spacer. Surgeon: Yazmin De La Cruz Chemical Process Analyst: Kacie Shah Anesthesia Type: General Operative Notes Findings: No obvious gross persistent infection, extensive debridement done with a full synovectomy and removal of all previous components and cement. Closure Type: primary Specimen(s): other (Multiple cultures) Prosthetic devices, grafts, tissues, transplants, or devices: Antibiotic spacer placed with a size 7 femur, size 13 dished poly Applied: drain(s) Estimated Blood Loss (mL): 350 Blood products transfused: none Tourniquet time (min): 127 Operative Date/Time/Diagnoses Date of procedure: 09/28/21 Time of procedure: 20:00 Pre-op diagnosis: Right knee acute effusion and possible periprosthetic joint infection with history of previous right total knee arthroplasty Post-op diagnosis: same Procedure & Clinicians Procedure: Excisional Irrigation and debridement right knee with polyethylene exchange. Same procedure as scheduled: Yes Indications: This is a 60-year-old with a history of a right total knee arthroplasty have developed an acute right knee effusion spontaneously and had fevers at home with an aspiration that showed white blood cells possible Gram-positive cocci and uric acid crystals.? He had fevers to 102 with an elevated white count is brought to the operating room urgently for irrigation debridement of his right knee.? His right total knee arthroplasty was functioning well prior to the acute episode Surgeon: Yazmin De La Cruz Chemical Process Analyst: Kacie Shah Anesthesia Type: General Operative Notes Findings: Large cloudy right knee joint effusion, severe? synovitis, components well fixed no evidence of loosening Closure Type: primary Specimen(s): other (Multiple deep cultures and PCR) Prosthetic devices, grafts, tissues, transplants, or devices: De La Cruz [employer] 2 size 8 +10 tibial polyethylene component Applied: drain(s) Estimated Blood Loss (mL): 250 Blood products transfused: none Status at Discharge Cognitive/behavioral status at discharge: oriented Functional status at discharge: uses cane/walker Overall status at discharge: patient is progressing back to baseline Exam Vital Signs (past 8 hours): - 10/05/21 07:00 10/05/21 09:57 Temperature 96.3 F L Pulse Rate 79 Respiratory Rate 18 Blood Pressure 133/61 Pulse Oximetry 96 99 Oxygen Delivery Method Room Air Oxygen Flow Rate 0 Narrative Exam Narrative: Pleasant 60-year-old male, resting comfortably in bed, no acute distress. Dressing is clean, dry, intact. Bilateral lower extremity: Motor functions are grossly intact, sensation is grossly intact to light touch, calves are soft and nontender to palpation. Objective Labs Result Diagrams: 10/02/21 11:37 10/02/21 11:37 [facility] Medical History Diverticulitis Enlarged prostate HLD (hyperlipidemia) HTN (hypertension) IBS (irritable bowel syndrome) OBDULIA on CPAP Osteoarthritis Surgical History History of arthroscopy of left shoulder History of carpal tunnel release History of nasal surgery Hx of arthroscopy of left knee Hx of knee surgery (~1975) Social History household members: spouse Smoking Status: Never smoker alcohol intake: current Discharge Assessment & Plan Assessment and Plan Assessment: Stable status post right total knee arthroplasty revision Plan of Treatment: -Postoperative status narrative: Patient status post excisional irrigation and debridement right knee with polyethylene exchange September 28, [address] De La Cruz, with a subsequent right total knee arthroplasty revision with removal of components and new femoral component and all poly tibia. -Postoperative plan narrative: Cultures this morning are not yet finalized. Currently growing Staph aureus.? After cultures were finalized Dr. De La Cruz consulted with Infectious Disease. ID recommending continue 2 g IV Ancef q.8 hours x6 weeks.? This will be [facility] by [facility] after discharge. -PICC line changed after 48 hours of negative blood cultures, per Infectious Disease. -partial weight-bearing right lower extremity, patient has been mobilizing with physical therapy. -planning on DC home today after PICC line training and labs -Patient has follow-up appointment with infectious disease October 06, 2021 at 2:30 p.m. Discharge Plan Discharge Plan Patient Disposition: Home Discharge orders & Medications Prescriptions: New cefazolin in dextrose (iso-os) 2 gram/100 mL Piggyback 100 ml IV Q8H 42 Days Qty: 1200 0RF Rx Instructions: 2 g IV every 8 hours x6 weeks acetaminophen 325 mg Tablet 650 mg PO TID Qty: 60 0RF aspirin 81 mg Tablet,Delayed Release (Dr/Ec) 81 mg PO BID Qty: 60 0RF oxycodone 10 mg Tablet 10 mg PO Q3HR PRN (Reason: Pain, Severe (7-10)) Qty: 60 0RF polyethylene glycol 3350 17 gram Powder In Packet 17 g PO DAILY PRN (Reason: Constipation) Qty: 14 0RF Continued cyclobenzaprine 10 mg tablet 5 mg PO DIRECTED PRN (Reason: spasm) 0RF atorvastatin 10 mg Tablet 10 mg PO BEDTIME 0RF tamsulosin [Flomax] 0.4 mg Capsule 0.8 mg PO BEDTIME 0RF lisinopril 30 mg Tablet 30 mg PO BEDTIME 0RF ibuprofen 600 mg Tablet 600 mg PO QD-BID PRN (Reason: Pain) 0RF Multi Complete with Iron 18-400 mg-mcg Tablet 1 tab PO DAILY 0RF Follow up/Referrals: Toya Pearson MD [Non-Staff] - (Appointment scheduled for October 06, 2021 at 2:30 p.m.) Gino Gu MD [Primary Care Provider] - Yazmin De La Cruz MD [Physician] - (Need a postop appointment on 10/14/[address] [place] [address] De La Cruz) Discharge Health Status Multidrug resistant organism: No MDRO Diet/Activity/Treatments Diet: Diet as Tolerated Other treatments: Medications: -Aspirin 81mg twice daily x6 weeks to prevent blood clots. -OTC Tylenol 500 mg 1 tablet every 4 hours as needed for pain/fever. Max 6 tablets per day. -Ibuprofen 400 mg 1 tablet every 4 hours as needed for pain/inflammation. Max 2,400 mg per day. -Oxycodone 5 mg take 1-2 tablets every 4 hours as needed for moderate-severe pain (narcotic pain medication). -As needed medications: -Ducolax and /or MiraLax as needed for constipation from narcotic pain medications. -Pepcid AC as needed for stomach upset (usually from aspirin or ibuprofen). Dressing/Wound care: -Remove the Eliazar wrap 48 hours after surgery. -Keep Aquacell dressing in place until postoperative follow-up office visit. -Okay to shower. Keep wound out of direct water stream. No soaking or submerging until all the scabs fall off (approximately 6 weeks). -Please call the office if dressing becomes wet, soiled, or saturated. Activities: -Partial Weight-bearing right lower extremity. Use front wheeled walker, and progress to cane when safe. -Continue with home exercises as directed by your physical therapist. -Elevate ?toes above the nose if you have significant swelling in your lower leg. (A wedge pillow is easiest.) -Ice your incision as needed for pain/inflammation/swelling. Protect your skin with a folded pillowcase. Follow-up: -Follow-up with your surgeon or PA in the office in 10-14 days after surgery. -Follow-up with your surgeon 6 weeks postoperatively. Call the office if you have chest pain, shortness of breath, significant swelling that will not resolve with elevating, fever over 101?, significantly worsening pain. [facility]: [phone] Infectious Disease: Continue IV antibiotics for 6 weeks postoperatively. Ancef 2 g IV q.8 hours [id number]. Patient needs a new PICC line placed prior to discharged when he has had negative blood cultures for at least 48 hours. Plan is to send him home on IV antibiotics, [facility] to manage after d/c. He will follow up Dr. Toya Pearson from Infectious Disease as scheduled 10/06/21. Skin/Wound/Dressing Care Report to your healthcare provider any signs of infection, such as:: chills, fever, night sweats, unusual drainage and unusual redness Visit Report/Discharge Packet Instructions: DI for Knee Replacement, DI for Prescription Opioid Use Stand Alone Forms: Surgery Discharge Discharge Data Primary Care Provider: Gino Gu VTE Deep Vein Thrombosis/Pulmonary Embolism Present on Admission: No
--- NOTE | 2021-10-05 11:51 | CM.DPC ---
DCP Discharge Home Infusion Per Ab MASTERSON, pt is medically stable to d/c home today with IV-Abx and ID MD Dr. Pearson to follow and outpt appointment scheduled. Ab BLAKE completed discharge. Per RN, PICC was placed this morning around 1030. CATINA spoke to Kenn at [facility] and updated and he confirms that they will complete bedside teaching around 1500 with pt and spouse for pt's next IV-Abx dose and send pt home with supplies for his next dosing tonight and will continue to follow. Pt and spouse are agreeable and happy to be going home today and confirm they still do not feel HH is needed. Plan: Patient to discharge home today via spouse POV around 1400 after Inf Dori teaching bedside at 1500 and outpt ID f/u with Dr. Pearson. Bety Herman MSW
--- NOTE | 2021-10-05 16:42 | PC.NURSE ---
Discharge Note Patient A&O, VSS, RA. No complaints of pain/discomfort. Discharge packet reviewed with patient and . All questions/concerns addressed. PIV removed, PICC in place for outpatient antibiotic treatment. All belongings packed and given to patient along with discharge packet. Patient taken down via wheelchair to POV.
[2021-10-06 10:18] LABS: Bacteria Det by PCR Univ WA DETECTED
== END 2021-10-05 16:40 | disposition home or self-care (01) | DRG 466 ==
PROVIDERS: Orthopaedic Surgery; Physician Assistant; Admitting Provider Orthopaedic Surgery; PCP Family Medicine; Referring Provider Orthopaedic Surgery; Visit Provider Orthopaedic Surgery
PROC: 0SRC0JZ Replacement of Right Knee Joint with Synthetic Substitute, Open Approach (ICD-10-PCS; CPT 27447; principal; 2021-09-28 18:15)
PROC: 0SPC0JZ Removal of Synthetic Substitute from Right Knee Joint, Open Approach (ICD-10-PCS; principal; 2021-10-01 16:15)
DX: T84.53XA Infection and inflammatory reaction due to internal right knee prosthesis, initial encounter (principal); A41.01 Sepsis due to Methicillin susceptible Staphylococcus aureus; M86.8X6 Other osteomyelitis, lower leg; M00.061 Staphylococcal arthritis, right knee; M65.9 Synovitis and tenosynovitis, unspecified; I10 Essential (primary) hypertension; E78.5 Hyperlipidemia, unspecified; N40.0 Benign prostatic hyperplasia without lower urinary tract symptoms; Z20.822 Contact with and (suspected) exposure to COVID-19
CPT/HCPCS: 36415; 36569; 36592; 73560; 80053; 80202; 85007; 85014; 85018; 85025; 85651; 86140; 87040; 87070; 87075; 87077; 87147; 87150; 87176; 87186; 87205; 87801; 93306; 94760; 94762; 97110; 97116; 97162; 97530; C1776; C1713; C9290; J0171; J0330; J0690; J1170; J1642; J2250; J2405; J2704; J3010; Q9957

== ENCOUNTER → 2021-12-28 12:04 | Outpatient (CLI) | payer OTHER, SELFPAY ==
[2021-09-28 17:12] VITALS: BMI 43.7
[2021-12-28 13:33] LABS: COVID19 -Nasal RAPID Negative (Negative)
== END ==
PROVIDERS: PCP Family Medicine; Referring Provider Orthopaedic Surgery; Visit Provider Orthopaedic Surgery
DX: Z20.822 Contact with and (suspected) exposure to COVID-19 (principal)
CPT/HCPCS: 87635; C9803

== ENCOUNTER 2021-12-30 06:12 | Day surgery (SDC) | payer OTHER, SELFPAY ==
[2021-09-28 17:12] VITALS: BMI 43.7
[2021-12-21 09:55] VITALS: BMI 42.3
[2021-12-30] VITALS (12 sets, daily range): BP systolic 104–140; BP diastolic 58–79; PULSE 73–88; RESP 12–18; TEMP 35.8–37.1; O2SAT 93–98; BMI 42.3
[2021-12-30] MEDS: LACTATED RINGERS 1,000 ML 42 ML IV ×2 (07:25→10:46)
--- NOTE | 2021-12-30 07:48 | PM.PREOP ---
Pre-operative Note COVID-19 COVID-19 status: Negative Interval Note History & Physical reviewed/Exam performed by Physician: Yes Changes to H&P: No H&P completed within 30 days and has changed as indicated here:: all cultures negative and synovasure
[2021-12-30] MEDS: VANCOMYCIN 1,000 MG/200 ML PIGGYBACK 200 MG IV ×2 (07:58→20:42)
[2021-12-30] MEDS: TRANEXAMIC ACID 1,000 MG VIAL 2000 MG INJ ×2 (08:25→10:35)
[2021-12-30] MEDS: CEFAZOLIN IV (08:27)
[2021-12-30] MEDS: BUPIVACAINE 0.5% (PF) VIAL 30 ML INJ (09:03)
[2021-12-30] MEDS: BUPIVACAINE 0.25% (PF) 60 ML, EPINEPHrine 0.3 MG INJ (09:04)
[2021-12-30] MEDS: BUPIVACAINE LIPOSOME 266 MG/20 ML VIAL INJ (09:05)
[2021-12-30] MEDS: VANCOMYCIN 1,000 MG VIAL 1000 MG INTRA-ARTI (09:07)
--- NOTE | 2021-12-30 12:20 | DI.RAD.S_ITS ---
PROCEDURE: XR KNEE RT 1TO2V INDICATIONS: POST OP RIGHT REVISION KNEE TECHNIQUE: 2 view(s) of the knee acquired. COMPARISON: [facility], , XR KNEE RT 1TO2V, 10/01/2021, 21:51. FINDINGS: Bones: Patient is status post knee joint revision arthroplasty. Hardware components are in expected positions. Visualized bony structures are intact. Soft tissues: Overlying postoperative changes are noted. IMPRESSION: Expected postsurgical change for right knee revision arthroplasty. Dictated by: Kailey Gilamn MD, PhD on 12/30/2021 at 12:51 Approved by: Kailey Gilman MD, PhD on 12/30/2021 at 12:51
[2021-12-30] MEDS: HYDROMORPHONE 2 MG INJ IV (12:21)
[2021-12-30] MEDS: LACTATED RINGERS 1,000 ML 100 ML IV (14:01)
[2021-12-30] MEDS: IBUPROFEN 400 MG TABLET PO ×3 (14:01→20:42)
--- NOTE | 2021-12-30 14:52 | P.OP_ITS ---
Operative Date/Time/Diagnoses Date of procedure: 12/30/21 Time of procedure: 08:00 Pre-op diagnosis: Retained antibiotic spacer with a right knee history of periprosthetic infection Post-op diagnosis: same Procedure & Clinicians Procedure: Revision right total knee arthroplasty with removal of antibiotic spacer and placement of revision total knee arthroplasty Same procedure as scheduled: Yes Surgeon: Yazmin De La Cruz Plant Protection Guard: Craig Argueta Anesthesia Type: General and Spinal Operative Notes Findings: No evidence of active infection, multiple specimen sent, adequate bone, antibiotic spacer removed with essentially no bone loss. Closure Type: primary Specimen(s): none sent Prosthetic devices, grafts, tissues, transplants, or devices: Legion revision size 7 tibial base plate plate, 14 x 160 cemented femoral stem, right [facility] revision femoral component, distal augments 5 mm medial and lateral femoral condyle, 12 x 160 cemented tibial stem, size 15 posterior stabilized poly, 38 mm round patella, size 7 constrained femoral component Applied: drain(s) Estimated Blood Loss (mL): 250 Blood products transfused: none Tourniquet time (min): 124 Procedure in detail: The patient was seen in the pre-operative area, where the patient identified the right knee as the operative site and this was marked with my initials. The patient received pre-operative antibiotics, and was taken to the operating room and placed on the operative table in the supine position. After satisfactory anesthesia, a manager maritime out was performed. The right leg was encircled with a tourniquet about the proximal thigh, and the leg was prepared from the toes to the tourniquet with ChloroPrep in the usual fashion and draped through sterile drapes. The leg was elevated and exsanguinated with Eschmark bandage and the tourniquet inflated to [300] mmHg pressure. The knee was approached through an approximately 24 cm incision centered over the patella and carried into the knee through a medial parapatellar arthrotomy. The incision was a carefully extended proximally and distally. There was substantial thickening of the capsule and tissues but there did not appear to be evidence consistent with infection. I did send multiple cultures including synovial cultures and cultures from underneath the femoral component, tibial component, patella, and the tibial canal. We meticulously stripped the tissue from around both the tibial and femoral component as well as carefully mobilizing the patella resecting thickened synovium and scar tissue in the lateral gutter as well as in the medial gutter. Soft tissue was carefully mobilized around the patella the patella was measured with a caliper. Minimal sliver cut was performed on the patella to freshened the patellar bed. The patellar height was reconstituted with up an appropriate sized patellar component. A cover was then placed on the patella. A small amount of additional medial and lateral soft tissue and scar was resected. The tibial polyethylene spacer was removed without difficulty. A saw was used to freshen a minimal amount of cement and then the spacer was removed with no bone loss. The femoral component was gently mobilized and removed with no bone loss. All of the cultures were carefully sent. The tibia was prepared. We removed any fibrous tissue from the proximal aspect of the tibia and any residual cement. The canal was then reamed until there was adequate distal fixation. A guide was placed on the table at tibia and about 1 mm of additional bone was resected for a freshening cut. The residual tibia was noted to a have pretty good quality bone without significant defects. The tibia was sized at a size 7. We evaluated both no offset and an offset carver and checkerer specials and it was felt that on offset carver and checkerer specials was not required. The patient was placed in extension residual medial and lateral meniscus as well as any residual bone was carefully resected. [No] additional tibia was resected. There were some bony osteophytes that were removed from both the posterior medial and posterolateral knee. Hemostasis was achieved especially posteriorly. Additional local was injected into the posterior capsule. The extension gap was assessed and additional releases for gap balancing were performed as necessary. There was a fairly substantial extension gap. It was slightly larger than the flexion gap. It was felt that we likely would require a distal femoral augment. The tibial trial plate was placed to protect the tibia. The femoral canal was then carefully reamed up to and tell there was adequate stability of the potential femoral stem. A distal femoral freshening cut was then performed resecting about 1 mm of bone from the medial lateral femoral condyle. I then reamed up to 16 for the carver and checkerer specials on the distal aspect of the femur as it looked like a size 7 femoral component would fit without requiring additional chamfer cuts or either anterior or posterior freshening cuts. I specifically looked to see if I should postdur al as the femoral component there was really pretty good gap balancing in flexion. A neutral stem was selected. The femoral component trial was placed and the notch was finished. Of few posterior osteophytes and soft tissues were then removed. The posterior capsule was injected with part of a mixture of 60 ml 0.25% Marcaine mixed with 20 ml Exparel for post operative pain control. The remainder of this mixture was injected into the capsule and subcutaneous tissues during cement curing. The tibial and femoral components were then placed with both the medial and lateral distal femoral augment and stems on both the femur and the tibia. The knee was placed through a range of motion. Range of motion was [0-130], with good stability throughout the range. There was good tracking of the patella. I was happy with both the flexion and the extension gap. It felt like we could probably go up to a 15 mm poly and posterior stabilized component was appropriate constraint. The trials were then removed, and the tibia was punched. The tourniquet was deflated as the components were constructed on the back table. The tourniquet was reinflated briefly during cement curing. The bone was prepared with pulsatile lavage, and dried with a sponge. Cement was applied and the final prosthetics placed. We carefully mixed 2 batches of cement and added some vancomycin powder to both batches. The tibia was cemented into place with 1 batch of cement and the femur and patella were cemented with a 2nd batch of cement. Excess cement was removed during and after cement curing. A brief Betadine soak was performed. After confirming there was no extruded cement posteriorly, the final tibial insert was placed. The knee was copiously irrigated and the tourniquet deflated. Hemostasis was obtained with the [Aquamantys system]. A drain was placed and brought out superolaterally. The capsule was closed with interrupted nonabsorbable suture. The subcutaneous layer was closed with barbed sutures, and the skin with a running 3-0 V-Lock suture and skin elysia. A addison dressing was applied and the patient was taken to recovery having tolerated the procedure well. Complications: none Post-operative Condition: stable Disposition: Acute Care Plan for aftercare: The patient will be maintained on a standard total knee replacement protocol with weight bearing as tolerated. The patient will receive aspirin and sequential compression devices for DVT prophylaxis. The patient will be discharged home when safe for the home environment. He will remain on IV antibiotics during his hospital stay and then be placed on oral antibiotics for at least 3 months postoperatively to decrease his risk for repeat infection or secondary periprosthetic infection.
[2021-12-30] MEDS: CEFAZOLIN 2 GM/20 ML SYRINGE IV (15:10)
[2021-12-30] MEDS: OXYCODONE IR 5 MG TABLET PO ×2 (15:10→18:24)
--- NOTE | 2021-12-30 16:05 | PT.IIE ---
Current Diagnoses Infection and inflammatory reaction due to internal right knee prosthesis, initial encounter (12/30/21) Surgery Performed Operation Date: 12/30/21 07:45 Actual Procedures p Revision Total Knee Arthroplasty(Right) - Yazmin De La Cruz MD Surgical History (Last Updated 12/21/21 @ 10:01 by Lucero Banda, RN) History of arthroplasty of right knee (05/21/20) History of arthroscopy of left shoulder History of carpal tunnel release History of nasal surgery Hx of arthroscopy of left knee Hx of knee surgery (~1975) Medical History (Last Updated 12/21/21 @ 10:30 by Lucero Banda RN) Anesthesia Diverticulitis Enlarged prostate History of revision of total replacement of right knee joint (10/01/21) HLD (hyperlipidemia) Hospitalization or health care facility admission within last 6 months (09/28/21) HTN (hypertension) IBS (irritable bowel syndrome) Infection of knee (09/2021) OBDULIA on CPAP Osteoarthritis Physical Therapy Inpatient Evaluation/Re-Eval M1 PT/OT-IP Prior Functional Status Start: 12/30/21 17:48 Freq: NEEDED Status: Active Protocol: Document 12/30/21 16:05 AB (Rec: 12/30/21 17:57 AB [id number]) Medical Review Prior Functional Status Medical History Reviewed Yes Communication able to make needs known Mobility and Gait pt stated that he has been mod I using crutches since september 2021 after knee spacer was put in Social History Household Members spouse Living Arrangements House Number of Floors (Floors) One Floor Number of Stairs To Enter/Railing? 2 steps B rails to enter from the garage Home Environment Standard Height Toilet,Tub/ Shower Home Equipment Front Wheel Walker,Crutches, Raised Toilet Seat w/Armrests, Shower Seat without Backrest, Hand Held Shower,Grab Bars Near Toilet,Grab Bars In Shower Additional Social History Comment has an adjustable bed M2 PT-IP Current Condition Start: 12/30/21 17:48 Freq: NEEDED Status: Active Protocol: Document 12/30/21 16:05 AB (Rec: 12/30/21 17:57 AB [id number]) Physical Therapy Current Condition Current Condition Evaluation Date 12/30/21 Treatment Diagnosis s/p R TKA revision; difficulty in walking Onset Date 12/30/21 M3 PT-IP Subjective Start: 12/30/21 17:48 Freq: NEEDED Status: Active Protocol: Document 12/30/21 16:05 AB (Rec: 12/30/21 17:57 AB [email or web address]) Subjective Physical Therapy Visit Type Type Initial Evaluation Visit Start Time 16:05 Visit Stop Time 16:41 Total Visit Minutes 36 Number of PRECISION LAYOUT WORKER Visits 0 Physical Therapy Visit Comments Patient Comments agreeable to do PT Therapy Pain Assessment Pain When Pain Assessed At Rest Location Right Knee Intensity 5 Scale Used Numeric (0 - 10) Pain Management Techniques Distraction,Modification of Treatment,Re-positioning, Timing of Activity with Medications M4 PT-IP Mobility and Gait Start: 12/30/21 17:48 Freq: NEEDED Status: Active Protocol: Document 12/30/21 16:05 AB (Rec: 12/30/21 17:57 AB [id number]) PT-Bed Mobility Assessment Supine to Sit Supine to Sit Standby Assistance Sit to Supine Sit to Supine Standby Assistance PT-Transfer Assessment Sit to and From Stand Sit to and from Stand Contact Guard Assistance,1 Person Assistance,Use of Upper Extremities Equipment Transfer Assistive Device Gait Belt,Front Wheeled Walker Orthotic/Prosthetic Devices or Brace: No Comments Mobility Comments completed supine to sit SBA. able to sit on EOB SBA. completed sit to stand CGA and ambulated in room using FWW CGA ~ 30 ft. pt went back to bed. completed sit to supine SBA. positioned pt in bed. Left pt with NAC. Gait Assessment Gait Gait Assistance Required: Contact Guard Assist Distance (Feet) 30 Able to Maintain Weight Bearing Status Yes During Gait Assistive Devices Assistive Device Gait Belt,Front Wheeled Walker Orthotic/Prosthetic Devices or Brace: No Gait Deviations General Gait Pattern Decreased Stride Length, Decreased Feet Clearance Factors Limiting Gait Function Factors Limiting Gait Function Decreased Activity Tolerance, Decreased Sensation,Decreased Strength,Limited Range of Motion,Pain,Poor Balance,Poor Safety Awareness PT-Balance Assessment Sitting Balance and Reactions Static Sitting Balance Ability Normal Dynamic Sitting Balance Ability Good Standing Balance and Reactions Static Standing Balance Ability Fair Dynamic Standing Balance Ability Fair Device Used FWW M5 PT-IP Objective Assessments Start: 12/30/21 17:48 Freq: NEEDED Status: Active Protocol: Document 12/30/21 16:05 AB (Rec: 12/30/21 17:57 AB [id number]) Orientation Orientation/Cognition Level of Alertness Alert Orientation Name,Place,Situation Language Function Ability No Deficits Noted Safety Awareness Understands Safety Issues Memory Description No Deficits Noted Gross Range of Motion Lower Extremity ROM Assessment Right Impaired Impairments R knee flexion: ~ 50 deg Strength Lower Extremity Strength Assessment Right Impaired Hip 4-/5 Knee 3+/5 Coordination Assessment Gross Coordination Gross Coordination WNL Sensation Assessment Sensation Gross Sensation Right LE Impaired Light Touch Impaired Proprioception (Position) Impaired Sensation Description Numbness Comments Sensation Comments stated that RLE is still slightly numb Muscle Tone Muscle Tone WNL Yes M6 PT-IP Treatment Start: 12/30/21 17:48 Freq: NEEDED Status: Active Protocol: Document 12/30/21 16:05 AB (Rec: 12/30/21 17:57 AB [id number]) Physical Therapy Treatment Education Education Provided Precautions,Weight Bearing Status,Post-Op Packet,Safety M7 PT-IP Assessment and Plan Start: 12/30/21 17:48 Freq: NEEDED Status: Active Protocol: Document 12/30/21 16:05 AB (Rec: 12/30/21 17:57 AB [id number]) PT Summary Assessment and Plan Potential Rehabilitation Potential Good Status of Condition at Evaluation Evolving Summary Impairments Pain,ROM,Strength,Balance, Coordination,Sensation,Tone, Cognition,Bed Mobility, Transfers,Gait,Activity Tolerance Assessment Summary pt requiring CGA with mobility using FWW. pt s/p R TKA revision and just had surgery today. pt plans to go home and spouse to assist him. will continue to assess progress. Goals Bed Mobility Goal Independent Transfer Goal Independent,Front Wheeled Walker Gait Goal Independent,Front Wheel Walker Gait Distance 200 Other Goals up/down 2 steps B rails mod I Days to Meet Goals 5 Frequency of Treatment Frequency Of Treatment Twice a Day Treatment Plan Physical Therapy Treatment Plan Bed Mobility Training,Transfer Training,Gait Training, Therapeutic Exercise,Balance Retraining,Post Op Education, Discharge Planning,Hot or Cold Pack,Neuromuscular Re-ed, Coordination Retraining,Manual Therapy Weight Bearing Status Weight Bearing Status Weight Bear as Tolerated Allowed Weight Bearing Amount (enter % RLE WBAT or #) (%) Recommendations To Nursing Amount of Assist Needed 1 Person Assist Discharge Recommendations PT Discharge Recommendations Home with Assistance, Outpatient PT Transportation Needs at Discharge Private Vehicle
[2021-12-30] MEDS: ACETAMINOPHEN 325 MG TABLET 650 MG PO (17:10)
[2021-12-30] MEDS: ASPIRIN EC 81 MG TABLET PO (20:42)
[2021-12-30] MEDS: lisinopriL 10 MG TABLET 30 MG PO (20:43)
[2021-12-30] MEDS: TAMSULOSIN 0.4 MG CAPSULE 0.8 MG PO (20:43)
[2021-12-30] MEDS: ATORVASTATIN 20 MG TABLET 10 MG PO (20:43)
[2021-12-30] MEDS: DOCUSATE 100 MG CAPSULE PO (20:43)
[2021-12-31] MEDS: ACETAMINOPHEN 325 MG TABLET 650 MG PO ×3 (00:11→11:29)
[2021-12-31] MEDS: IBUPROFEN 400 MG TABLET PO ×4 (00:11→12:25)
[2021-12-31] MEDS: CEFAZOLIN 2 GM/20 ML SYRINGE IV (00:11)
[2021-12-31 01:00] VITALS: BP 134/66; PULSE 79; RESP 16; TEMP 36.6; O2SAT 94
[2021-12-31 04:28] LABS: Hematocrit 38.5 % (41-53); Hemoglobin 13.1 g/dL (13.5-17.5)
[2021-12-31 06:00] VITALS: BP 134/73; PULSE 74; RESP 20; TEMP 36.3; O2SAT 97
--- NOTE | 2021-12-31 06:47 | PM.PNPO.1 ---
Subjective Subjective Date Patient Seen: 12/31/21 Time Patient Seen: 06:48 Interval history: Sitting up in bed comfortably, feeling well. Worked w/ PT yesterday, who felt he was safe to go home with assistance and outpt PT. Ramirez catheter in, will discontinue today. Eating without difficulty. Exam Vital Signs (past 8 hours): - 12/31/21 01:00 12/31/21 06:00 Temperature 97.9 F 97.3 F L Pulse Rate 79 74 Respiratory Rate 16 20 Blood Pressure 134/66 134/73 Pulse Oximetry 94 97 Oxygen Flow Rate 0 0 Oxygen Delivery Method Room Air Oxygen Flow Rate 0 Narrative Exam Narrative: 5/5 strength in hip flexors, quadriceps, hamstrings, DF, PF, EHL bilaterally. Sensation to light touch intact in BLE. Calves soft, compressible, nontender and without palpable cords or masses. Objective Labs Result Diagrams: 12/31/21 04:15 12/31/21 07:37 Labs: Laboratory Results - last 24 hr 12/31/21 04:15 Hgb 13.1 L Hct 38.5 L PFSH Medical History (Updated 12/21/21 @ 10:30 by Lucero Banda RN) Anesthesia Diverticulitis Enlarged prostate History of revision of total replacement of right knee joint (10/01/21) HLD (hyperlipidemia) Hospitalization or health care facility admission within last 6 months (09/28/21) HTN (hypertension) IBS (irritable bowel syndrome) Infection of knee (09/2021) OBDULIA on CPAP Osteoarthritis Surgical History (Updated 12/21/21 @ 10:01 by Lucero Banda RN) History of arthroplasty of right knee (05/21/20) History of arthroscopy of left shoulder History of carpal tunnel release History of nasal surgery Hx of arthroscopy of left knee Hx of knee surgery (~1975) Social History household members: spouse Smoking Status: Never smoker alcohol intake: current Assessment & Plan Post-op Assessment and plan (1) Status post revision of total knee: Assessment and Plan narrative: POD# 1 s/p removal of antibiotic spacer and revision of right total knee arthroplasty. Work with PT, SCDs and ASA for VTE prophylaxis. IV antibiotics while in hospital (vancomycin), plan to d/c home on oral antibiotics. Will discuss home abx regimen w/ Dr De La Cruz, likely discharge tomorrow if he continues to do well w/ PT and has no difficulty voiding. Postoperative Procedures: Procedures Operation Date: 12/30/21 07:45 Actual Procedure Side Surgeon p Revision Total Knee Arthroplasty Right Yazimn De La Cruz MD Postoperative day: 1 Quality VTE Deep Vein Thrombosis/Pulmonary Embolism Present on Admission: No
[2021-12-31 07:58] LABS: Estimated Glomerular Filt Rate > 60 mL/min (>60)
[2021-12-31] MEDS: OXYCODONE IR 5 MG TABLET PO ×3 (08:53→15:40)
[2021-12-31] MEDS: PRENATAL VIT,CALC/IRON/FOLIC 1 TABLET 1 TAB PO (08:54)
[2021-12-31] MEDS: DOCUSATE 100 MG CAPSULE PO (08:54)
[2021-12-31] MEDS: ASPIRIN EC 81 MG TABLET PO (08:54)
[2021-12-31] MEDS: VANCOMYCIN 1,500 MG/300 ML PIGGYBACK 200 MG IV (09:01)
--- NOTE | 2021-12-31 09:04 | CM.DANOTE ---
YINA Note: Payor: Abelardo PCP: MD Riccardo Pt is a catrina 61 y.o. M who presents to the floor following a R knee revision due to periprostetic infection to the R knee. Pt had a R total knee arthroplast on 05/21/20. He developed a periprostetic infection and was hospitalized on 10/01/21. Pt does have history of Arhritis, DJD, HTN, Benign prostatic hypertrophy, Hyperlidemia, and UC. Pt presented to the OR for surgery on 12/30. Currently, pt is awaiting cultures to determine abx use and to determine if IV abx vs oral abx are needed post discharge. Pt to work with PT today. DCP met with pt this morning bedside. Pt sitting up in bed with ice packs on R knee and watching TV. DCP introduced herself and role. Pt states that prior to admission, he used a walker and crutches to get around. Pt states that he lives in a house with no stairs. Pt states that he lives with his and has a great family support to help him post discharge. Pt states that we are awaiting cultures to come back to determine what type of abx he needs. Pt states that hopefully he wont need IV abx but if he does, pt has used [facility] before. Pt declines any other needs at this time. White board updated and instructed to call if any other questions arise. DCP called Kenn at [facility]. Left a message regarding potential for IV abx if cultures indicate. Instructed to call if any questions. P: Pt to work with PT today and await blood cultures. Once pt medically stable for discharge, pt to go home on either oral abx or IV abx with [facility]. Sheila Simms RN/YINA Discharge Planning/Care Management CM Discharge Assessment Start: 12/31/21 09:00 Freq: Status: Active Protocol: Document 12/31/21 09:00 [email or web address] (Rec: 12/31/21 09:02 [email or web address] [id number]) Discharge Planning Assessment Assigned Notched Blade Loader Sheila Simms RN/YINA Advance Directives? Yes Advance Directives on File No History Provided By Patient,Medical Record Has Patient been admitted in last 30 No days? Prior Living Arrangements House Household Members spouse Type of transporation used prior to Drives own vehicle admit Independent with ADL's Yes Is patient alert and oriented? Yes Caregiver for Another No DME Already Rented / Owned FWW / Walker,Crutches Comment If patient does need home IV, he is prepared for this, and has Zhou which most likely would cover. Pt has used [facility] in the past . Discharge Plan Home Transportation Arrangement Spouse Referrals Initiated Other Additional Comment May send referral to [facility], but ABO is not yet identified Whiteboard Updated in Patient Room with Yes name and ext. # of Notched Blade Loader Comment Instructed to call Review Status In Process Please Provide Date Initial DC 12/31/21 Assessment Was Performed Next Review Type Continued Stay Review Pre-Anesthesia Assessment Start: 12/21/21 09:55 Freq: Status: Complete Protocol: Document 12/21/21 09:55 CAB (Rec: 12/21/21 10:32 CAB [id number]) Pre-Anesthesia Assessment Preferred Name Alan Patient Information Reviewed Via Phone Assessment Assessment Completed With Patient Diagnostic Results BMP/CMP,CBC Comment Labs only @ 09/29/21, no ECG ordered, COVID screen @ Primary Care Provider Gino Gu Seen Specialist in Last 12 Months Yes Specialist Seen Orthopedist,Other Comment Infectious disease-Dr. Pearson Primary Language Divehi Preferred Language Divehi Tennis Director Required No Height 177.8 cm Weight 133.81 kg Body Mass Index (BMI) 42.3 Hearing Ability Normal Visual Assist Glasses Dentition Type Teeth, Natural Present,Teeth, Missing Barriers to Learning None Other Aids No Hx Anesthesia Reactions Yes: Delayed affects with spinal, urinary retention, required cassidy cath Hx Family Anesthesia Reaction No Hx Malignant Hyperthermia No Hx Blood Transfusions No Hx Blood Transfusion Reaction No Anesthesia Review Requested No Green Plumber No alcohol intake current alcohol intake frequency holidays/special occasions only Smoking Status Never smoker Substance Use Type does not use Pain Present Pain Reported Musculoskeletal Symptoms Abnormal Gait,Difficulty Walking,Joint Pain,Neck Pain History of Falling (Recent or History of No ) Patient is completely paralyzed or No completely immobile Prosthesis or Orthotic Device Front Wheel Walker,Crutches Mental Status Oriented to own ability Is patient on oxygen? No Does patient have NINA/SOB No Hx Sleep Apnea Yes CPAP/BIPAP use prescribed and used routinely Currently Taking a Beta Becky No Can You Climb a Flight of Stairs Without Yes SOB Hx Chest Pain No Hx SOB No Hx Syncope or Dizziness No Anti-Coagulant Therapy No Has a Perfume And Toilet Water Maker No Cardiac Testing No Hx Pacemaker/ICD No Pacemaker Rep Required? No Cardiac Clearance Received Not Applicable Diet Type At Home Regular dysphagia No Urinary Catheter Present No Hx Urinary Self Catheterization No Diabetes No Hx Drug Resistant Organism No Presence of External or Internal Medical Yes: CPAP, right knee Devices Have you had any close contact with No someone diagnosed with COVID-19? Received a COVID vaccine? Yes Received all doses? Yes Marital Status Lives With spouse Prior Living Arrangements House Number of Floors (Floors) One Floor Support System Spouse Patient Discharge Plan Description Return Home Comment Pt advised 1 night length of stay per surgeon Feels Safe in Current Environment Yes Been Physically Hurt or Threatened By a No Person in Current Environment Do you have thoughts of harming yourself None or others? Are you currently considering suicide? No Do you have a plan to hurt yourself or No Plan others? Do You Have Any Spiritual Beliefs That No May Affect Your HC Choices? Do You Have Any Cultural Practices That No May Affect Your HC Choices? Who Can We Speak to About Patient's Care Family, friends Identifying Code for Release of Patient Declines to issue Information Health Care Proxy/Next of Kin Cassandra () Health Care Proxy Emergency Contact Name Cassandra () Emergency Contact Advance Directives? No Power of Concreter No PAC Instructions Bring CPAP/BIPAP,Durable medical equipment,Medications to take/avoid,Nasal antibiotic ,No ETOH/petroleum product on skin DOS,NPO,Post-op transportation,Pre-surgical wash,Sensory aids,Sturdy shoes /comfortable clothes,Do not bring valuables and remove jewelry Stop Bang Assessment Do you snore loudly (louder than talking Yes or loud enough to be heard through closed doors) Do you often feel tired, fatigued or Yes sleepy during the daytime Has anyone ever observed you stop No breathing while sleeping? Do you have, or are you being treated Yes for, high blood pressure Is your BMI more than 35 kg/m2 Yes Age over 50 Yes Estimated neck circumference greater Yes than 40cm or 16in Gender male Yes Result Positive
--- NOTE | 2021-12-31 10:00 | PT.IPTN ---
Current Diagnoses Infection and inflammatory reaction due to internal right knee prosthesis, initial encounter (12/30/21) Presence of unspecified artificial knee joint (12/30/21) Surgery Performed Operation Date: 12/30/21 07:45 Actual Procedures p Revision Total Knee Arthroplasty(Right) - Yazmin De La Cruz MD Physical Therapy Treatment Note M2 PT-IP Current Condition Start: 12/30/21 17:48 Freq: NEEDED Status: Active Protocol: Document 12/30/21 16:05 AB (Rec: 12/30/21 17:57 AB [email or web address]) Physical Therapy Current Condition Current Condition Evaluation Date 12/30/21 Treatment Diagnosis s/p R TKA revision; difficulty in walking Onset Date 12/30/21 M3 PT-IP Subjective Start: 12/30/21 17:48 Freq: NEEDED Status: Active Protocol: Document 12/31/21 10:00 NBM (Rec: 12/31/21 13:47 NBM [id number]) Subjective Physical Therapy Visit Type Type Treatment Note Visit Start Time 09:34 Visit Stop Time 10:00 Total Visit Minutes 26 Number of LIFE MANAGER Visits 1 Physical Therapy Visit Comments Patient Comments agreeable to do PT Therapy Pain Assessment Pain When Pain Assessed At Rest Pain Present Pain Present Pain Reported Location Right Knee Intensity 3 Scale Used Numeric (0 - 10) Pain Management Techniques Apply Cold,Distraction, Modification of Treatment,Re- positioning,Timing of Activity with Medications M4 PT-IP Mobility and Gait Start: 12/30/21 17:48 Freq: NEEDED Status: Active Protocol: Document 12/31/21 10:00 NBM (Rec: 12/31/21 13:47 NB [id number]) PT-Bed Mobility Assessment Rolling Type of Rolling Log Rolling,Roll to Right Level of Assist Standby Assistance Supine to Sit Supine to Sit Standby Assistance Sit to Supine Sit to Supine Standby Assistance PT-Transfer Assessment Sit to and From Stand Sit to and from Stand Contact Guard Assistance,Use of Upper Extremities Equipment Transfer Assistive Device Gait Belt,Front Wheeled Walker Orthotic/Prosthetic Devices or Brace: No Transfers Transfer Destination Chair Transfer Technique Stand Step Pivot Transfer Ability Level of Assist Standby Assistance,Contact Guard Assistance Comments Mobility Comments Pt was in bed upon arrival and agreeable to PT. pn at rest 3 -4/10. Pt completed ankle pumps x 10 and heel slides x 10. Pt sat EOB from supine w/ SBA. Sit<>Stand w/ FWW, CGA. Pt ambulated ~100ft CGA w/ standing rest breaks, vc for upright posture - good FWW management. Pt ascended/ descended 3 stairs x 2 rep w/ Vu rails, vc for leading leg initially which pt then demonstrated appropriately. Pt ambulated ~100ft back to room w vc for upright posture. .5 increase in pain reported w/ ambulation. Stand<>Sit in chair w/FWW, CGA. Pt left in chair w/ call light and all needs within reach. Gait Assessment Gait Gait Assistance Required: Contact Guard Assist Distance (Feet) 200 Able to Maintain Weight Bearing Status Yes During Gait Assistive Devices Assistive Device Gait Belt,Front Wheeled Walker Orthotic/Prosthetic Devices or Brace: No Gait Deviations General Gait Pattern Decreased Stride Length, Decreased Feet Clearance Factors Limiting Gait Function Factors Limiting Gait Function Decreased Activity Tolerance, Decreased Sensation,Decreased Strength,Limited Range of Motion,Pain,Poor Balance,Poor Safety Awareness Comments Gait Comments Pt demonstrates good FWW management and requires occasional vc for upright posture. See mobility for more details. Stair Climbing Assessment Evaluation Level of Assist On Stairs Standby Assistance Devices Stair Climbing Assistive Devices Left Railing,Right Railing Technique/Endurance Stair Climbing Direction Ascend and Descend Stair Climbing Technique Step to Step Number of Steps Climbed 3 Stair Climbing Set # Repetitions (reps) 2 Comments Stair Climbing Comments Pt initially confused which limb to lead with but demonstrated improved self- awareness after education. PT-Balance Assessment Sitting Balance and Reactions Static Sitting Balance Ability Normal Dynamic Sitting Balance Ability Good Standing Balance and Reactions Static Standing Balance Ability Fair Dynamic Standing Balance Ability Fair Device Used FWW M5 PT-IP Objective Assessments Start: 12/30/21 17:48 Freq: NEEDED Status: Active Protocol: Document 12/30/21 16:05 AB (Rec: 12/30/21 17:57 AB [id number]) Orientation Orientation/Cognition Level of Alertness Alert Orientation Name,Place,Situation Language Function Ability No Deficits Noted Safety Awareness Understands Safety Issues Memory Description No Deficits Noted Gross Range of Motion Lower Extremity ROM Assessment Right Impaired Impairments R knee flexion: ~ 50 deg Strength Lower Extremity Strength Assessment Right Impaired Hip 4-/5 Knee 3+/5 Coordination Assessment Gross Coordination Gross Coordination WNL Sensation Assessment Sensation Gross Sensation Right LE Impaired Light Touch Impaired Proprioception (Position) Impaired Sensation Description Numbness Comments Sensation Comments stated that RLE is still slightly numb Muscle Tone Muscle Tone WNL Yes M6 PT-IP Treatment Start: 12/30/21 17:48 Freq: NEEDED Status: Active Protocol: Document 12/31/21 10:00 NBM (Rec: 12/31/21 13:47 [facility] [id number]) Physical Therapy Treatment Exercises Exercises Ankle Pumps,Heel Slides Education Education Provided Precautions,Weight Bearing Status,Safety M7 PT-IP Assessment and Plan Start: 12/30/21 17:48 Freq: NEEDED Status: Active Protocol: Document 12/31/21 10:00 NBM (Rec: 12/31/21 13:47 [facility] [id number]) PT Summary Assessment and Plan Potential Rehabilitation Potential Good Status of Condition at Evaluation Evolving Summary Impairments Pain,ROM,Strength,Balance, Coordination,Sensation,Tone, Cognition,Bed Mobility, Transfers,Gait,Activity Tolerance Assessment Summary pt requiring CGA with mobility using FWW. pt s/p R TKA revision and just had surgery today. pt plans to go home and spouse to assist him. will continue to assess progress. Goals Bed Mobility Goal Independent Transfer Goal Independent,Front Wheeled Walker Gait Goal Independent,Front Wheel Walker Gait Distance 200 Other Goals up/down 2 steps B rails mod I Days to Meet Goals 5 Frequency of Treatment Frequency Of Treatment Twice a Day Treatment Plan Physical Therapy Treatment Plan Bed Mobility Training,Transfer Training,Gait Training, Therapeutic Exercise,Balance Retraining,Post Op Education, Discharge Planning,Hot or Cold Pack,Neuromuscular Re-ed, Coordination Retraining,Manual Therapy Other Recommendations and Next Treatment coordinate time for CGT with Focus (?) Weight Bearing Status Weight Bearing Status Weight Bear as Tolerated Allowed Weight Bearing Amount (enter % RLE WBAT or #) (%) Recommendations To Nursing Amount of Assist Needed 1 Person Assist Discharge Recommendations PT Discharge Recommendations Home with Assistance, Outpatient PT Transportation Needs at Discharge Private Vehicle
[2021-12-31 12:13] VITALS: BP 120/71; PULSE 80; RESP 16; O2SAT 96
--- NOTE | 2021-12-31 14:05 | PT.IPTN ---
Current Diagnoses Infection and inflammatory reaction due to internal right knee prosthesis, initial encounter (12/30/21) Presence of unspecified artificial knee joint (12/30/21) Surgery Performed Operation Date: 12/30/21 07:45 Actual Procedures p Revision Total Knee Arthroplasty(Right) - Yazmin De La Cruz MD Physical Therapy Treatment Note M2 PT-IP Current Condition Start: 12/30/21 17:48 Freq: NEEDED Status: Active Protocol: Document 12/30/21 16:05 AB (Rec: 12/30/21 17:57 AB [email or web address]) Physical Therapy Current Condition Current Condition Evaluation Date 12/30/21 Treatment Diagnosis s/p R TKA revision; difficulty in walking Onset Date 12/30/21 M3 PT-IP Subjective Start: 12/30/21 17:48 Freq: NEEDED Status: Active Protocol: Document 12/31/21 14:05 NBM (Rec: 12/31/21 14:26 NBM [id number]) Subjective Physical Therapy Visit Type Type Treatment Note Visit Start Time 13:52 Visit Stop Time 14:05 Total Visit Minutes 13 Number of TRANS ROUTER Visits 2 Physical Therapy Visit Comments Patient Comments agreeable to do PT Therapy Pain Assessment Pain When Pain Assessed At Rest Pain Present Pain Present Pain Reported Location Right Knee Intensity 4 Scale Used Numeric (0 - 10) Pain Management Techniques Apply Cold,Distraction, Modification of Treatment,Re- positioning,Timing of Activity with Medications M4 PT-IP Mobility and Gait Start: 12/30/21 17:48 Freq: NEEDED Status: Active Protocol: Document 12/31/21 14:05 NBM (Rec: 12/31/21 14:26 NB [id number]) PT-Bed Mobility Assessment Rolling Type of Rolling Roll to Left Level of Assist Standby Assistance Sit to Supine Sit to Supine Standby Assistance PT-Transfer Assessment Sit to and From Stand Sit to and from Stand Contact Guard Assistance,Use of Upper Extremities Equipment Transfer Assistive Device Gait Belt,Front Wheeled Walker Orthotic/Prosthetic Devices or Brace: No Transfers Transfer Destination Bed Transfer Technique Stand Step Pivot Transfer Ability Level of Assist Standby Assistance,Contact Guard Assistance Comments Mobility Comments Pt was in chair upon arrival and agreeable to PT. Pn at rest 3-4/10. Pt completed seated heel slides x 10. Sit<> Stand w/ FWW, CGA. Pt ambulated ~50ft CGA w/ one standing rest break, vc for upright posture and more weight into RLE and allow knee bend- good FWW management. Pt then stood ~2 min, then ambulated back to room ~50 ft w/ one standing rest break, improved weightbearing into RLE. Pt performed Stand<>Sit EOB w/FWW, CGA, vc for hand placement. Sitting EOB to supine performed independently . Pt left in bed w/ SCDs, call light and all needs within reach. Gait Assessment Gait Gait Assistance Required: Contact Guard Assist Distance (Feet) 100 Able to Maintain Weight Bearing Status Yes During Gait Assistive Devices Assistive Device Gait Belt,Front Wheeled Walker Orthotic/Prosthetic Devices or Brace: No Gait Deviations General Gait Pattern Decreased Stride Length, Decreased Feet Clearance Factors Limiting Gait Function Factors Limiting Gait Function Decreased Activity Tolerance, Decreased Sensation,Decreased Strength,Limited Range of Motion,Pain,Poor Balance,Poor Safety Awareness Comments Gait Comments Pt requires vc for increased weightbearing into RLE. See Mobility section for more details. PT-Balance Assessment Sitting Balance and Reactions Static Sitting Balance Ability Normal Dynamic Sitting Balance Ability Good Standing Balance and Reactions Static Standing Balance Ability Fair Dynamic Standing Balance Ability Fair Device Used FWW M5 PT-IP Objective Assessments Start: 12/30/21 17:48 Freq: NEEDED Status: Active Protocol: Document 12/30/21 16:05 AB (Rec: 12/30/21 17:57 AB [id number]) Orientation Orientation/Cognition Level of Alertness Alert Orientation Name,Place,Situation Language Function Ability No Deficits Noted Safety Awareness Understands Safety Issues Memory Description No Deficits Noted Gross Range of Motion Lower Extremity ROM Assessment Right Impaired Impairments R knee flexion: ~ 50 deg Strength Lower Extremity Strength Assessment Right Impaired Hip 4-/5 Knee 3+/5 Coordination Assessment Gross Coordination Gross Coordination WNL Sensation Assessment Sensation Gross Sensation Right LE Impaired Light Touch Impaired Proprioception (Position) Impaired Sensation Description Numbness Comments Sensation Comments stated that RLE is still slightly numb Muscle Tone Muscle Tone WNL Yes M6 PT-IP Treatment Start: 12/30/21 17:48 Freq: NEEDED Status: Active Protocol: Document 12/31/21 14:05 NBM (Rec: 12/31/21 14:26 NB [id number]) Physical Therapy Treatment Exercises Exercises Heel Slides Education Education Provided Precautions,Weight Bearing Status,Safety M7 PT-IP Assessment and Plan Start: 12/30/21 17:48 Freq: NEEDED Status: Active Protocol: Document 12/31/21 14:05 [facility] (Rec: 12/31/21 14:26 [facility] [id number]) PT Summary Assessment and Plan Potential Rehabilitation Potential Good Status of Condition at Evaluation Evolving Summary Impairments Pain,ROM,Strength,Balance, Coordination,Sensation,Tone, Cognition,Bed Mobility, Transfers,Gait,Activity Tolerance Assessment Summary Pt demonstrates good bed mobility SBA. Requires vc w/ gait for weightbearing into RLE and upright posture. Pt ambulated ~100ft w/ standing rest breaks. Pt plans to go home and spouse to assist him. will continue to assess progress. Goals Bed Mobility Goal Independent Transfer Goal Independent,Front Wheeled Walker Gait Goal Independent,Front Wheel Walker Gait Distance 200 Other Goals up/down 2 steps B rails mod I Days to Meet Goals 5 Frequency of Treatment Frequency Of Treatment Twice a Day Treatment Plan Physical Therapy Treatment Plan Bed Mobility Training,Transfer Training,Gait Training, Therapeutic Exercise,Balance Retraining,Post Op Education, Discharge Planning,Hot or Cold Pack,Neuromuscular Re-ed, Coordination Retraining,Manual Therapy Other Recommendations and Next Treatment coordinate time for CGT with Focus (?) Weight Bearing Status Weight Bearing Status Weight Bear as Tolerated Allowed Weight Bearing Amount (enter % RLE WBAT or #) (%) Recommendations To Nursing Amount of Assist Needed 1 Person Assist Discharge Recommendations PT Discharge Recommendations Home with Assistance, Outpatient PT Transportation Needs at Discharge Private Vehicle
--- NOTE | 2021-12-31 14:50 | P.DS_ITS ---
History of Present Illness History of Present Illness Date Patient Seen: 12/31/21 Time Patient Seen: 14:50 Chief complaint: OPB Narrative: Operative Date/Time/Diagnoses Date of procedure: 12/30/21 Time of procedure: 08:00 Pre-op diagnosis: Retained antibiotic spacer with a right knee history of periprosthetic infection Post-op diagnosis: same Procedure & Clinicians Procedure: Revision right total knee arthroplasty with removal of antibiotic spacer and placement of revision total knee arthroplasty Same procedure as scheduled: Yes Surgeon: Yazmin De La Cruz [employer] Engineer: Craig Argueta Anesthesia Type: General and Spinal Operative Notes Findings: No evidence of active infection, multiple specimen sent, adequate bone, antibiotic spacer removed with essentially no bone loss. Closure Type: primary Specimen(s): none sent Prosthetic devices, grafts, tissues, transplants, or devices: Legion revision size 7 tibial base plate plate, 14 x 160 cemented femoral stem, right legion revision femoral component, distal augments 5 mm medial and lateral femoral condyle, 12 x 160 cemented tibial stem, size 15 posterior stabilized poly, 38 mm round patella, size 7 constrained femoral component Applied: drain(s) Estimated Blood Loss (mL): 250 Blood products transfused: none Tourniquet time (min): 124 Discharge Providers Provider Discharge Date: 12/31/21 Primary care physician: Gino Gu MD Consults: 12/30/21 07:06 Consult to Respiratory Therapy Evaluate & Treat Comment: Physician Instructions: Evaluate and treat 12/30/21 07:41 Consult to Anesthesiology Routine Comment: Consulting Provider: Anesthesiologist Reason for consultation: Regional block for post operative pain control 12/30/21 12:48 Consult to Discharge Planning Routine Comment: Consult to Physical Therapy Evaluate & Treat Comment: Physician Instructions: postop TKA protocol Consult to Respiratory Therapy Evaluate & Treat Comment: Physician Instructions: Evaluate and treat Discharge provider: Kacie Shah PA-C Summary Hospital Course Discharge Diagnosis: s/p total knee revision Hospital Course: Mr Ellis's hospital course was unremarkable. On POD# 1 he was feeling well and wanted to go home. He was eating and voiding without difficulty and PT felt he was appropriate for discharge with family and outpatient PT. Exam Vital Signs (past 8 hours): - 12/31/21 12:13 Pulse Rate 80 Respiratory Rate 16 Blood Pressure 120/71 Pulse Oximetry 96 Oxygen Flow Rate 0 Oxygen Delivery Method Room Air Oxygen Flow Rate 0 Narrative Exam Narrative: Please see today's earlier progress note. Objective Labs Result Diagrams: 12/31/21 04:15 12/31/21 07:37 Labs: Laboratory Results - last 24 hr 12/31/21 12/31/21 04:15 07:37 Hgb 13.1 L Hct 38.5 L Creatinine 0.76 Estimated GFR > 60 PFSH Medical History (Updated 12/21/21 @ 10:30 by Lucero Banda RN) Anesthesia Diverticulitis Enlarged prostate History of revision of total replacement of right knee joint (10/01/21) HLD (hyperlipidemia) Hospitalization or health care facility admission within last 6 months ( 09/28/21) HTN (hypertension) IBS (irritable bowel syndrome) Infection of knee (09/2021) OBDULIA on CPAP Osteoarthritis Surgical History (Updated 12/21/21 @ 10:01 by Lucero Banda RN) History of arthroplasty of right knee (05/21/20) History of arthroscopy of left shoulder History of carpal tunnel release History of nasal surgery Hx of arthroscopy of left knee Hx of knee surgery (~1975) Social History household members: spouse Smoking Status: Never smoker alcohol intake: current Discharge Assessment & Plan Assessment and Plan Assessment: s/p revision of right total knee arthroplasty due to infection Plan of Treatment: Multimodal pain control Outpt PT ASA BID for VTE prophylaxis Bactrim DS BID x 3 months Follow up in office in 2 weeks Discharge Plan Discharge Plan Patient Disposition: Home Discharge orders & Medications Discharge Orders: Discharge (Order); Ordered 12/31/21 Ordered By: Kacie Shah Prescriptions: New acetaminophen 325 mg Tablet 650 mg PO Q6HR Qty: 240 1RF aspirin 81 mg Tablet,Delayed Release (Dr/Ec) 81 mg PO BID Qty: 90 0RF docusate sodium 100 mg Capsule 100 mg PO BID PRN (Reason: constipation) Qty: 60 1RF ibuprofen 400 mg Tablet 400 mg PO Q4HR Qty: 240 0RF oxycodone 5 mg Tablet 5 mg PO Q3HR PRN (Reason: Pain, Moderate (4-6)) Qty: 60 0RF sulfamethoxazole-trimethoprim [Bactrim DS] 800-160 mg tablet 1 tab PO BID Qty: 60 2RF Rx Instructions: Take for 3 months total. Continued cyclobenzaprine 10 mg tablet 5 mg PO DIRECTED PRN (Reason: spasm) atorvastatin 10 mg Tablet 10 mg PO BEDTIME tamsulosin [Flomax] 0.4 mg Capsule 0.8 mg PO BEDTIME lisinopril 30 mg Tablet 30 mg PO BEDTIME Multi Complete with Iron 18-400 mg-mcg Tablet 1 tab PO DAILY Follow up/Referrals: Gino Gu MD [Primary Care Provider] - Yamzin De La Cruz MD [Physician] - As previously scheduled (Follow up with Craig Argueta PA-C, on 01/14/2022 @ 11:10 am at [facility] office in [place].) Diet/Activity/Treatments Diet: Diet as Tolerated Activity: Walk frequently! Cold/Heat Therapy: Ice to knee as needed for pain. Other treatments: Start antibiotics (bactrim) tonight (12/31) and take twice a day for 3 months total. Skin/Wound/Dressing Care Report to your healthcare provider any signs of infection, such as:: chills, fever, night sweats, unusual drainage and unusual redness Dressing: May take EVER wrap off and shower. Leave ELICEO dressing in place. When batteries , may remove battery pack and discard. Leave dressing in place until follow up in office. No bathing or otherwise soaking incision. Visit Report/Discharge Packet Instructions: DI for Knee Replacement Stand Alone Forms: Surgery Discharge Discharge Data Primary Care Provider: Gino Gu Attending Provider: Yazmin De La Cruz Quality VTE Deep Vein Thrombosis/Pulmonary Embolism Present on Admission: No
[2021-12-31 15:39] VITALS: BP 120/58; PULSE 73; RESP 18; O2SAT 97
--- NOTE | 2021-12-31 16:15 | PC.NURSE ---
Day shift: Paperwork signed and all questions answered. ELICEO functioning proper. Delbert-vac removed and Pt tolerated well. VS WNL. RA 98%. CMS intact and cleared by PT to go home. Pt has all personal belongings. Spouse in room for d/c teachings. Left AC unit via LINDEN w/ KARINA Barker at approx 1615. His spouse is driving him home. MEdicated for pain per MAR and pain has been well controlled.
[2022-01-06 08:06] LABS: Bacteria Det by PCR Univ WA SEE SCAN
== END 2021-12-31 16:17 | disposition home or self-care (01) ==
LOC: OR 06:14 → AC 06:14
PROVIDERS: PCP Family Medicine; Referring Provider Orthopaedic Surgery; Visit Provider Orthopaedic Surgery
PROC: (CPT 27487; principal; 2021-12-30 07:45)
DX: T84.53XA Infection and inflammatory reaction due to internal right knee prosthesis, initial encounter (principal); M17.12 Unilateral primary osteoarthritis, left knee; E66.9 Obesity, unspecified; I10 Essential (primary) hypertension; G47.33 Obstructive sleep apnea (adult) (pediatric); E78.5 Hyperlipidemia, unspecified; N40.0 Benign prostatic hyperplasia without lower urinary tract symptoms; K51.90 Ulcerative colitis, unspecified, without complications; Z68.41 Body mass index [BMI] 40.0-44.9, adult
CPT/HCPCS: 27487; 36415; 73560; 82565; 85014; 85018; 87070; 87075; 87205; 87801; 97116; 97162; C1776; C1713; C9290; J0171; J0690; J1100; J1170; J2250; J2274; J2405; J2704; J3010